=== PATIENT | male | born 1980 | race Caucasian/White ===

== ENCOUNTER 2020-05-06 14:12 | Inpatient (IN) | payer BC ==
[~2020-05-06] VITALS: Ht 172.7 cm; Wt 130.4 kg
[2020-05-06] MEDS ORDERED: methylPREDNISolone SOD SUCC PF 125 MG/2 ML VIAL. IV ONE (15:00)
[2020-05-06] MEDS ORDERED: IV NORMAL SALINE 1000ML BAG 1,000 ML IV ONE (15:00)
--- NOTE | 2020-05-06 15:03 | ED.ADGEN ---
Past Medical History Past Medical History: Hypertension, Pneumonia Past Surgical History: Other Additional Past Surgical Histo: KNEE SURGERY, BROKEN RIGHT ARM WITH SURGERY Smoking Status: Current Some Day Smoker Alcohol Use: Occasionally General Adult EDM: Chief Complaint: SHORTNESS OF BREATH HPI: HPI: Patient is a 40-year-old male who arrives ambulatory to the emergency department complaining progressive difficulty breathing. Patient reports his breathing today has become considerably more labored than it has in the past 2 days. Patient reports on Monday this week he was diagnosed with coronavirus. Patient reports since that time he has become progressively more short of breath and sta kendra he has mild chest tightness. Patient is speaking in multiple words however does not make complete sentences. He is awake, alert and ill-appearing. Review of Systems: Review of Systems: Constitutional: Denies fever or chills. [] Eyes: Denies change in visual acuity. [] HENT: Denies nasal congestion or sore throat. [] Respiratory: Reports to difficulty/shortness of air with coughing. Cardiovascular: Reports chest tightness. GI: Denies abdominal pain, nausea, vomiting, bloody stools or diarrhea. [] : Denies dysuria. [] Musculoskeletal: Denies back pain or joint pain. [] Integument: Denies rash. [] Neurologic: Denies headache, focal weakness or sensory changes. [] Endocrine: Denies polyuria or polydipsia. [] Lymphatic: Denies swollen glands. [] Psychiatric: Denies depression or anxiety. [] Current Medications: Current Medications Medications (Trade) Dose Ordered Sig/Eri Start Time Stop Time Status Last Admin Dose Admin Levofloxacin/ Dextrose 150 ml @ 100 mls/hr 1X ONCE 05/06/20 15:00 05/06/20 16:29 05/06/20 15:25 100 MLS/HR Methylprednisolone Sodium Succinate (SOLU-Medrol 125MG VIAL) 125 mg 1X ONCE 05/06/20 15:00 05/06/20 15:01 DC 05/06/20 15:24 125 MG Sodium Chloride 1,000 ml @ 1,000 mls/hr 1X ONCE 05/06/20 15:00 05/06/20 15:59 DC 05/06/20 15:25 1,000 MLS/HR Allergies: Allergies: Allergies Coded Allergies Type Severity Reaction Last Updated Verified No Known Drug Allergies 05/06/20 No Physical Exam: PE: Constitutional: Patient is visibly uncomfortable and ill-appearing. Well developed, well nourished, non-toxic appearance. [] HENT: Normocephalic, atraumatic, bilateral external ears normal, oropharynx moist, no oral exudates, nose normal. [] Eyes: PERRLA, EOMI, conjunctiva normal, no discharge. [] Neck: Normal range of motion, no tenderness, supple, no stridor. [] Cardiovascular: Tachycardia. no murmur [] Lungs & Thorax: Patient demonstrates tachypnea with shallow breathing. There are scant crackles in the may be heard bilaterally. Abdomen: Bowel sounds normal, soft, no tenderness, no masses, no pulsatile masses. [] Skin: Warm, dry, no erythema, no rash. [] Back: No tenderness, no CVA tenderness. [] Extremities: No tenderness, no cyanosis, no clubbing, ROM intact, no edema. [] Neurologic: Alert and oriented X 3, normal motor function, normal sensory function, no focal deficits noted. [] Psychologic: Affect normal, judgement normal, mood normal. [] Current Patient Data: Labs: Laboratory Tests Test 05/06/20 14:23 05/06/20 15:31 White Blood Count 6.9 x10^3/uL (4.0-11.0) Red Blood Count 4.93 x10^6/uL (4.30-5.70) Hemoglobin 14.1 g/dL (13.0-17.5) Hematocrit 40.6 % (39.0-53.0) Mean Corpuscular Volume 83 fL (79-100) Mean Corpuscular Hemoglobin 29 pg (25-35) Mean Corpuscular Hemoglobin Concent 35 g/dL (31-37) Red Cell Distribution Width 13.1 % (11.5-14.5) Platelet Count 166 x10^3/uL (140-400) Neutrophils (%) (Auto) 86 % (31-73) H Lymphocytes (%) (Auto) 8 % (24-48) L Monocytes (%) (Auto) 6 % (0-9) Eosinophils (%) (Auto) 0 % (0-3) Basophils (%) (Auto) 1 % (0-3) Neutrophils # (Auto) 5.9 x10^3/uL (1.8-7.7) Lymphocytes # (Auto) 0.5 x10^3/uL (1.0-4.8) L Monocytes # (Auto) 0.4 x10^3/uL (0.0-1.1) Eosinophils # (Auto) 0.0 x10^3/uL (0.0-0.7) Basophils # (Auto) 0.0 x10^3/uL (0.0-0.2) Platelet Estimate Pending Sodium Level 130 mmol/L (136-145) L Potassium Level 3.8 mmol/L (3.5-5.1) Chloride Level 93 mmol/L (98-107) L Carbon Dioxide Level 27 mmol/L (21-32) Anion Gap 10 (6-14) Blood Urea Nitrogen 14 mg/dL (8-26) Creatinine 1.1 mg/dL (0.7-1.3) Estimated GFR (Cockcroft-Gault) 73.8 BUN/Creatinine Ratio 13 (6-20) Glucose Level 152 mg/dL (70-99) H Calcium Level 9.0 mg/dL (8.5-10.1) Total Bilirubin 1.2 mg/dL (0.2-1.0) H Aspartate Amino Transferase (AST) 76 U/L (15-37) H Alanine Aminotransferase (ALT) 127 U/L (16-63) H Alkaline Phosphatase 132 U/L (46-116) H Creatine Kinase 123 U/L (39-308) Creatine Kinase MB (Mass) 0.7 ng/mL (0.0-3.6) Creatine Kinase MB Relative Index 0.6 % (0-4) Troponin I Quantitative < 0.017 ng/mL (0.000-0.055) WV-Nwt-H-Type Natriuretic Peptide 260 pg/mL (0-124) H Total Protein 7.4 g/dL (6.4-8.2) Albumin 3.0 g/dL (3.4-5.0) L Albumin/Globulin Ratio 0.7 (1.0-1.7) L Influenza Type A Antigen Negative (NEGATIVE) Influenza Type B Antigen Negative (NEGATIVE) Laboratory Tests 05/06/20 14:23 Laboratory Tests 05/06/20 14:23 Vital Signs: Vital Signs Date Time Temp Pulse Resp B/P (MAP) Pulse Ox O2 Delivery O2 Flow Rate FiO2 05/06/20 15:40 Venturi Mask 05/06/20 14:22 103.2 140 24 178/89 (118) 5.0 103.2 EKG: EKG: EKG was obtained at 1435 hrs. and demonstrates sinus tachycardia ventricular rate of 138 bpm. There is left axis deviation present with a left anterior fascicular block. I did not appreciate any acute ST/T wave changes denoting ischemia. [] Heart Score: HEART Score for Chest Pain: HEART Score for Chest Pain Response (Comments) Value History Slighlty/Non-Suspicious 0 ECG Normal 0 Age < 45 0 Risk Factors >3 Risk Factors or Hx CAD 2 Troponin < Normal Limit 0 Total 2 Risk Factors: Risk Factors: DM, Current or recent (<one month) smoker, HTN, HLP, family history of CAD, obesity. Risk Scores: Score 0 - 3: 2.5% MACE over next 6 weeks - Discharge Home Score 4 - 6: 20.3% MACE over next 6 weeks - Admit for Clinical Observation Score 7 - 10: 72.7% MACE over next 6 weeks - Early Invasive Strategies Radiology/Procedures: Radiology/Procedures: [] Impression: [facility] [address] [place], [place] [id number] IMAGING REPORT Signed PATIENT: ARIANNE JARVIS ACCOUNT: [id number] : 1980 LOCATION: ER AGE: 40 SEX: M EXAM STATUS: PRE ER ORD. PHYSICIAN: GAETANO MENDOZA DO REASON: SOA PROCEDURE: PORTABLE CHEST 1V Examination: XR CHEST 1V History: Reason: SOA / Spl. Instructions: / History: Comparison/Correlation: None Findings: Portable frontal view chest was obtained. Heart size normal. Pulmonary vessels which are is borderline. Limited pulmonary inflation. Extensive infiltrates throughout the lung lord noted. No pneumothorax. Bony structures are unremarkable. Minimal left pleural effusion is questioned. Left costophrenic angle is not optimally included. Impression: Extensive infiltrates throughout the lung lord. Follow-up to resolution recommended. Electronically signed by: Tico Maradiaga MD (05/06/2020 3:13 PM) [id number] DICTATED and SIGNED BY: TICO MARADIAGA MD DATE: 05/06/20 [id number] 0 Course & Med Decision Making: Course & Med Decision Making Pertinent Labs and Imaging studies reviewed. (See chart for details) [] Shikhaon Disclaimer: Elisabeth Disclaimer: This electronic medical record was generated, in whole or in part, using a voice recognition dictation system. Departure Departure Impression: Primary Impression: COVID-19 Additional Impressions: Respiratory failure Transaminitis Hyponatremia Disposition: ADMITTED INPT THIS HOSP Admitting Physician: KAMILLA Condition: CRITICAL Problem Qualifiers GAETANO MENDOZA DO May 06, 2020 15:03
--- NOTE | 2020-05-06 15:15 | RAD ---
Examination: XR CHEST 1V History: Reason: SOA / Spl. Instructions: / History: Comparison/Correlation: None Findings: Portable frontal view chest was obtained. Heart size normal. Pulmonary vessels which are is borderline. Limited pulmonary inflation. Extensive infiltrates throughout the lung lord noted. No pneumothorax. Bony structures are unremarkable. Minimal left pleural effusion is questioned. Left cos tophrenic angle is not optimally included. Impression: Extensive infiltrates throughout the lung lord. Follow-up to resolution recommended. Electronically signed by: Tico Worthington MD (05/06/2020 3:13 PM) [id number]
[2020-05-06 15:16] LABS: BASO % 1 % (0-3); EOS % 0 % (0-3); HEMATOCRIT 40.6 % (39.0-53.0); HEMOGLOBIN 14.1 g/dL (13.0-17.5); LYMPH # 0.5 x10^3/uL (1.0-4.8); LYMPH % 8 % (24-48); MEAN CORPUSCULAR HEMOGLOBIN 29 pg (25-35); MEAN CORPUSCULAR HGB CONC 35 g/dL (31-37); MEAN CORPUSCULAR VOLUME 83 fL (79-100); MONO # 0.4 x10^3/uL (0.0-1.1); MONO % 6 % (0-9); NEUT # 5.9 x10^3/uL (1.8-7.7); NEUT % 86 % (31-73); PLATELET COUNT 166 x10^3/uL (140-400); RED BLOOD COUNT 4.93 x10^6/uL (4.30-5.70); RED CELL DISTRIBUTION WIDTH 13.1 % (11.5-14.5); WHITE BLOOD COUNT 6.9 x10^3/uL (4.0-11.0)
[2020-05-06 15:43] LABS: CREATININE 1.1 mg/dL (0.7-1.3); GFR 73.8; POTASSIUM 3.8 mmol/L (3.5-5.1)
[2020-05-06 15:49] LABS: ALBUMIN/GLOBULIN RATIO 0.7 (1.0-1.7); TOTAL BILIRUBIN 1.2 mg/dL (0.2-1.0); TOTAL PROTEIN 7.4 g/dL (6.4-8.2)
[2020-05-06 16:06] LABS: BASE EXCESS ABG 2 mmol/L (-3-3); HCO3 ABG 23 mmol/L (21-28); PCO2 ABG 26 mmHg (35-46); PO2 ABG 67 mmHg (75-108); SAT O2 ABG 95 % (92-99)
--- NOTE | 2020-05-06 16:11 | PDOC1 ---
History and Physical Date of Admission Date of Admission DATE: 05/06/20 TIME: 16:09 Identification/Chief Complaint Chief Complaint seen in er with acute resp distress, known COVID POSITIVE 40-year-old male who arrives ambulatory to the emergency department complaining progressive difficulty breathing., breathing today has become considerably more labored than it has in the past 2 days. Patient reports on 05-04 he was diagnosed with coronavirus. TEMP on arrival 103.2 F abg c/w resp alkalosis and hypoxia he has become progressively more short of breath and states he has mild chest tightness. HYPOXIC, alert and ill-appearing. Past Medical History Past Medical History Past Medical History Past Medical History Past Medical History: Hypertension, Pneumonia Past Surgical History: Other Additional Past Surgical Histo: KNEE SURGERY, BROKEN RIGHT ARM WITH SURGERY Smoking Status: Current Some Day Smoker Alcohol Use: Occasionally FHX COPD, OBESITY Family History Family History: Hypertension Social History Smoke: <1 pack per day ALCOHOL: none Drugs: None Current Problem List Problem List Problems Medical Problems: (1) COVID-19 Status: Acute (2) Respiratory failure Status: Acute Current Medications Current Medications Current Medications Levofloxacin/ Dextrose 150 ml @ 100 mls/hr 1X ONCE IV Last administered on 05/06/20at 15:25; Start 05/06/20 at 15:00; Stop 05/06/20 at 16:29 Methylprednisolone Sodium Succinate (SOLU-Medrol 125MG VIAL) 125 mg 1X ONCE IV Last administered on 05/06/20at 15:24; Start 05/06/20 at 15:00; Stop 05/06/20 at 15:01; Status DC Sodium Chloride 1,000 ml @ 1,000 mls/hr 1X ONCE IV Last administered on 05/06/20at 15:25; Start 05/06/20 at 15:00; Stop 05/06/20 at 15:59; Status DC Allergies Allergies: Coded Allergies: No Known Drug Allergies (Unverified , 05/06/20) ROS Review of System Constitutional: POS fever . [] Eyes: Denies change in visual acuity. [] HENT: Denies nasal congestion or sore throat. [] Respiratory: Reports to difficulty/shortness of air with coughing. Cardiovascular: Reports chest tightness. GI: Denies abdominal pain, nausea, vomiting, bloody stools or diarrhea. [] : Denies dysuria. [] Musculoskeletal: Denies back pain or joint pain. [] Integument: Denies rash. [] Neurologic: Denies headache, focal weakness or sensory changes. [] Endocrine: Denies polyuria or polydipsia. [] Lymphatic: Denies swollen glands. [] Psychiatric: Denies depression or anxiety. [] 14 PT ROS OTHERWISE NEG Respiratory: YES: Cough, Shortness of breath, SOB with excertion Physical Exam Physical Exam Constitutional: uncomfortable and ill-appearing. Well developed, well nourished, non-toxic appearance. [] HENT: Normocephalic, atraumatic, bilateral external ears normal, oropharynx moist, no oral exudates, nose normal. [] Eyes: PERRLA, EOMI, conjunctiva normal, no discharge. [] Neck: Normal range of motion, no tenderness, supple, no stridor. [] Cardiovascular: Tachycardia. no murmur [] Lungs & Thorax: tachypnea , crackles , bilaterally. Abdomen: Bowel sounds normal, soft, no tenderness, no masses, no pulsatile masses. [] Skin: Warm, dry, no erythema, no rash. [] Back: No tenderness, no CVA tenderness. [] Extremities: No tenderness, no cyanosis, no clubbing, ROM intact, no edema. [] Neurologic: Alert and oriented X 3, normal motor function, normal sensory function, no focal deficits noted. [] Psychologic: Affect normal, judgment normal, mood normal. [] General: Alert, Oriented X3, Cooperative, mild distress HEENT: EOMI Heart: RRR, no gallops, no murmurs Breasts: Not examined Abdomen: Soft, No tenderness Rectal Exam: not examined PELVIC: Examination not indicated Extremities: No cyanosis Neuro: Normal speech, Cranial nerves 3-12 NL Psych/Mental Status: Mental status NL, Mood NL Vitals Vitals Vital Signs Date Time Temp Pulse Resp B/P (MAP) Pulse Ox O2 Delivery O2 Flow Rate FiO2 05/06/20 15:40 Venturi Mask 05/06/20 14:22 103.2 140 24 178/89 (118) 5.0 103.2 Labs Labs Laboratory Tests Test 05/06/20 14:23 White Blood Count 6.9 x10^3/uL (4.0-11.0) Red Blood Count 4.93 x10^6/uL (4.30-5.70) Hemoglobin 14.1 g/dL (13.0-17.5) Hematocrit 40.6 % (39.0-53.0) Mean Corpuscular Volume 83 fL (79-100) Mean Corpuscular Hemoglobin 29 pg (25-35) Mean Corpuscular Hemoglobin Concent 35 g/dL (31-37) Red Cell Distribution Width 13.1 % (11.5-14.5) Platelet Count 166 x10^3/uL (140-400) Neutrophils (%) (Auto) 86 % (31-73) Lymphocytes (%) (Auto) 8 % (24-48) Monocytes (%) (Auto) 6 % (0-9) Eosinophils (%) (Auto) 0 % (0-3) Basophils (%) (Auto) 1 % (0-3) Neutrophils # (Auto) 5.9 x10^3/uL (1.8-7.7) Lymphocytes # (Auto) 0.5 x10^3/uL (1.0-4.8) Monocytes # (Auto) 0.4 x10^3/uL (0.0-1.1) Eosinophils # (Auto) 0.0 x10^3/uL (0.0-0.7) Basophils # (Auto) 0.0 x10^3/uL (0.0-0.2) Sodium Level 130 mmol/L (136-145) Potassium Level 3.8 mmol/L (3.5-5.1) Chloride Level 93 mmol/L (98-107) Carbon Dioxide Level 27 mmol/L (21-32) Anion Gap 10 (6-14) Blood Urea Nitrogen 14 mg/dL (8-26) Creatinine 1.1 mg/dL (0.7-1.3) Estimated GFR (Cockcroft-Gault) 73.8 BUN/Creatinine Ratio 13 (6-20) Glucose Level 152 mg/dL (70-99) Calcium Level 9.0 mg/dL (8.5-10.1) Total Bilirubin 1.2 mg/dL (0.2-1.0) Aspartate Amino Transf (AST/SGOT) 76 U/L (15-37) Alanine Aminotransferase (ALT/SGPT) 127 U/L (16-63) Alkaline Phosphatase 132 U/L (46-116) Creatine Kinase 123 U/L (39-308) Creatine Kinase MB (Mass) 0.7 ng/mL (0.0-3.6) Creatine Kinase MB Relative Index 0.6 % (0-4) Troponin I Quantitative < 0.017 ng/mL (0.000-0.055) BB-Mlh-F-Type Natriuretic Peptide 260 pg/mL (0-124) Total Protein 7.4 g/dL (6.4-8.2) Albumin 3.0 g/dL (3.4-5.0) Albumin/Globulin Ratio 0.7 (1.0-1.7) Laboratory Tests Test 05/06/20 14:23 White Blood Count 6.9 x10^3/uL (4.0-11.0) Red Blood Count 4.93 x10^6/uL (4.30-5.70) Hemoglobin 14.1 g/dL (13.0-17.5) Hematocrit 40.6 % (39.0-53.0) Mean Corpuscular Volume 83 fL (79-100) Mean Corpuscular Hemoglobin 29 pg (25-35) Mean Corpuscular Hemoglobin Concent 35 g/dL (31-37) Red Cell Distribution Width 13.1 % (11.5-14.5) Platelet Count 166 x10^3/uL (140-400) Neutrophils (%) (Auto) 86 % (31-73) Lymphocytes (%) (Auto) 8 % (24-48) Monocytes (%) (Auto) 6 % (0-9) Eosinophils (%) (Auto) 0 % (0-3) Basophils (%) (Auto) 1 % (0-3) Neutrophils # (Auto) 5.9 x10^3/uL (1.8-7.7) Lymphocytes # (Auto) 0.5 x10^3/uL (1.0-4.8) Monocytes # (Auto) 0.4 x10^3/uL (0.0-1.1) Eosinophils # (Auto) 0.0 x10^3/uL (0.0-0.7) Basophils # (Auto) 0.0 x10^3/uL (0.0-0.2) Sodium Level 130 mmol/L (136-145) Potassium Level 3.8 mmol/L (3.5-5.1) Chloride Level 93 mmol/L (98-107) Carbon Dioxide Level 27 mmol/L (21-32) Anion Gap 10 (6-14) Blood Urea Nitrogen 14 mg/dL (8-26) Creatinine 1.1 mg/dL (0.7-1.3) Estimated GFR (Cockcroft-Gault) 73.8 BUN/Creatinine Ratio 13 (6-20) Glucose Level 152 mg/dL (70-99) Calcium Level 9.0 mg/dL (8.5-10.1) Total Bilirubin 1.2 mg/dL (0.2-1.0) Aspartate Amino Transf (AST/SGOT) 76 U/L (15-37) Alanine Aminotransferase (ALT/SGPT) 127 U/L (16-63) Alkaline Phosphatase 132 U/L (46-116) Creatine Kinase 123 U/L (39-308) Creatine Kinase MB (Mass) 0.7 ng/mL (0.0-3.6) Creatine Kinase MB Relative Index 0.6 % (0-4) Troponin I Quantitative < 0.017 ng/mL (0.000-0.055) FK-Cfr-A-Type Natriuretic Peptide 260 pg/mL (0-124) Total Protein 7.4 g/dL (6.4-8.2) Albumin 3.0 g/dL (3.4-5.0) Albumin/Globulin Ratio 0.7 (1.0-1.7) Images Images Examination: XR CHEST 1V History: Reason: SOA / Spl. Instructions: / History: Comparison/Correlation: None Findings: Portable frontal view chest was obtained. Heart size normal. Pulmonary vessels which are is borderline. Limited pulmonary inflation. Extensive infilt rates throughout the lung lord noted. No pneumothorax. Bony structures are unremarkable. Minimal left pleural effusion is questioned. Left costophrenic angle is not optimally included. Impression: Extensive infiltrates throughout the lung lord. Follow-up to resolution recommended. Electronically signed by: Jessica Maradiaga MD (05/06/2020 3:13 PM) [id number] DICTATED and SIGNED BY: JESSICA MARADIAGA MD VTE Prophylaxis Ordered VTE Prophylaxis Devices: Yes VTE Pharmacological Prophylaxi: Yes Assessment/Plan Assessment/Plan Impression: Primary Impression: Fever scec to viremia , sepsis Transaminitis Hyponatremia Acute hypoxic respiratory failure Extensive infiltrates throughout BILATERAL lung lord morbid obesity dvt prophylaxis, lovenox tobacco abuse disorder plan admit blood cultures icu bed emperic iv antibiotics consult pulmonary o2 support follow lytes gi prophylaxis Justifications for Admission Other Justification DONNY FARIA MD May 06, 2020 16:11
[2020-05-06 16:12] LABS: INFLUENZA A PATIENT NEGATIVE (NEGATIVE); INFLUENZA B PATIENT NEGATIVE (NEGATIVE)
[2020-05-06 16:12] LABS: CORRECTED PCO2 ABG 29 mmHg; CORRECTED PH ABG 7.52; CORRECTED PO2 ABG 80 mmHg
[2020-05-06] MEDS ORDERED: ACETAMINOPHEN 500 MG TABLET PO ONE (16:15)
[2020-05-06] MEDS ORDERED: SODIUM PHOSPHATES 19/7GM 133 ML ENEMA. PR PRN (16:30)
[2020-05-06] MEDS ORDERED: DOCUSATE SODIUM 100 MG CAPSULE. PO PRN (16:30)
[2020-05-06] MEDS ORDERED: MAG HYDROX/ALUMINUM HYD/SIMETH 30 ML ORAL.SUSP PO PRN (16:30)
[2020-05-06] MEDS ORDERED: AZITHRMYCN 500MG IVPB FOR OMNI 250 ML IV ONE (16:30)
[2020-05-06] MEDS ORDERED: ONDANSETRON PF 4 MG/2 ML VIAL. IV PRN (16:30)
[2020-05-06] MEDS ORDERED: LORazepam 0.5 MG TABLET PO PRN (16:30)
[2020-05-06] MEDS ORDERED: 0.9 % SODIUM CHLORIDE 10 ML DISP.SYRIN. IV PRN (16:30)
[2020-05-06] MEDS ORDERED: ALBUTEROL SULFATE 2.5 MG/3 ML NEBU. NEB PRN (16:30)
[2020-05-06] MEDS ORDERED: CONTRAST GIVEN. MC PRN (16:45)
[2020-05-06] MEDS ORDERED: IOHEXOL 350 MG/ML 100 ML VIAL. IV ONE (16:45)
[2020-05-06] MEDS ORDERED: ENOXAPARIN 40 MG/0.4 ML SYRINGE. SQ SCH (17:00)
--- NOTE | 2020-05-06 17:14 | RAD ---
Exam: CT of chest with contrast INDICATION: Covid positive, worsening short of air TECHNIQUE: Sequential axial images through the chest obtained following the administration 100 mL of Omni 350 IV contrast. Sagittal and coronal reformatted images were reconstructed from the axial data and reviewed. 3-D reformatted images were reconstructed from the axial data and reviewed. Comparisons: None FINDINGS: There are several mildly enlarged prevascular, subcarinal and bilateral hilar lymph nodes are noted. Heart size is normal. No pericardial effusion. Thoracic aorta has a normal course and caliber. Pulmon elena artery is not enlarged. No pulmonary embolus identified within the main, lobar or segmental pulmo nary arteries. Airways are patent. There is patchy areas of groundglass opacity in lungs bilaterally. There is no co nsolidation. No pleural effusion or thickening. Visualized upper abdomen is unremarkable. No suspicious osseous lesions or acute fractures. IMPRESSION: 1. No pulmonary embolus identified within the main, lobar or segmental pulmonary arteries. 2. Extensive patchy ground glass opacity throughout the lungs bilaterally favored to be infectious o r inflammatory in etiology and consistent with history of Covid. Exposure: One or more of the following in the visualized dose reduction techniques were utilized for this examination: 1. Automated exposure control 2. Adjustment of the MA and/or KV according to patient size 3. Use of iterative of reconstructive technique Electronically signed by: Corby Ring MD (05/06/2020 5:12 PM) [facility]
[2020-05-06] MEDS: IV NORMAL SALINE 1000ML BAG 1,000 ML IV SCH ×2 (17:28→21:25)
[2020-05-06] MEDS: cefTRIAXone IV Push 1 GM VIAL. IVP SCH (17:30)
[2020-05-06 18:23] LABS: % BANDS 27 % (0-9); % BASOS 1 % (0-3); % LYMPHS 7 % (24-48); % METAS 1 % (0-0); % MONOS 4 % (0-10); % SEGS 60 % (35-66); PLT ESTIMATE ADEQUATE (ADEQUATE)
[2020-05-06 20:01] LABS: BILIRUBIN,URINE SMALL (NEG); CLARITY,URINE CLEAR; COLOR,URINE ORANGE; NITRITE,URINE NEGATIVE (NEG); PH,URINE 6.5 (<5.0-8.0); PROTEIN,URINE 100 mg/dL (NEG-TRACE)
[2020-05-06 20:08] LABS: BACTERIA,URINE FEW /HPF (0-FEW)
[2020-05-06 20:15] VITALS: BP 124/72
[2020-05-06 20:30] VITALS: BP 123/78
[2020-05-06 20:45] VITALS: BP 119/75
[2020-05-06 21:00] VITALS: BP 120/73
--- NOTE | 2020-05-06 21:00 | NUR ---
Patient arrived to ICU room 103 from the ED. Report received from NICHOLE Moss. Patient alert and oriented and answers questions appropriately. Venti mask at 15L/100%. IVFs infusing. Reports relief with oxygen. Denies pain or n/v/d. VSS. Will continue to monitor.
[2020-05-06] MEDS: DEXAMETHASONE SOD PHOS 4 MG/ML VIAL IVP SCH (21:26)
[2020-05-06 22:00] VITALS: BP 129/68
[2020-05-06 23:00] VITALS: BP 139/64
[2020-05-06] MEDS: ACETAMINOPHEN 325 MG TABLET. PO PRN (23:46)
[2020-05-07] VITALS (24 sets, daily range): BP systolic 117–204; BP diastolic 57–115
[2020-05-07] MEDS: cloNIDine HCL 0.1 MG TABLET PO PRN ×2 (05:08→21:03)
[2020-05-07] MEDS: ACETAMINOPHEN 325 MG TABLET. PO PRN ×2 (05:09→21:24)
[2020-05-07] MEDS: guaiFENesin ORAL 200 MG/10 ML LIQUID. PO PRN (05:12)
[2020-05-07 07:46] LABS: BASO % 0 % (0-3); EOS % 0 % (0-3); LYMPH # 0.5 x10^3/uL (1.0-4.8); LYMPH % 5 % (24-48); MEAN CORPUSCULAR HEMOGLOBIN 28 pg (25-35); MEAN CORPUSCULAR HGB CONC 33 g/dL (31-37); MEAN CORPUSCULAR VOLUME 84 fL (79-100); MONO # 0.5 x10^3/uL (0.0-1.1); MONO % 5 % (0-9); NEUT # 10.4 x10^3/uL (1.8-7.7); NEUT % 91 % (31-73); PLATELET COUNT 189 x10^3/uL (140-400); RED BLOOD COUNT 4.64 x10^6/uL (4.30-5.70); RED CELL DISTRIBUTION WIDTH 13.5 % (11.5-14.5); WHITE BLOOD COUNT 11.5 x10^3/uL (4.0-11.0)
--- NOTE | 2020-05-07 07:48 | PDOC ---
PROGRESS NOTES Date of Service: DATE: 05/07/20 TIME: 07:48 Chief Complaint Chief Complaint VTE Prophylaxis Ordered VTE Prophylaxis Devices: Yes VTE Pharmacological Prophylaxi: Yes Assessment/Plan Assessment/Plan Impression: Primary Impression: Fever secondary to viremia , sepsis Transaminitis Hyponatremia Acute hypoxic respiratory failure Extensive infiltrates throughout BILATERAL lung lord, concerning for covid/ SARS morbid obesity dvt prophylaxis, lovenox tobacco abuse disorder uncontrolled hypertension plan admit blood cultures icu bed emperic iv antibiotics consult pulmonary o2 support NRB MASK 15% O2 follow lytes gi prophylaxis iv labetalol 5-10mg q 3 hrs prn bp support iv decadron 6 mg bid pepsid 20mg po bid zinc 220mg po daily, vitamin c, vitamin D Vapotherm. may require switch to noninvasive ventilation //BiPAP. 40 min cc time History of Present Illness History of Present Illness Identification/Chief Complaint Chief Complaint seen in er with acute resp distress, known COVID POSITIVE 40-year-old male who arrives ambulatory to the emergency department complaining progressive difficulty breathing., breathing today has become considerably more labored than it has in the past 2 days. Patient reports on 05-04 he was diagnosed with coronavirus. TEMP on arrival 103.2 F abg c/w resp alkalosis and hypoxia he has become progressively more short of breath and states he has mild chest tightness. HYPOXIC, alert and ill-appearing. Past Medical History Past Medical History Past Medical History Past Medical History Past Medical History: Hypertension, Pneumonia Past Surgical History: Other Additional Past Surgical Histo: KNEE SURGERY, BROKEN RIGHT ARM WITH SURGERY Smoking Status: Current Some Day Smoker Alcohol Use: Occasionally FHX COPD, OBESITY Family History Family History: Hypertension Social History Smoke: <1 pack per day ALCOHOL: none Drugs: None Current Problem List Problem List Problems Medical Problems: (1) COVID-19 Status: Acute (2) Respiratory failure Status: Acute Vitals Vitals Vital Signs Date Time Temp Pulse Resp B/P (MAP) Pulse Ox O2 Delivery O2 Flow Rate FiO2 05/07/20 07:00 117 24 123/83 (96) 95 NonRebreather Mask 15.0 05/07/20 04:00 101.4 101.4 Physical Exam Physical Exam Constitutional: uncomfortable and ill-appearing. Well developed, well nourished, non-toxic appearance. [] HENT: Normocephalic, atraumatic, bilateral external ears normal, oropharynx moist, no oral exudates, nose normal. [] Eyes: PERRLA, EOMI, conjunctiva normal, no discharge. [] Neck: Normal range of motion, no tenderness, supple, no stridor. [] Cardiovascular: Tachycardia. no murmur [] Lungs & Thorax: tachypnea , crackles , bilaterally. Abdomen: Bowel sounds normal, soft, no tenderness, no masses, no pulsatile masses. [] Skin: Warm, dry, no erythema, no rash. [] Back: No tenderness, no CVA tenderness. [] Extremities: No tenderness, no cyanosis, no clubbing, ROM intact, no edema. [] Neurologic: Alert and oriented X 3, normal motor function, normal sensory function, no focal deficits noted. [] Psychologic: Affect normal, judgment normal, mood normal. [] General: Alert, Oriented X3, Cooperative, mild distress HEENT: EOMI Heart: RRR, no gallops, no murmurs Breasts: Not examined Abdomen: Soft, No tenderness Rectal Exam: not examined PELVIC: Examination not indicated Extremities: No cyanosis Neuro: Normal speech, Cranial nerves 3-12 NL General: Alert, Oriented X3, Cooperative, mild distress, moderate distress Abdomen: Soft, No tenderness Extremities: No cyanosis Labs LABS Exam: CT of chest with contrast INDICATION: Covid positive, worsening short of air TECHNIQUE: Sequential axial images through the chest obtained following the administration 100 mL of Omni 350 IV contrast. Sagittal and coronal reformatted images were reconstructed from the axial data and reviewed. 3-D reformatted images were reconstructed from the axial data and reviewed. Comparisons: None FINDINGS: There are several mildly enlarged prevascular, subcarinal and bilateral hilar lymph nodes are noted. Heart size is normal. No pericardial effusion. Thoracic aorta has a normal course and caliber. Pulmonary artery is not enlarged. No pulmonary embolus identified within the main, lobar or segmental pulmonary arteries. Airways are patent. There is patchy areas of groundglass opacity in lungs bilaterally. There is no consolidation. No pleural effusion or thickening. Visualized upper abdomen is unremarkable. No suspicious osseous lesions or acute fractures. IMPRESSION: 1. No pulmonary embolus identified within the main, lobar or segmental pulmonary arteries. 2. Extensive patchy ground glass opacity throughout the lungs bilaterally favored to be infectious or inflammatory in etiology and consistent with history of Covid. Exposure: One or more of the following in the visualized dose reduction techniques were utilized for this examination: 1. Automated exposure control 2. Adjustment of the MA and/or KV according to patient size 3. Use of iterative of reconstructive technique Electronically signed by: Osito Underwood MD (05/06/2020 5:12 PM) [facility] DICTATED and SIGNED BY: OSITO UNDERWOOD MD Laboratory Tests Test 05/06/20 14:23 05/06/20 15:31 05/06/20 16:00 05/06/20 19:48 White Blood Count 6.9 x10^3/uL (4.0-11.0) Red Blood Count 4.93 x10^6/uL (4.30-5.70) Hemoglobin 14.1 g/dL (13.0-17.5) Hematocrit 40.6 % (39.0-53.0) Mean Corpuscular Volume 83 fL (79-100) Mean Corpuscular Hemoglobin 29 pg (25-35) Mean Corpuscular Hemoglobin Concent 35 g/dL (31-37) Red Cell Distribution Width 13.1 % (11.5-14.5) Platelet Count 166 x10^3/uL (140-400) Neutrophils (%) (Auto) 86 % (31-73) Lymphocytes (%) (Auto) 8 % (24-48) Monocytes (%) (Auto) 6 % (0-9) Eosinophils (%) (Auto) 0 % (0-3) Basophils (%) (Auto) 1 % (0-3) Neutrophils # (Auto) 5.9 x10^3/uL (1.8-7.7) Lymphocytes # (Auto) 0.5 x10^3/uL (1.0-4.8) Monocytes # (Auto) 0.4 x10^3/uL (0.0-1.1) Eosinophils # (Auto) 0.0 x10^3/uL (0.0-0.7) Basophils # (Auto) 0.0 x10^3/uL (0.0-0.2) Segmented Neutrophils % 60 % (35-66) Band Neutrophils % 27 % (0-9) Lymphocytes % 7 % (24-48) Monocytes % 4 % (0-10) Basophils % 1 % (0-3) Metamyelocytes % 1 % (0-0) Platelet Estimate Adequate (ADEQUATE) Large Platelets Present Sodium Level 130 mmol/L (136-145) Potassium Level 3.8 mmol/L (3.5-5.1) Chloride Level 93 mmol/L (98-107) Carbon Dioxide Level 27 mmol/L (21-32) Anion Gap 10 (6-14) Blood Urea Nitrogen 14 mg/dL (8-26) Creatinine 1.1 mg/dL (0.7-1.3) Estimated GFR (Cockcroft-Gault) 73.8 BUN/Creatinine Ratio 13 (6-20) Glucose Level 152 mg/dL (70-99) Lactic Acid Level 1.6 mmol/L (0.4-2.0) Calcium Level 9.0 mg/dL (8.5-10.1) Total Bilirubin 1.2 mg/dL (0.2-1.0) Aspartate Amino Transf (AST/SGOT) 76 U/L (15-37) Alanine Aminotransferase (ALT/SGPT) 127 U/L (16-63) Alkaline Phosphatase 132 U/L (46-116) Creatine Kinase 123 U/L (39-308) Creatine Kinase MB (Mass) 0.7 ng/mL (0.0-3.6) Creatine Kinase MB Relative Index 0.6 % (0-4) Troponin I Quantitative < 0.017 ng/mL (0.000-0.055) XX-Hmj-L-Type Natriuretic Peptide 260 pg/mL (0-124) Total Protein 7.4 g/dL (6.4-8.2) Albumin 3.0 g/dL (3.4-5.0) Albumin/Globulin Ratio 0.7 (1.0-1.7) Influenza Type A Antigen Negative (NEGATIVE) Influenza Type B Antigen Negative (NEGATIVE) O2 Saturation 95 % (92-99) Arterial Blood pH 7.56 (7.35-7.45) Arterial Blood pH (Temp corrected) 7.52 Arterial Blood pCO2 at Patient Temp 26 mmHg (35-46) Arterial Blood pCO2 (Temp correct) 29 mmHg Arterial Blood pO2 at Patient Temp 67 mmHg (75-108) Arterial Blood pO2 (Temp corrected) 80 mmHg Arterial Blood HCO3 23 mmol/L (21-28) Arterial Blood Base Excess 2 mmol/L (-3-3) FiO2 50/vm Urine Collection Type Void Urine Color [place] Urine Clarity Clear Urine pH 6.5 (<5.0-8.0) Urine Specific [place] >=1.030 (1.000-1.030) Urine Protein 100 mg/dL (NEG-TRACE) Urine Glucose (UA) Negative mg/dL (NEG) Urine Ketones (Stick) Negative mg/dL (NEG) Urine Blood Negative (NEG) Urine Nitrite Negative (NEG) Urine Bilirubin Small (NEG) Urine Urobilinogen Dipstick 4.0 mg/dL (0.2 mg/dL) Urine Leukocyte Esterase Negative (NEG) Urine RBC 1-2 /HPF (0-2) Urine WBC 5-10 /HPF (0-4) Urine Squamous Epithelial Cells Occ /LPF Urine Bacteria Few /HPF (0-FEW) Urine Mucus Slight /LPF Assessment and Plan Assessmemt and Plan Problems Medical Problems: (1) COVID-19 Status: Acute (2) Hyponatremia Status: Acute (3) Respiratory failure Status: Acute (4) Transaminitis Status: Acute Comment Review of Relevant I have reviewed the following items kush (where applicable) has been applied. Labs Laboratory Tests Test 05/06/20 14:23 05/06/20 15:31 05/06/20 16:00 05/06/20 19:48 White Blood Count 6.9 x10^3/uL (4.0-11.0) Red Blood Count 4.93 x10^6/uL (4.30-5.70) Hemoglobin 14.1 g/dL (13.0-17.5) Hematocrit 40.6 % (39.0-53.0) Mean Corpuscular Volume 83 fL (79-100) Mean Corpuscular Hemoglobin 29 pg (25-35) Mean Corpuscular Hemoglobin Concent 35 g/dL (31-37) Red Cell Distribution Width 13.1 % (11.5-14.5) Platelet Count 166 x10^3/uL (140-400) Neutrophils (%) (Auto) 86 % (31-73) Lymphocytes (%) (Auto) 8 % (24-48) Monocytes (%) (Auto) 6 % (0-9) Eosinophils (%) (Auto) 0 % (0-3) Basophils (%) (Auto) 1 % (0-3) Neutrophils # (Auto) 5.9 x10^3/uL (1.8-7.7) Lymphocytes # (Auto) 0.5 x10^3/uL (1.0-4.8) Monocytes # (Auto) 0.4 x10^3/uL (0.0-1.1) Eosinophils # (Auto) 0.0 x10^3/uL (0.0-0.7) Basophils # (Auto) 0.0 x10^3/uL (0.0-0.2) Segmented Neutrophils % 60 % (35-66) Band Neutrophils % 27 % (0-9) Lymphocytes % 7 % (24-48) Monocytes % 4 % (0-10) Basophils % 1 % (0-3) Metamyelocytes % 1 % (0-0) Platelet Estimate Adequate (ADEQUATE) Large Platelets Present Sodium Level 130 mmol/L (136-145) Potassium Level 3.8 mmol/L (3.5-5.1) Chloride Level 93 mmol/L (98-107) Carbon Dioxide Level 27 mmol/L (21-32) Anion Gap 10 (6-14) Blood Urea Nitrogen 14 mg/dL (8-26) Creatinine 1.1 mg/dL (0.7-1.3) Estimated GFR (Cockcroft-Gault) 73.8 BUN/Creatinine Ratio 13 (6-20) Glucose Level 152 mg/dL (70-99) Lactic Acid Level 1.6 mmol/L (0.4-2.0) Calcium Level 9.0 mg/dL (8.5-10.1) Total Bilirubin 1.2 mg/dL (0.2-1.0) Aspartate Amino Transf (AST/SGOT) 76 U/L (15-37) Alanine Aminotransferase (ALT/SGPT) 127 U/L (16-63) Alkaline Phosphatase 132 U/L (46-116) Creatine Kinase 123 U/L (39-308) Creatine Kinase MB (Mass) 0.7 ng/mL (0.0-3.6) Creatine Kinase MB Relative Index 0.6 % (0-4) Troponin I Quantitative < 0.017 ng/mL (0.000-0.055) EN-Spc-S-Type Natriuretic Peptide 260 pg/mL (0-124) Total Protein 7.4 g/dL (6.4-8.2) Albumin 3.0 g/dL (3.4-5.0) Albumin/Globulin Ratio 0.7 (1.0-1.7) Influenza Type A Antigen Negative (NEGATIVE) Influenza Type B Antigen Negative (NEGATIVE) O2 Saturation 95 % (92-99) Arterial Blood pH 7.56 (7.35-7.45) Arterial Blood pH (Temp corrected) 7.52 Arterial Blood pCO2 at Patient Temp 26 mmHg (35-46) Arterial Blood pCO2 (Temp correct) 29 mmHg Arterial Blood pO2 at Patient Temp 67 mmHg (75-108) Arterial Blood pO2 (Temp corrected) 80 mmHg Arterial Blood HCO3 23 mmol/L (21-28) Arterial Blood Base Excess 2 mmol/L (-3-3) FiO2 50/vm Urine Collection Type Void Urine Color [place] Urine Clarity Clear Urine pH 6.5 (<5.0-8.0) Urine Specific [place] >=1.030 (1.000-1.030) Urine Protein 100 mg/dL (NEG-TRACE) Urine Glucose (UA) Negative mg/dL (NEG) Urine Ketones (Stick) Negative mg/dL (NEG) Urine Blood Negative (NEG) Urine Nitrite Negative (NEG) Urine Bilirubin Small (NEG) Urine Urobilinogen Dipstick 4.0 mg/dL (0.2 mg/dL) Urine Leukocyte Esterase Negative (NEG) Urine RBC 1-2 /HPF (0-2) Urine WBC 5-10 /HPF (0-4) Urine Squamous Epithelial Cells Occ /LPF Urine Bacteria Few /HPF (0-FEW) Urine Mucus Slight /LPF Laboratory Tests Test 05/06/20 14:23 05/06/20 15:31 05/06/20 16:00 05/06/20 19:48 White Blood Count 6.9 x10^3/uL (4.0-11.0) Red Blood Count 4.93 x10^6/uL (4.30-5.70) Hemoglobin 14.1 g/dL (13.0-17.5) Hematocrit 40.6 % (39.0-53.0) Mean Corpuscular Volume 83 fL (79-100) Mean Corpuscular Hemoglobin 29 pg (25-35) Mean Corpuscular Hemoglobin Concent 35 g/dL (31-37) Red Cell Distribution Width 13.1 % (11.5-14.5) Platelet Count 166 x10^3/uL (140-400) Neutrophils (%) (Auto) 86 % (31-73) Lymphocytes (%) (Auto) 8 % (24-48) Monocytes (%) (Auto) 6 % (0-9) Eosinophils (%) (Auto) 0 % (0-3) Basophils (%) (Auto) 1 % (0-3) Neutrophils # (Auto) 5.9 x10^3/uL (1.8-7.7) Lymphocytes # (Auto) 0.5 x10^3/uL (1.0-4.8) Monocytes # (Auto) 0.4 x10^3/uL (0.0-1.1) Eosinophils # (Auto) 0.0 x10^3/uL (0.0-0.7) Basophils # (Auto) 0.0 x10^3/uL (0.0-0.2) Segmented Neutrophils % 60 % (35-66) Band Neutrophils % 27 % (0-9) Lymphocytes % 7 % (24-48) Monocytes % 4 % (0-10) Basophils % 1 % (0-3) Metamyelocytes % 1 % (0-0) Platelet Estimate Adequate (ADEQUATE) Large Platelets Present Sodium Level 130 mmol/L (136-145) Potassium Level 3.8 mmol/L (3.5-5.1) Chloride Level 93 mmol/L (98-107) Carbon Dioxide Level 27 mmol/L (21-32) Anion Gap 10 (6-14) Blood Urea Nitrogen 14 mg/dL (8-26) Creatinine 1.1 mg/dL (0.7-1.3) Estimated GFR (Cockcroft-Gault) 73.8 BUN/Creatinine Ratio 13 (6-20) Glucose Level 152 mg/dL (70-99) Lactic Acid Level 1.6 mmol/L (0.4-2.0) Calcium Level 9.0 mg/dL (8.5-10.1) Total Bilirubin 1.2 mg/dL (0.2-1.0) Aspartate Amino Transf (AST/SGOT) 76 U/L (15-37) Alanine Aminotransferase (ALT/SGPT) 127 U/L (16-63) Alkaline Phosphatase 132 U/L (46-116) Creatine Kinase 123 U/L (39-308) Creatine Kinase MB (Mass) 0.7 ng/mL (0.0-3.6) Creatine Kinase MB Relative Index 0.6 % (0-4) Troponin I Quantitative < 0.017 ng/mL (0.000-0.055) XU-Rms-X-Type Natriuretic Peptide 260 pg/mL (0-124) Total Protein 7.4 g/dL (6.4-8.2) Albumin 3.0 g/dL (3.4-5.0) Albumin/Globulin Ratio 0.7 (1.0-1.7) Influenza Type A Antigen Negative (NEGATIVE) Influenza Type B Antigen Negative (NEGATIVE) O2 Saturation 95 % (92-99) Arterial Blood pH 7.56 (7.35-7.45) Arterial Blood pH (Temp corrected) 7.52 Arterial Blood pCO2 at Patient Temp 26 mmHg (35-46) Arterial Blood pCO2 (Temp correct) 29 mmHg Arterial Blood pO2 at Patient Temp 67 mmHg (75-108) Arterial Blood pO2 (Temp corrected) 80 mmHg Arterial Blood HCO3 23 mmol/L (21-28) Arterial Blood Base Excess 2 mmol/L (-3-3) FiO2 50/vm Urine Collection Type Void Urine Color [place] Urine Clarity Clear Urine pH 6.5 (<5.0-8.0) Urine Specific [place] >=1.030 (1.000-1.030) Urine Protein 100 mg/dL (NEG-TRACE) Urine Glucose (UA) Negative mg/dL (NEG) Urine Ketones (Stick) Negative mg/dL (NEG) Urine Blood Negative (NEG) Urine Nitrite Negative (NEG) Urine Bilirubin Small (NEG) Urine Urobilinogen Dipstick 4.0 mg/dL (0.2 mg/dL) Urine Leukocyte Esterase Negative (NEG) Urine RBC 1-2 /HPF (0-2) Urine WBC 5-10 /HPF (0-4) Urine Squamous Epithelial Cells Occ /LPF Urine Bacteria Few /HPF (0-FEW) Urine Mucus Slight /LPF Medications Current Medications Levofloxacin/ Dextrose 150 ml @ 100 mls/hr 1X ONCE IV Last administered on 05/06/20at 15:25; Start 05/06/20 at 15:00; Stop 05/06/20 at 16:29; Status DC Methylprednisolone Sodium Succinate (SOLU-Medrol 125MG VIAL) 125 mg 1X ONCE IV Last administered on 05/06/20at 15:24; Start 05/06/20 at 15:00; Stop 05/06/20 at 15:01; Status DC Sodium Chloride 1,000 ml @ 1,000 mls/hr 1X ONCE IV Last administered on 05/06/20at 15:25; Start 05/06/20 at 15:00; Stop 05/06/20 at 15:59; Status DC Acetaminophen (Tylenol) 1,000 mg 1X ONCE PO Last administered on 05/06/20at 16:21; Start 05/06/20 at 16:15; Stop 05/06/20 at 16:16; Status DC Dexamethasone Sodium Phosphate (Decadron) 6 mg BID IVP Last administered on 05/06/20at 21:26; Start 05/06/20 at 21:00 Ceftriaxone Sodium (Rocephin) 1 gm Q24H IVP Last administered on 05/06/20at 17:30; Start 05/06/20 at 17:00 Azithromycin 250 ml @ 250 mls/hr 1X ONCE IV ; Start 05/06/20 at 16:30; Stop 05/06/20 at 17:29; Status Cancel Ceftriaxone Sodium (Rocephin) 1 gm DAILY08 IVP ; Start 05/07/20 at 08:00; Status UNV Sodium Chloride (Normal Saline Flush) 3 ml QSHIFT PRN IV AFTER MEDS AND BLOOD DRAWS; Start 05/06/20 at 16:30 Sodium Chloride 1,000 ml @ 100 mls/hr Q10H IV Last administered on 05/06/20at 21:25; Start 05/06/20 at 16:30 Ondansetron HCl (Zofran) 4 mg PRN Q4HRS PRN IV NAUSEA/VOMITING; Start 05/06/20 at 16:30 Acetaminophen (Tylenol) 650 mg PRN Q4HRS PRN PO TEMP OVER 100.4F OR MILD PAIN Last administered on 05/07/20at 05:09; Start 05/06/20 at 16:30 Al Hydroxide/Mg Hydroxide (Mylanta Plus Xs) 30 ml PRN DAILY PRN PO HEARTBURN / GAS; Start 05/06/20 at 16:30 Clonidine HCl (Catapres) 0.1 mg PRN Q6HRS PRN PO SBP>160 OR DBP>90 Last administered on 05/07/20at 05:08; Start 05/06/20 at 16:30 Sodium Monofluorophosphate (Fleet Adult) 133 ml PRN DAILY PRN [place] CONSTIPATION; Start 05/06/20 at 16:30 Docusate Sodium (Colace) 100 mg PRN BID PRN PO HARD STOOLS; Start 05/06/20 at 16:30 Albuterol Sulfate (Ventolin Neb Soln) 2.5 mg PRN Q4HRS PRN NEB SHORTNESS OF BREATH; Start 05/06/20 at 16:30 Guaifenesin (Robitussin) 200 mg PRN Q4HRS PRN PO COUGH Last administered on 05/07/20at 05:12; Start 05/06/20 at 16:30 Lorazepam (Ativan) 0.5 mg PRN Q4HRS PRN PO ANXIETY / AGITATION Last administered on 05/07/20at 05:09; Start 05/06/20 at 16:30 Enoxaparin Sodium (Lovenox 40mg Syringe) 40 mg Q24H SQ Last administered on 05/06/20at 17:29; Start 05/06/20 at 17:00 Azithromycin 500 mg/Sodium Chloride 250 ml @ 250 mls/hr Q24H IV ; Start 05/07/20 at 09:00 Iohexol (Omnipaque 350 Mg/ml) 100 ml 1X ONCE IV Last administered on 05/06/20at 17:04; Start 05/06/20 at 16:45; Stop 05/06/20 at 16:46; Status DC Info (CONTRAST GIVEN -- Rx MONITORING) 1 each PRN DAILY PRN MC SEE COMMENTS; Start 05/06/20 at 16:45; Stop 05/08/20 at 16:44 Vitals/I & O Vital Sign - Last 24 Hours 05/06/20 05/06/20 05/06/20 05/06/20 14:22 14:48 15:18 15:40 Temp 103.2 103.2 Pulse 140 138 134 Resp 24 B/P (MAP) 178/89 (118) 173/86 (115) 188/80 (116) Pulse Ox 91 94 O2 Delivery Nasal Cannula Nasal Cannula Nasal Cannula Venturi Mask O2 Flow Rate 5.0 6.0 6.0 05/06/20 05/06/20 05/06/20 05/06/20 15:48 16:18 16:48 17:22 Pulse 132 130 124 114 B/P (MAP) 164/77 (106) 148/74 (98) 146/76 (99) 158/66 (96) Pulse Ox 93 91 98 98 O2 Delivery Venturi Mask Venturi Mask Venturi Mask Venturi Mask O2 Flow Rate 15.0 15.0 15.0 15.0 05/06/20 05/06/20 05/06/20 05/06/20 17:52 18:22 18:52 19:22 Pulse 108 102 100 96 B/P (MAP) 117/60 (79) 118/72 (87) 125/71 (89) 119/65 (83) Pulse Ox 98 100 98 94 O2 Delivery Venturi Mask Venturi Mask Venturi Mask Venturi Mask O2 Flow Rate 15.0 15.0 15.0 15.0 05/06/20 05/06/20 05/06/20 05/06/20 19:52 20:00 20:15 20:30 Temp 98.3 98.3 Pulse 98 96 94 Resp 20 B/P (MAP) 133/80 (97) 124/72 (89) 123/78 (93) Pulse Ox 94 99 99 O2 Delivery Venturi Mask Venturi Mask Venturi Mask Venturi Mask O2 Flow Rate 15.0 15.0 15.0 15.0 05/06/20 05/06/20 05/06/20 05/06/20 20:45 21:00 22:00 23:00 Pulse 94 95 100 102 Resp 20 24 B/P (MAP) 119/75 (90) 120/73 (89) 129/68 (88) 139/64 (89) Pulse Ox 98 99 91 92 O2 Delivery Venturi Mask Venturi Mask Venturi Mask Venturi Mask O2 Flow Rate 15.0 15.0 15.0 15.0 05/06/20 05/07/20 05/07/20 05/07/20 23:59 00:01 01:00 02:00 Temp 100.0 100.0 Pulse 104 96 96 Resp 24 24 24 B/P (MAP) 143/79 (100) 118/57 (77) 117/64 (81) Pulse Ox 96 95 89 O2 Delivery Venturi Mask Venturi Mask Venturi Mask Venturi Mask O2 Flow Rate 15.0 15.0 15.0 15.0 05/07/20 05/07/20 05/07/20 05/07/20 03:00 04:00 04:00 05:00 Temp 101.4 101.4 Pulse 97 104 126 Resp 26 26 26 B/P (MAP) 154/80 (104) 164/87 (112) 188/99 (128) Pulse Ox 98 98 95 O2 Delivery NonRebreather Mask Venturi Mask NonRebreather Mask NonRebreather Mask O2 Flow Rate 15.0 15.0 15.0 15.0 05/07/20 05/07/20 05/07/20 05:08 06:00 07:00 Pulse 97 123 117 Resp 24 24 B/P (MAP) 188/89 183/98 (126) 123/83 (96) Pulse Ox 95 95 O2 Delivery NonRebreather Mask NonRebreather Mask O2 Flow Rate 15.0 15.0 Intake and Output 05/06/20 05/06/20 05/07/20 15:00 23:00 07:00 Intake Total 600 ml 1313 ml Output Total 600 ml 1 ml Balance 0 ml 1312 ml Justicifation of Admission Dx: Justifications for Admission: Justification of Admission Dx: Yes Comminuty Aquired Pneumonia: Dehydration DONNY FARIA MD May 07, 2020 07:48
[2020-05-07] MEDS ORDERED: cefTRIAXone IV Push 1 GM VIAL. IVP SCH (08:00)
[2020-05-07 08:06] LABS: CALCIUM 8.9 mg/dL (8.5-10.1); CREATININE 0.9 mg/dL (0.7-1.3)
[2020-05-07 08:11] LABS: ALBUMIN 2.7 g/dL (3.4-5.0); ALBUMIN/GLOBULIN RATIO 0.6 (1.0-1.7); TOTAL BILIRUBIN 0.8 mg/dL (0.2-1.0); TOTAL PROTEIN 6.9 g/dL (6.4-8.2)
[2020-05-07] MEDS: DEXAMETHASONE SOD PHOS 4 MG/ML VIAL IVP SCH (08:41)
[2020-05-07] MEDS: ASCORBIC ACID 500 MG TABLET PO SCH (08:42)
[2020-05-07] MEDS: LABETALOL 20 MG/4 ML DISP.SYRIN. IVP PRN ×2 (08:42→18:13)
[2020-05-07] MEDS: FAMOTIDINE 20 MG TABLET. PO SCH ×2 (08:42→21:04)
[2020-05-07] MEDS: ZINC SULFATE 220 MG CAPSULE. PO SCH (08:42)
[2020-05-07] MEDS: CHOLECALCIFEROL (VITAMIN D3) 1,000 UNIT TABLET PO SCH (08:42)
[2020-05-07] MEDS ORDERED: DEXAMETHASONE SOD PHOS 4 MG/ML VIAL IVP SCH (09:00)
[2020-05-07] MEDS: amLODIPine BESYLATE 10 MG TABLET PO SCH (09:00)
[2020-05-07] MEDS: ISOSORBIDE MONONITRATE ER 30 MG TAB.ER.24H PO SCH (09:00)
--- NOTE | 2020-05-07 10:05 | PDOC ---
PULMONARY PROGRESS NOTES DATE: 05/07/20 TIME: 10:04 Vitals Vital Signs Date Time Temp Pulse Resp B/P (MAP) Pulse Ox O2 Delivery O2 Flow Rate FiO2 05/07/20 09:00 119 25 196/98 (130) 93 Vapotherm 30.0 05/07/20 08:00 98.5 98.5 Labs Laboratory Tests Test 05/06/20 14:23 05/06/20 15:31 05/06/20 16:00 05/06/20 19:48 White Blood Count 6.9 x10^3/uL (4.0-11.0) Red Blood Count 4.93 x10^6/uL (4.30-5.70) Hemoglobin 14.1 g/dL (13.0-17.5) Hematocrit 40.6 % (39.0-53.0) Mean Corpuscular Volume 83 fL (79-100) Mean Corpuscular Hemoglobin 29 pg (25-35) Mean Corpuscular Hemoglobin Concent 35 g/dL (31-37) Red Cell Distribution Width 13.1 % (11.5-14.5) Platelet Count 166 x10^3/uL (140-400) Neutrophils (%) (Auto) 86 % (31-73) Lymphocytes (%) (Auto) 8 % (24-48) Monocytes (%) (Auto) 6 % (0-9) Eosinophils (%) (Auto) 0 % (0-3) Basophils (%) (Auto) 1 % (0-3) Neutrophils # (Auto) 5.9 x10^3/uL (1.8-7.7) Lymphocytes # (Auto) 0.5 x10^3/uL (1.0-4.8) Monocytes # (Auto) 0.4 x10^3/uL (0.0-1.1) Eosinophils # (Auto) 0.0 x10^3/uL (0.0-0.7) Basophils # (Auto) 0.0 x10^3/uL (0.0-0.2) Segmented Neutrophils % 60 % (35-66) Band Neutrophils % 27 % (0-9) Lymphocytes % 7 % (24-48) Monocytes % 4 % (0-10) Basophils % 1 % (0-3) Metamyelocytes % 1 % (0-0) Platelet Estimate Adequate (ADEQUATE) Large Platelets Present Sodium Level 130 mmol/L (136-145) Potassium Level 3.8 mmol/L (3.5-5.1) Chloride Level 93 mmol/L (98-107) Carbon Dioxide Level 27 mmol/L (21-32) Anion Gap 10 (6-14) Blood Urea Nitrogen 14 mg/dL (8-26) Creatinine 1.1 mg/dL (0.7-1.3) Estimated GFR (Cockcroft-Gault) 73.8 BUN/Creatinine Ratio 13 (6-20) Glucose Level 152 mg/dL (70-99) Lactic Acid Level 1.6 mmol/L (0.4-2.0) Calcium Level 9.0 mg/dL (8.5-10.1) Total Bilirubin 1.2 mg/dL (0.2-1.0) Aspartate Amino Transf (AST/SGOT) 76 U/L (15-37) Alanine Aminotransferase (ALT/SGPT) 127 U/L (16-63) Alkaline Phosphatase 132 U/L (46-116) Creatine Kinase 123 U/L (39-308) Creatine Kinase MB (Mass) 0.7 ng/mL (0.0-3.6) Creatine Kinase MB Relative Index 0.6 % (0-4) Troponin I Quantitative < 0.017 ng/mL (0.000-0.055) OL-[id number]-Type Natriuretic Peptide 260 pg/mL (0-124) Total Protein 7.4 g/dL (6.4-8.2) Albumin 3.0 g/dL (3.4-5.0) Albumin/Globulin Ratio 0.7 (1.0-1.7) Influenza Type A Antigen Negative (NEGATIVE) Influenza Type B Antigen Negative (NEGATIVE) O2 Saturation 95 % (92-99) Arterial Blood pH 7.56 (7.35-7.45) Arterial Blood pH (Temp corrected) 7.52 Arterial Blood pCO2 at Patient Temp 26 mmHg (35-46) Arterial Blood pCO2 (Temp correct) 29 mmHg Arterial Blood pO2 at Patient Temp 67 mmHg (75-108) Arterial Blood pO2 (Temp corrected) 80 mmHg Arterial Blood HCO3 23 mmol/L (21-28) Arterial Blood Base Excess 2 mmol/L (-3-3) FiO2 50/vm Urine Collection Type Void Urine Color [place] Urine Clarity Clear Urine pH 6.5 (<5.0-8.0) Urine Specific [place] >=1.030 (1.000-1.030) Urine Protein 100 mg/dL (NEG-TRACE) Urine Glucose (UA) Negative mg/dL (NEG) Urine Ketones (Stick) Negative mg/dL (NEG) Urine Blood Negative (NEG) Urine Nitrite Negative (NEG) Urine Bilirubin Small (NEG) Urine Urobilinogen Dipstick 4.0 mg/dL (0.2 mg/dL) Urine Leukocyte Esterase Negative (NEG) Urine RBC 1-2 /HPF (0-2) Urine WBC 5-10 /HPF (0-4) Urine Squamous Epithelial Cells Occ /LPF Urine Bacteria Few /HPF (0-FEW) Urine Mucus Slight /LPF Test 05/07/20 06:41 White Blood Count 11.5 x10^3/uL (4.0-11.0) Red Blood Count 4.64 x10^6/uL (4.30-5.70) Hemoglobin 13.0 g/dL (13.0-17.5) Hematocrit 39.0 % (39.0-53.0) Mean Corpuscular Volume 84 fL (79-100) Mean Corpuscular Hemoglobin 28 pg (25-35) Mean Corpuscular Hemoglobin Concent 33 g/dL (31-37) Red Cell Distribution Width 13.5 % (11.5-14.5) Platelet Count 189 x10^3/uL (140-400) Neutrophils (%) (Auto) 91 % (31-73) Lymphocytes (%) (Auto) 5 % (24-48) Monocytes (%) (Auto) 5 % (0-9) Eosinophils (%) (Auto) 0 % (0-3) Basophils (%) (Auto) 0 % (0-3) Neutrophils # (Auto) 10.4 x10^3/uL (1.8-7.7) Lymphocytes # (Auto) 0.5 x10^3/uL (1.0-4.8) Monocytes # (Auto) 0.5 x10^3/uL (0.0-1.1) Eosinophils # (Auto) 0.0 x10^3/uL (0.0-0.7) Basophils # (Auto) 0.0 x10^3/uL (0.0-0.2) Sodium Level 134 mmol/L (136-145) Potassium Level 4.0 mmol/L (3.5-5.1) Chloride Level 97 mmol/L (98-107) Carbon Dioxide Level 29 mmol/L (21-32) Anion Gap 8 (6-14) Blood Urea Nitrogen 15 mg/dL (8-26) Creatinine 0.9 mg/dL (0.7-1.3) Estimated GFR (Cockcroft-Gault) 93.0 BUN/Creatinine Ratio 17 (6-20) Glucose Level 135 mg/dL (70-99) Calcium Level 8.9 mg/dL (8.5-10.1) Total Bilirubin 0.8 mg/dL (0.2-1.0) Aspartate Amino Transf (AST/SGOT) 51 U/L (15-37) Alanine Aminotransferase (ALT/SGPT) 102 U/L (16-63) Alkaline Phosphatase 120 U/L (46-116) Total Protein 6.9 g/dL (6.4-8.2) Albumin 2.7 g/dL (3.4-5.0) Albumin/Globulin Ratio 0.6 (1.0-1.7) Laboratory Tests Test 05/06/20 14:23 05/06/20 15:31 05/06/20 16:00 05/06/20 19:48 White Blood Count 6.9 x10^3/uL (4.0-11.0) Red Blood Count 4.93 x10^6/uL (4.30-5.70) Hemoglobin 14.1 g/dL (13.0-17.5) Hematocrit 40.6 % (39.0-53.0) Mean Corpuscular Volume 83 fL (79-100) Mean Corpuscular Hemoglobin 29 pg (25-35) Mean Corpuscular Hemoglobin Concent 35 g/dL (31-37) Red Cell Distribution Width 13.1 % (11.5-14.5) Platelet Count 166 x10^3/uL (140-400) Neutrophils (%) (Auto) 86 % (31-73) Lymphocytes (%) (Auto) 8 % (24-48) Monocytes (%) (Auto) 6 % (0-9) Eosinophils (%) (Auto) 0 % (0-3) Basophils (%) (Auto) 1 % (0-3) Neutrophils # (Auto) 5.9 x10^3/uL (1.8-7.7) Lymphocytes # (Auto) 0.5 x10^3/uL (1.0-4.8) Monocytes # (Auto) 0.4 x10^3/uL (0.0-1.1) Eosinophils # (Auto) 0.0 x10^3/uL (0.0-0.7) Basophils # (Auto) 0.0 x10^3/uL (0.0-0.2) Segmented Neutrophils % 60 % (35-66) Band Neutrophils % 27 % (0-9) Lymphocytes % 7 % (24-48) Monocytes % 4 % (0-10) Basophils % 1 % (0-3) Metamyelocytes % 1 % (0-0) Platelet Estimate Adequate (ADEQUATE) Large Platelets Present Sodium Level 130 mmol/L (136-145) Potassium Level 3.8 mmol/L (3.5-5.1) Chloride Level 93 mmol/L (98-107) Carbon Dioxide Level 27 mmol/L (21-32) Anion Gap 10 (6-14) Blood Urea Nitrogen 14 mg/dL (8-26) Creatinine 1.1 mg/dL (0.7-1.3) Estimated GFR (Cockcroft-Gault) 73.8 BUN/Creatinine Ratio 13 (6-20) Glucose Level 152 mg/dL (70-99) Lactic Acid Level 1.6 mmol/L (0.4-2.0) Calcium Level 9.0 mg/dL (8.5-10.1) Total Bilirubin 1.2 mg/dL (0.2-1.0) Aspartate Amino Transf (AST/SGOT) 76 U/L (15-37) Alanine Aminotransferase (ALT/SGPT) 127 U/L (16-63) Alkaline Phosphatase 132 U/L (46-116) Creatine Kinase 123 U/L (39-308) Creatine Kinase MB (Mass) 0.7 ng/mL (0.0-3.6) Creatine Kinase MB Relative Index 0.6 % (0-4) Troponin I Quantitative < 0.017 ng/mL (0.000-0.055) HA-Tqz-C-Type Natriuretic Peptide 260 pg/mL (0-124) Total Protein 7.4 g/dL (6.4-8.2) Albumin 3.0 g/dL (3.4-5.0) Albumin/Globulin Ratio 0.7 (1.0-1.7) Influenza Type A Antigen Negative (NEGATIVE) Influenza Type B Antigen Negative (NEGATIVE) O2 Saturation 95 % (92-99) Arterial Blood pH 7.56 (7.35-7.45) Arterial Blood pH (Temp corrected) 7.52 Arterial Blood pCO2 at Patient Temp 26 mmHg (35-46) Arterial Blood pCO2 (Temp correct) 29 mmHg Arterial Blood pO2 at Patient Temp 67 mmHg (75-108) Arterial Blood pO2 (Temp corrected) 80 mmHg Arterial Blood HCO3 23 mmol/L (21-28) Arterial Blood Base Excess 2 mmol/L (-3-3) FiO2 50/vm Urine Collection Type Void Urine Color [place] Urine Clarity Clear Urine pH 6.5 (<5.0-8.0) Urine Specific [place] >=1.030 (1.000-1.030) Urine Protein 100 mg/dL (NEG-TRACE) Urine Glucose (UA) Negative mg/dL (NEG) Urine Ketones (Stick) Negative mg/dL (NEG) Urine Blood Negative (NEG) Urine Nitrite Negative (NEG) Urine Bilirubin Small (NEG) Urine Urobilinogen Dipstick 4.0 mg/dL (0.2 mg/dL) Urine Leukocyte Esterase Negative (NEG) Urine RBC 1-2 /HPF (0-2) Urine WBC 5-10 /HPF (0-4) Urine Squamous Epithelial Cells Occ /LPF Urine Bacteria Few /HPF (0-FEW) Urine Mucus Slight /LPF Test 05/07/20 06:41 White Blood Count 11.5 x10^3/uL (4.0-11.0) Red Blood Count 4.64 x10^6/uL (4.30-5.70) Hemoglobin 13.0 g/dL (13.0-17.5) Hematocrit 39.0 % (39.0-53.0) Mean Corpuscular Volume 84 fL (79-100) Mean Corpuscular Hemoglobin 28 pg (25-35) Mean Corpuscular Hemoglobin Concent 33 g/dL (31-37) Red Cell Distribution Width 13.5 % (11.5-14.5) Platelet Count 189 x10^3/uL (140-400) Neutrophils (%) (Auto) 91 % (31-73) Lymphocytes (%) (Auto) 5 % (24-48) Monocytes (%) (Auto) 5 % (0-9) Eosinophils (%) (Auto) 0 % (0-3) Basophils (%) (Auto) 0 % (0-3) Neutrophils # (Auto) 10.4 x10^3/uL (1.8-7.7) Lymphocytes # (Auto) 0.5 x10^3/uL (1.0-4.8) Monocytes # (Auto) 0.5 x10^3/uL (0.0-1.1) Eosinophils # (Auto) 0.0 x10^3/uL (0.0-0.7) Basophils # (Auto) 0.0 x10^3/uL (0.0-0.2) Sodium Level 134 mmol/L (136-145) Potassium Level 4.0 mmol/L (3.5-5.1) Chloride Level 97 mmol/L (98-107) Carbon Dioxide Level 29 mmol/L (21-32) Anion Gap 8 (6-14) Blood Urea Nitrogen 15 mg/dL (8-26) Creatinine 0.9 mg/dL (0.7-1.3) Estimated GFR (Cockcroft-Gault) 93.0 BUN/Creatinine Ratio 17 (6-20) Glucose Level 135 mg/dL (70-99) Calcium Level 8.9 mg/dL (8.5-10.1) Total Bilirubin 0.8 mg/dL (0.2-1.0) Aspartate Amino Transf (AST/SGOT) 51 U/L (15-37) Alanine Aminotransferase (ALT/SGPT) 102 U/L (16-63) Alkaline Phosphatase 120 U/L (46-116) Total Protein 6.9 g/dL (6.4-8.2) Albumin 2.7 g/dL (3.4-5.0) Albumin/Globulin Ratio 0.6 (1.0-1.7) Impression . Full note dictated, respiratory failure secondary to COVID-19 viral pneumonia Not a candidate for remdesivir secondary to elevated liver chemistries Monitor closely, switch over to Vapotherm, possibly BiPAP if no improvement may require intubation. ADDISON LONDON MD May 07, 2020 10:05
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
--- NOTE | 2020-05-07 10:14 | RAD ---
Plain film abdominal examination consisting of 2 view(s) of the abdomen. History: Abdominal distention Comparison: None. There is no bowel dilation. Gas is seen in the rectum, and the bowel gas pattern is non-obstructive. No organomegaly or abnormal calcifications are seen. The bony structures are unremarkable in appearance. Impression: 1. Unremarkable exam of the abdomen. Electronically signed by: Babatunde Villanueva MD (05/07/2020 10:12 AM) [id number]
[2020-05-07] MEDS ORDERED: THIAMINE INJ 100 MG, FOLIC ACID INJ 1 MG in IV NORMAL SALINE 1000ML BAG 1,000 ML IV ONE (10:15)
[2020-05-07] MEDS: AZITHROMYCIN 500 MG in IV NORMAL SALINE 250ML 250 ML IV SCH (10:30)
--- NOTE | 2020-05-07 10:55 | CONS ---
DATE OF CONSULTATION: 05/07/2020 ATTENDING PHYSICIAN: Tato Louie MD CONSULTING PHYSICIAN: Addison London MD REASON FOR CONSULTATION: The patient is seen in pulmonary consultation at the request of Dr. Louie for respiratory failure secondary to COVID-19 viral pneumonia. HISTORY OF PRESENT ILLNESS: The patient is a 40-year-old that apparently tested positive this week, Monday, 5 days ago, presented with increasing shortness of breath. He is now requiring nonrebreather of 100%. He has a cough, mostly nonproductive, some chest tightness. The patient has a prior history of pneumonia and hypertension, currently smokes. PAST MEDICAL HISTORY: Hypertension, previous pneumonia, tobacco dependent. PAST SURGICAL HISTORY: Knee surgery. SOCIAL HISTORY: He continues to smoke, occasional use of alcohol. Drinks lots of energy drinks. REVIEW OF SYSTEMS: As indicated above, otherwise, a 10-point system was reviewed and negative. PHYSICAL EXAMINATION: GENERAL: The patient was seen during the COVID-19 viral pandemic. He was in the intensive care unit on nonrebreather. He appeared to be ill. He had increased respiratory rate, but was able to complete full sentences. Otherwise, no paroxysmal breathing pattern. EXTREMITIES: No significant edema. Mild erythematous rash. LABORATORY DATA: Arterial blood gas; pH of 7.52, PaCO2 of 26, PaO2 of 67 on a Venturi mask at 50%. White count was normal. He had a lymphopenia. Electrolytes were noted. BUN and creatinine were normal. His liver chemistries were elevated. Albumin was 3.0. Chest x-ray was reviewed. CT angiogram was likewise reviewed. No evidence of PE. There was extensive ground-glass opacities. IMPRESSION: 1. Acute respiratory failure secondary to COVID-19 viral pneumonia. 2. COVID-19 viral pneumonia. 3. Possible bacterial pneumonia. 4. Hypertension. 5. Obesity. 6. Tobacco dependent. 7. Elevated liver chemistries. PLAN: 1. Continue support with oxygen supplementation. 2. The patient is not a candidate for remdesivir for 2 reasons. One, his LFTs are elevated, secondly he is already approximately 7 days out. 3. Continue DVT prophylaxis. 4. Steroids. 5. Empiric antibiotics. 6. Monitor LFTs. 7. Case discussed with RN, the patient is having increased work of breathing. We will switch over to Vapotherm. If needed, switch to noninvasive ventilation with BiPAP. ADDISON LONDON MD DR: CRYS/jay jay JOB#: [id number] / [id number]
[2020-05-07] MEDS ORDERED: STERILE WATER for RESP 1,000 ML BAG. INH PRN (12:15)
[2020-05-07] MEDS: IV NORMAL SALINE 1000ML BAG 1,000 ML IV SCH (12:44)
[2020-05-07] MEDS: ENOXAPARIN 40 MG/0.4 ML SYRINGE. SQ SCH ×2 (12:53→21:03)
--- NOTE | 2020-05-07 15:26 | NUR ---
SS following for discharge planning. SS reviewed pt chart and discussed with pt RN. Pt is from home with spouse and is currently on non-rebreather and Vapotherm. COVID19 positive. Pt on IV Azithromycin and IV Rocephin. Pt is listed as self pay but pt's spouse is stating that pt has [employer] insurance through his employment. Case management notified. SS will continue to follow for discharge planning.
[2020-05-07] MEDS: cefTRIAXone IV Push 1 GM VIAL. IVP SCH (17:25)
[2020-05-07] MEDS: LACTOBACILLUS RHAMNOSUS GG 1 CAPSULE. PO SCH (21:04)
[2020-05-08] VITALS (32 sets, daily range): BP systolic 74–200; BP diastolic 40–107
[2020-05-08] MEDS: IV NORMAL SALINE 1000ML BAG 1,000 ML IV SCH ×3 (00:37→22:21)
[2020-05-08] MEDS: guaiFENesin ORAL 200 MG/10 ML LIQUID. PO PRN (00:37)
[2020-05-08] MEDS: ACETAMINOPHEN 325 MG TABLET. PO PRN ×2 (01:14→10:26)
--- NOTE | 2020-05-08 06:20 | NUR ---
Patient agitated throughout shift. Refused bladder scan. Stated to patient that he has not urinated for the past several hours and advised it would not be safe to stand. Acknowledged and still refused and said he can only urinate if he stands. Several minutes later called back to use commode for bowl movement. Required 2 person to assist back to bed. Approximately 0500h patient rattled his rails and thew a pillow at the door. Stated he could not find his call button because he could not breath and was unable to get his "air". Requested to be intubated. Advised ativan to help him relax. Agreed. Ativan given with some relief in agitation. Will continue to monitor.
[2020-05-08] MEDS ORDERED: fentaNYL PF VIAL 100 MCG/2 ML VIAL IV PRN (06:45)
[2020-05-08] MEDS: DEXMEDETOMIDINE 400 MCG in IV NORMAL SALINE 100ML 96 ML IV PRN ×2 (06:50→15:13)
[2020-05-08] MEDS ORDERED: PROPOFOL 100 ML IV ONE (07:19)
[2020-05-08] MEDS ORDERED: SUCCINYLCHOLINE 200 MG/10 ML VIAL. ONE (07:19)
[2020-05-08] MEDS ORDERED: PROPOFOL 100 ML IV PRN (07:45)
[2020-05-08] MEDS ORDERED: VECURONIUM BOLUS 10 MG VIAL. IV ONE ×3 (08:21→10:45)
[2020-05-08] MEDS: FAMOTIDINE 20 MG TABLET. PO SCH ×2 (09:00→22:20)
[2020-05-08] MEDS: ISOSORBIDE MONONITRATE ER 30 MG TAB.ER.24H PO SCH (09:00)
[2020-05-08] MEDS: amLODIPine BESYLATE 10 MG TABLET PO SCH (09:00)
[2020-05-08 09:31] LABS: BASE EXCESS ABG -1 mmol/L (-3-3); CORRECTED PCO2 ABG 43 mmHg; CORRECTED PH ABG 7.37; CORRECTED PO2 ABG 60 mmHg; HCO3 ABG 24 mmol/L (21-28); PCO2 ABG 39 mmHg (35-46); PO2 ABG 52 mmHg (75-108); SAT O2 ABG 85 % (92-99)
[2020-05-08 09:34] LABS: FIO2 ABG 100
--- NOTE | 2020-05-08 09:43 | RAD ---
EXAM: Chest, single view; abdomen, single view. HISTORY: Orogastric tube placement. COMPARISON: 05/07/2020 FINDINGS: A frontal view the chest and frontal view of the upper abdomen are obtained. There is left greater than right central predominant partially consolidated infiltrate superimposed on diffuse inte rstitial infiltrate. There are suspected small pleural effusions. There is no pneumothorax. There is a stable cardiac silhouette. There is an endotracheal tube within the mid trachea. There is a nasogas tric tube within the proximal stomach. There are prominent air-filled loops of bowel throughout the v isualized upper abdomen. No free air is seen. There is a right internal jugular catheter with the tip in the superior cavoatrial junction. IMPRESSION: 1. Nasogastric tube within the proximal stomach. There are prominent air-filled bowel throughout the visualized upper abdomen which are similar compared to the prior study. 2. Increase in partially consolidated left greater the right lung infiltrate superimposed on diffuse interstitial and alveolar infiltrate. Electronically signed by: Portia Mclaughlin MD (05/08/2020 9:41 AM) [facility]
--- NOTE | 2020-05-08 09:53 | PDOC ---
PROGRESS NOTES Date of Service: DATE: 05/08/20 TIME: 09:53 Chief Complaint Chief Complaint VTE Prophylaxis Ordered VTE Prophylaxis Devices: Yes VTE Pharmacological Prophylaxi: Yes Assessment/Plan Assessment/Plan Impression: Primary Impression: Fever secondary to viremia , sepsis Transaminitis Hyponatremia Acute hypoxic respiratory failure Extensive infiltrates throughout BILATERAL lung lord, concerning for covid/ SARS morbid obesity dvt prophylaxis, lovenox tobacco abuse disorder uncontrolled hypertension Intubated 2/2 respiratory decompensation Fever and tachycardia vent 100% and PEEP of 12 prominent air-filled bowel throughout the visualized upper abdomen which are similar compared to the prior study. plan admit blood cultures icu bed emperic iv antibiotics consult pulmonary follow lytes gi prophylaxis iv labetalol 5-10mg q 3 hrs prn bp support iv decadron 6 mg bid pepsid 20mg po bid zinc 220mg po daily, vitamin c, vitamin D SPUTUM CULTURE ID CONSULT IV ZOSYN 41 min cc time History of Present Illness History of Present Illness Identification/Chief Complaint Chief Complaint seen in er with acute resp distress, known COVID POSITIVE 40-year-old male who arrives ambulatory to the emergency department complaining progressive difficulty breathing., breathing today has become considerably more labored than it has in the past 2 days. Patient reports on 05-04 he was diagnosed with coronavirus. TEMP on arrival 103.2 F abg c/w resp alkalosis and hypoxia he has become progressively more short of breath and states he has mild chest tightness. HYPOXIC, alert and ill-appearing. Past Medical History Past Medical History Past Medical History Past Medical History Past Medical History: Hypertension, Pneumonia Past Surgical History: Other Additional Past Surgical Histo: KNEE SURGERY, BROKEN RIGHT ARM WITH SURGERY Smoking Status: Current Some Day Smoker Alcohol Use: Occasionally FHX COPD, OBESITY Family History Family History: Hypertension Social History Smoke: <1 pack per day ALCOHOL: none Drugs: None Current Problem List Problem List Problems Medical Problems: (1) COVID-19 Status: Acute (2) Respiratory failure Status: Acute Vitals Vitals Vital Signs Date Time Temp Pulse Resp B/P (MAP) Pulse Ox O2 Delivery O2 Flow Rate FiO2 05/08/20 09:30 101.5 118 30 108/53 (71) 85 Ventilator 101.5 05/08/20 07:00 40.0 Physical Exam Physical Exam Constitutional: SEDATED ON VENT[] HENT: Normocephalic, atraumatic, bilateral external ears normal, oropharynx moist, no oral exudates, nose normal. [] Eyes: PERRLA, EOMI, conjunctiva normal, no discharge. [] Neck: Normal range of motion, no tenderness, supple, no stridor. [] Cardiovascular: Tachycardia. no murmur [] Lungs & Thorax: tachypnea , crackles , bilaterally. Abdomen: Bowel sounds normal, soft, no tenderness, no masses, no pulsatile masses. [] Skin: Warm, dry, no erythema, no rash. [] Back: No tenderness, no CVA tenderness. [] Extremities: No tenderness, no cyanosis, no clubbing, ROM intact, no edema. [] Neurologic: Alert and oriented X 3, normal motor function, normal sensory function, no focal deficits noted. [] Heart: RRR, no gallops, no murmurs Breasts: Not examined Abdomen: Soft, No tenderness Rectal Exam: not examined PELVIC: Examination not indicated Extremities: No cyanosis Neuro: Cranial nerves 3-12 NL General: No acute distress Heart: Regular rate (SR), Other (distant heart sounds) Abdomen: Other (distended and firm) Extremities: No clubbing, No cyanosis, Other (trace LE edema) Skin: No breakdown, No significant lesion Labs LABS Procedure Result URINE CULTURE Final Final No Growth on 05/08/20 at 0821 Testing Performed by: [address] [address] For Inquires, the Physician may contact the Microbiology department at [phone] Unless otherwise specified, Testing Performed by: [address] [id number] For Inquires, the Physician may contact the Microbiology department at [phone] EXAM: Chest, single view; abdomen, single view. HISTORY: Orogastric tube placement. COMPARISON: 05/07/2020 FINDINGS: A frontal view the chest and frontal view of the upper abdomen are obtained. There is left greater than right central predominant partially consolidated infiltrate superimposed on diffuse interstitial infiltrate. There a re suspected small pleural effusions. There is no pneumothorax. There is a stable cardiac silhouette. There is an endotracheal tube within the mid trachea. There is a nasogastric tube within the proximal stomach. There are prominent air-filled loops of bowel throughout the visualized upper abdomen. No free air is seen. There is a right internal jugular catheter with the tip in the superior cavoatrial junction. IMPRESSION: 1. Nasogastric tube within the proximal stomach. There are prominent air-filled bowel throughout the visualized upper abdomen which are similar compared to the prior study. 2. Increase in partially consolidated left greater the right lung infiltrate superimposed on diffuse interstitial and alveolar infiltrate. Electronically signed by: Portia Mclaughlin MD (05/08/2020 9:41 AM) [facility] DICTATED and SIGNED BY: PORTIA MCLAUGHLIN MD Laboratory Tests Test 05/08/20 09:29 O2 Saturation 85 % (92-99) Arterial Blood pH 7.40 (7.35-7.45) Arterial Blood pH (Temp corrected) 7.37 Arterial Blood pCO2 at Patient Temp 39 mmHg (35-46) Arterial Blood pCO2 (Temp correct) 43 mmHg Arterial Blood pO2 at Patient Temp 52 mmHg (75-108) Arterial Blood pO2 (Temp corrected) 60 mmHg Arterial Blood HCO3 24 mmol/L (21-28) Arterial Blood Base Excess -1 mmol/L (-3-3) FiO2 100 Assessment and Plan Assessmemt and Plan Problems Medical Problems: (1) COVID-19 Status: Acute (2) Hyponatremia Status: Acute (3) Respiratory failure Status: Acute (4) Transaminitis Status: Acute Comment Review of Relevant I have reviewed the following items kush (where applicable) has been applied. Labs Laboratory Tests Test 05/06/20 14:23 05/06/20 15:31 05/06/20 16:00 05/06/20 19:48 White Blood Count 6.9 x10^3/uL (4.0-11.0) Red Blood Count 4.93 x10^6/uL (4.30-5.70) Hemoglobin 14.1 g/dL (13.0-17.5) Hematocrit 40.6 % (39.0-53.0) Mean Corpuscular Volume 83 fL (79-100) Mean Corpuscular Hemoglobin 29 pg (25-35) Mean Corpuscular Hemoglobin Concent 35 g/dL (31-37) Red Cell Distribution Width 13.1 % (11.5-14.5) Platelet Count 166 x10^3/uL (140-400) Neutrophils (%) (Auto) 86 % (31-73) Lymphocytes (%) (Auto) 8 % (24-48) Monocytes (%) (Auto) 6 % (0-9) Eosinophils (%) (Auto) 0 % (0-3) Basophils (%) (Auto) 1 % (0-3) Neutrophils # (Auto) 5.9 x10^3/uL (1.8-7.7) Lymphocytes # (Auto) 0.5 x10^3/uL (1.0-4.8) Monocytes # (Auto) 0.4 x10^3/uL (0.0-1.1) Eosinophils # (Auto) 0.0 x10^3/uL (0.0-0.7) Basophils # (Auto) 0.0 x10^3/uL (0.0-0.2) Segmented Neutrophils % 60 % (35-66) Band Neutrophils % 27 % (0-9) Lymphocytes % 7 % (24-48) Monocytes % 4 % (0-10) Basophils % 1 % (0-3) Metamyelocytes % 1 % (0-0) Platelet Estimate Adequate (ADEQUATE) Large Platelets Present Sodium Level 130 mmol/L (136-145) Potassium Level 3.8 mmol/L (3.5-5.1) Chloride Level 93 mmol/L (98-107) Carbon Dioxide Level 27 mmol/L (21-32) Anion Gap 10 (6-14) Blood Urea Nitrogen 14 mg/dL (8-26) Creatinine 1.1 mg/dL (0.7-1.3) Estimated GFR (Cockcroft-Gault) 73.8 BUN/Creatinine Ratio 13 (6-20) Glucose Level 152 mg/dL (70-99) Lactic Acid Level 1.6 mmol/L (0.4-2.0) Calcium Level 9.0 mg/dL (8.5-10.1) Total Bilirubin 1.2 mg/dL (0.2-1.0) Aspartate Amino Transf (AST/SGOT) 76 U/L (15-37) Alanine Aminotransferase (ALT/SGPT) 127 U/L (16-63) Alkaline Phosphatase 132 U/L (46-116) Creatine Kinase 123 U/L (39-308) Creatine Kinase MB (Mass) 0.7 ng/mL (0.0-3.6) Creatine Kinase MB Relative Index 0.6 % (0-4) Troponin I Quantitative < 0.017 ng/mL (0.000-0.055) CP-Dvp-P-Type Natriuretic Peptide 260 pg/mL (0-124) Total Protein 7.4 g/dL (6.4-8.2) Albumin 3.0 g/dL (3.4-5.0) Albumin/Globulin Ratio 0.7 (1.0-1.7) Influenza Type A Antigen Negative (NEGATIVE) Influenza Type B Antigen Negative (NEGATIVE) O2 Saturation 95 % (92-99) Arterial Blood pH 7.56 (7.35-7.45) Arterial Blood pH (Temp corrected) 7.52 Arterial Blood pCO2 at Patient Temp 26 mmHg (35-46) Arterial Blood pCO2 (Temp correct) 29 mmHg Arterial Blood pO2 at Patient Temp 67 mmHg (75-108) Arterial Blood pO2 (Temp corrected) 80 mmHg Arterial Blood HCO3 23 mmol/L (21-28) Arterial Blood Base Excess 2 mmol/L (-3-3) FiO2 50/vm Urine Collection Type Void Urine Color [place] Urine Clarity Clear Urine pH 6.5 (<5.0-8.0) Urine Specific [place] >=1.030 (1.000-1.030) Urine Protein 100 mg/dL (NEG-TRACE) Urine Glucose (UA) Negative mg/dL (NEG) Urine Ketones (Stick) Negative mg/dL (NEG) Urine Blood Negative (NEG) Urine Nitrite Negative (NEG) Urine Bilirubin Small (NEG) Urine Urobilinogen Dipstick 4.0 mg/dL (0.2 mg/dL) Urine Leukocyte Esterase Negative (NEG) Urine RBC 1-2 /HPF (0-2) Urine WBC 5-10 /HPF (0-4) Urine Squamous Epithelial Cells Occ /LPF Urine Bacteria Few /HPF (0-FEW) Urine Mucus Slight /LPF Test 05/07/20 06:41 05/08/20 09:29 White Blood Count 11.5 x10^3/uL (4.0-11.0) Red Blood Count 4.64 x10^6/uL (4.30-5.70) Hemoglobin 13.0 g/dL (13.0-17.5) Hematocrit 39.0 % (39.0-53.0) Mean Corpuscular Volume 84 fL (79-100) Mean Corpuscular Hemoglobin 28 pg (25-35) Mean Corpuscular Hemoglobin Concent 33 g/dL (31-37) Red Cell Distribution Width 13.5 % (11.5-14.5) Platelet Count 189 x10^3/uL (140-400) Neutrophils (%) (Auto) 91 % (31-73) Lymphocytes (%) (Auto) 5 % (24-48) Monocytes (%) (Auto) 5 % (0-9) Eosinophils (%) (Auto) 0 % (0-3) Basophils (%) (Auto) 0 % (0-3) Neutrophils # (Auto) 10.4 x10^3/uL (1.8-7.7) Lymphocytes # (Auto) 0.5 x10^3/uL (1.0-4.8) Monocytes # (Auto) 0.5 x10^3/uL (0.0-1.1) Eosinophils # (Auto) 0.0 x10^3/uL (0.0-0.7) Basophils # (Auto) 0.0 x10^3/uL (0.0-0.2) Sodium Level 134 mmol/L (136-145) Potassium Level 4.0 mmol/L (3.5-5.1) Chloride Level 97 mmol/L (98-107) Carbon Dioxide Level 29 mmol/L (21-32) Anion Gap 8 (6-14) Blood Urea Nitrogen 15 mg/dL (8-26) Creatinine 0.9 mg/dL (0.7-1.3) Estimated GFR (Cockcroft-Gault) 93.0 BUN/Creatinine Ratio 17 (6-20) Glucose Level 135 mg/dL (70-99) Calcium Level 8.9 mg/dL (8.5-10.1) Total Bilirubin 0.8 mg/dL (0.2-1.0) Aspartate Amino Transf (AST/SGOT) 51 U/L (15-37) Alanine Aminotransferase (ALT/SGPT) 102 U/L (16-63) Alkaline Phosphatase 120 U/L (46-116) Total Protein 6.9 g/dL (6.4-8.2) Albumin 2.7 g/dL (3.4-5.0) Albumin/Globulin Ratio 0.6 (1.0-1.7) Thyroid Stimulating Hormone (TSH) 0.306 uIU/mL (0.358-3.74) O2 Saturation 85 % (92-99) Arterial Blood pH 7.40 (7.35-7.45) Arterial Blood pH (Temp corrected) 7.37 Arterial Blood pCO2 at Patient Temp 39 mmHg (35-46) Arterial Blood pCO2 (Temp correct) 43 mmHg Arterial Blood pO2 at Patient Temp 52 mmHg (75-108) Arterial Blood pO2 (Temp corrected) 60 mmHg Arterial Blood HCO3 24 mmol/L (21-28) Arterial Blood Base Excess -1 mmol/L (-3-3) FiO2 100 Laboratory Tests Test 05/08/20 09:29 O2 Saturation 85 % (92-99) Arterial Blood pH 7.40 (7.35-7.45) Arterial Blood pH (Temp corrected) 7.37 Arterial Blood pCO2 at Patient Temp 39 mmHg (35-46) Arterial Blood pCO2 (Temp correct) 43 mmHg Arterial Blood pO2 at Patient Temp 52 mmHg (75-108) Arterial Blood pO2 (Temp corrected) 60 mmHg Arterial Blood HCO3 24 mmol/L (21-28) Arterial Blood Base Excess -1 mmol/L (-3-3) FiO2 100 Microbiology 05/06/20 Urine Culture - Final, Complete 05/06/20 Blood Culture - Preliminary, Resulted NO GROWTH AFTER 1 DAY Medications Current Medications Levofloxacin/ Dextrose 150 ml @ 100 mls/hr 1X ONCE IV Last administered on 05/06/20at 15:25; Start 05/06/20 at 15:00; Stop 05/06/20 at 16:29; Status DC Methylprednisolone Sodium Succinate (SOLU-Medrol 125MG VIAL) 125 mg 1X ONCE IV Last administered on 05/06/20at 15:24; Start 05/06/20 at 15:00; Stop 05/06/20 at 15:01; Status DC Sodium Chloride 1,000 ml @ 1,000 mls/hr 1X ONCE IV Last administered on 05/06/20at 15:25; Start 05/06/20 at 15:00; Stop 05/06/20 at 15:59; Status DC Acetaminophen (Tylenol) 1,000 mg 1X ONCE PO Last administered on 05/06/20at 16:21; Start 05/06/20 at 16:15; Stop 05/06/20 at 16:16; Status DC Dexamethasone Sodium Phosphate (Decadron) 6 mg BID IVP Last administered on 05/07/20at 08:41; Start 05/06/20 at 21:00; Stop 05/07/20 at 10:06; Status DC Ceftriaxone Sodium (Rocephin) 1 gm Q24H IVP Last administered on 05/07/20at 17:25; Start 05/06/20 at 17:00 Azithromycin 250 ml @ 250 mls/hr 1X ONCE IV ; Start 05/06/20 at 16:30; Stop 05/06/20 at 17:29; Status Cancel Ceftriaxone Sodium (Rocephin) 1 gm DAILY08 IVP ; Start 05/07/20 at 08:00; Status UNV Sodium Chloride (Normal Saline Flush) 3 ml QSHIFT PRN IV AFTER MEDS AND BLOOD DRAWS; Start 05/06/20 at 16:30 Sodium Chloride 1,000 ml @ 100 mls/hr Q10H IV Last administered on 05/08/20at 00:37; Start 05/06/20 at 16:30 Ondansetron HCl (Zofran) 4 mg PRN Q4HRS PRN IV NAUSEA/VOMITING; Start 05/06/20 at 16:30 Acetaminophen (Tylenol) 650 mg PRN Q4HRS PRN PO TEMP OVER 100.4F OR MILD PAIN Last administered on 05/08/20at 01:14; Start 05/06/20 at 16:30 Al Hydroxide/Mg Hydroxide (Mylanta Plus Xs) 30 ml PRN DAILY PRN PO HEARTBURN / GAS; Start 05/06/20 at 16:30 Clonidine HCl (Catapres) 0.1 mg PRN Q6HRS PRN PO SBP>160 OR DBP>90 Last administered on 05/07/20at 21:03; Start 05/06/20 at 16:30 Sodium Monofluorophosphate (Fleet Adult) 133 ml PRN DAILY PRN IA CONSTIPATION; Start 05/06/20 at 16:30 Docusate Sodium (Colace) 100 mg PRN BID PRN PO HARD STOOLS; Start 05/06/20 at 16:30 Albuterol Sulfate (Ventolin Neb Soln) 2.5 mg PRN Q4HRS PRN NEB SHORTNESS OF BREATH; Start 05/06/20 at 16:30 Guaifenesin (Robitussin) 200 mg PRN Q4HRS PRN PO COUGH Last administered on 05/08/20at 00:37; Start 05/06/20 at 16:30 Lorazepam (Ativan) 0.5 mg PRN Q4HRS PRN PO ANXIETY / AGITATION Last administered on 05/07/20at 05:09; Start 05/06/20 at 16:30; Stop 05/07/20 at 15:15; Status DC Enoxaparin Sodium (Lovenox 40mg Syringe) 40 mg Q24H SQ Last administered on 05/06/20at 17:29; Start 05/06/20 at 17:00; Stop 05/07/20 at 10:20; Status DC Azithromycin 500 mg/Sodium Chloride 250 ml @ 250 mls/hr Q24H IV Last administered on 05/07/20at 10:30; Start 05/07/20 at 09:00 Iohexol (Omnipaque 350 Mg/ml) 100 ml 1X ONCE IV Last administered on 05/06/20at 17:04; Start 05/06/20 at 16:45; Stop 05/06/20 at 16:46; Status DC Info (CONTRAST GIVEN -- Rx MONITORING) 1 each PRN DAILY PRN MC SEE COMMENTS; Start 05/06/20 at 16:45; Stop 05/08/20 at 16:44 Dexamethasone Sodium Phosphate (Decadron) 6 mg BID IVP ; Start 05/07/20 at 09:00; Status UNV Ascorbic Acid (Vitamin C) 500 mg DAILY PO Last administered on 05/07/20at 08:42; Start 05/07/20 at 09:00 Famotidine (Pepcid) 20 mg BID PO Last administered on 05/07/20at 21:04; Start 05/07/20 at 09:00 Vitamin D (Vitamin D3) 2,000 unit DAILY PO Last administered on 05/07/20at 08:42; Start 05/07/20 at 09:00 Zinc Sulfate (Orazinc) 220 mg DAILY PO Last administered on 05/07/20at 08:42; Start 05/07/20 at 09:00 Labetalol HCl (Normodyne Iv Push) 10 mg PRN Q3HRS PRN IVP HYPERTENSION Last administered on 05/07/20at 18:13; Start 05/07/20 at 08:30 Amlodipine Besylate (Norvasc) 10 mg DAILY PO ; Start 05/07/20 at 09:00 Isosorbide Mononitrate (Imdur) 60 mg DAILY PO ; Start 05/07/20 at 09:00 Dexamethasone Sodium Phosphate (Decadron) 6 mg DAILY IVP ; Start 05/08/20 at 09:00 Thiamine HCl 100 mg/Folic Acid 1 mg/Sodium Chloride 1,001.2 ml @ 990.198 mls/hr 1X ONCE IV Last administered on 05/07/20at 12:44; Start 05/07/20 at 10:15; Stop 05/07/20 at 11:15; Status DC Enoxaparin Sodium (Lovenox 40mg Syringe) 40 mg BID SQ Last administered on 05/07/20at 21:03; Start 05/07/20 at 11:00 Lactobacillus Rhamnosus (Culturelle) 1 cap BID PO Last administered on 05/07/20at 21:04; Start 05/07/20 at 21:00 Sterile Water (WATER for RESP) 1,000 ml CONT PRN INH VIA VAPOTHERM DEVICE Last administered on 05/07/20at 21:05; Start 05/07/20 at 12:15 Lorazepam (Ativan Inj) 0.5 mg PRN Q4HRS PRN IVP ANXIETY / AGITATION Last administered on 05/08/20at 01:14; Start 05/07/20 at 15:15 Dexmedetomidine HCl 400 mcg/ Sodium Chloride 100 ml @ 0 mls/hr CONT PRN IV PER PROTOCOL Last administered on 05/08/20at 06:50; Start 05/08/20 at 06:45 Fentanyl Citrate (Fentanyl 2ml Vial) 25 mcg PRN Q1HR PRN IV SEVERE PAIN 7-10; Start 05/08/20 at 06:45 Propofol 100 ml @ As Directed STK-MED ONCE IV ; Start 05/08/20 at 07:19; Stop 05/08/20 at 07:19; Status DC Succinylcholine Chloride (Anectine) 200 mg STK-MED ONCE .ROUTE ; Start 05/08/20 at 07:19; Stop 05/08/20 at 07:20; Status DC Fentanyl Citrate 30 ml @ 0 mls/hr CONT PRN IV SEE PROTOCOL; Start 05/08/20 at 07:45 Propofol 100 ml @ 0 mls/hr CONT PRN IV PER PROTOCOL; Start 05/08/20 at 07:45 Chlorhexidine Gluconate (Peridex) 15 ml BID MM ; Start 05/08/20 at 09:00 Midazolam HCl 100 ml @ 0 mls/hr CONT PRN IV SEE PROTOCOL; Start 05/08/20 at 07:45 Vecuronium Redfox (Norcuron Bolus) 10 mg STK-MED ONCE IV ; Start 05/08/20 at 08:21; Stop 05/08/20 at 08:21; Status DC Vitals/I & O Vital Sign - Last 24 Hours 05/07/20 05/07/20 05/07/20 05/07/20 10:00 11:00 11:52 12:00 Temp 98.7 98.7 Pulse 116 108 115 Resp 28 25 23 B/P (MAP) 149/90 (109) 161/76 (104) 140/80 (100) Pulse Ox 80 92 96 86 O2 Delivery Vapotherm Vapotherm Nasal Cannula Vapotherm O2 Flow Rate 30.0 30.0 30.0 30.0 05/07/20 05/07/20 05/07/20 05/07/20 12:00 13:00 14:00 15:00 Pulse 105 109 107 Resp 23 26 26 B/P (MAP) 132/73 (92) 139/80 (99) 124/84 (97) Pulse Ox 96 94 97 O2 Delivery Nasal Cannula Vapotherm Vapotherm Vapotherm O2 Flow Rate 30.0 40.0 40.0 40.0 05/07/20 05/07/20 05/07/20 05/07/20 15:39 16:00 16:00 17:00 Temp 99.0 99.0 Pulse 104 108 Resp 26 25 B/P (MAP) 152/79 (103) 144/88 (106) Pulse Ox 96 94 96 O2 Delivery Nasal Cannula Nasal Cannula Vapotherm Vapotherm O2 Flow Rate 40.0 40.0 40.0 40.0 05/07/20 05/07/20 05/07/20 05/07/20 18:00 18:13 19:00 20:00 Pulse 106 105 112 Resp 25 36 B/P (MAP) 161/99 (119) 161/99 168/90 (116) Pulse Ox 96 90 O2 Delivery Vapotherm Vapotherm Nasal Cannula O2 Flow Rate 40.0 40.0 40.0 05/07/20 05/07/20 05/07/20 05/07/20 20:00 20:27 21:00 21:03 Pulse 18 119 112 Resp 36 36 B/P (MAP) 172/85 (114) 166/85 (112) 168/90 Pulse Ox 90 92 89 O2 Delivery Vapotherm Nasal Cannula Vapotherm O2 Flow Rate 40.0 40.0 40.0 05/07/20 05/07/20 05/07/20 05/07/20 22:00 23:00 23:39 23:59 Pulse 106 100 Resp 36 36 B/P (MAP) 171/80 (110) 127/66 (86) Pulse Ox 90 92 88 O2 Delivery Vapotherm Vapotherm Nasal Cannula Nasal Cannula O2 Flow Rate 40.0 40.0 40.0 40.0 05/08/20 05/08/20 05/08/20 05/08/20 00:01 01:00 02:00 03:00 Temp 101.3 101.3 Pulse 108 109 109 108 Resp 36 36 36 36 B/P (MAP) 156/72 (100) 153/77 (102) 106/61 (76) 119/62 (81) Pulse Ox 90 90 92 88 O2 Delivery Vapotherm Vapotherm Vapotherm Vapotherm O2 Flow Rate 40.0 40.0 40.0 40.0 1/1/21 05/08/20 05/08/20 05/08/20 04:00 04:00 04:08 05:00 Temp 100.6 100.6 Pulse 114 123 Resp 36 36 B/P (MAP) 85/46 (59) 141/62 (88) Pulse Ox 86 86 84 O2 Delivery Vapotherm Nasal Cannula Nasal Cannula Vapotherm O2 Flow Rate 40.0 40.0 40.0 40.0 05/08/20 05/08/20 05/08/20 05/08/20 06:00 07:00 08:15 08:15 Temp 101.4 101.4 Pulse 122 126 132 Resp 36 40 34 B/P (MAP) 145/76 (99) 161/87 (111) 175/84 (114) Pulse Ox 86 85 80 O2 Delivery Vapotherm Vapotherm Ventilator Mechanical Ventilator O2 Flow Rate 40.0 40.0 05/08/20 05/08/20 05/08/20 05/08/20 08:15 08:23 08:38 09:00 Temp 102.2 102.2 Pulse 132 Resp 32 B/P (MAP) 200/107 (138) Pulse Ox 48 79 84 O2 Delivery Ventilator Ventilator Ventilator 05/08/20 09:30 Temp 101.5 101.5 Pulse 118 Resp 30 B/P (MAP) 108/53 (71) Pulse Ox 85 O2 Delivery Ventilator Intake and Output 05/07/20 05/07/20 05/08/20 15:00 23:00 07:00 Intake Total 2700 ml 500 ml Output Total 1302 ml 0 ml Balance 1398 ml 500 ml Justicifation of Admission Dx: Justifications for Admission: Justification of Admission Dx: Yes Comminuty Aquired Pneumonia: Dehydration DONNY FARIA MD May 08, 2020 09:53
[2020-05-08] MEDS: AZITHROMYCIN 500 MG in IV NORMAL SALINE 250ML 250 ML IV SCH (10:22)
[2020-05-08] MEDS: ENOXAPARIN 40 MG/0.4 ML SYRINGE. SQ SCH ×2 (10:25→22:20)
[2020-05-08] MEDS: PANTOPRAZOLE IV PUSH 40 MG VIAL. IVP SCH (10:25)
[2020-05-08] MEDS: DEXAMETHASONE SOD PHOS 4 MG/ML VIAL IVP SCH (10:26)
[2020-05-08] MEDS: LACTOBACILLUS RHAMNOSUS GG 1 CAPSULE. PO SCH ×2 (10:26→22:20)
[2020-05-08] MEDS: CHLORHEXIDINE 0.12% 15 ML MOUTHWASH. MM SCH ×2 (10:26→21:00)
[2020-05-08] MEDS: ASCORBIC ACID 500 MG TABLET PO SCH (10:26)
[2020-05-08] MEDS: CHOLECALCIFEROL (VITAMIN D3) 1,000 UNIT TABLET PO SCH (10:27)
[2020-05-08] MEDS: ZINC SULFATE 220 MG CAPSULE. PO SCH (10:27)
[2020-05-08] MEDS ORDERED: NOREPINEPHRINE VIAL 8 MG in IV DEXTROSE 5% 250 ML IV PRN (10:45)
[2020-05-08] MEDS ORDERED: VECURONIUM BOLUS 10 MG VIAL. IV PRN (10:45)
[2020-05-08] MEDS ORDERED: SUCCINYLCHOLINE 200 MG/10 ML VIAL. IV ONE (10:45)
--- NOTE | 2020-05-08 10:49 | PDOC ---
PULMONARY PROGRESS NOTES DATE: 05/08/20 TIME: 10:43 Subjective Pt. decompensated overnight, in distress on examination Intubated 2/2 respiratory decompensation Fever and tachycardia Now on vent 100% and PEEP of 12 Vitals Vital Signs Date Time Temp Pulse Resp B/P (MAP) Pulse Ox O2 Delivery O2 Flow Rate FiO2 05/08/20 09:30 101.5 118 30 108/53 (71) 85 Ventilator 101.5 05/08/20 07:00 40.0 Comments Pt. seen during pandemic, visual exam preformed Tachy accessory muscle use no rash or edema now intubated Labs Laboratory Tests Test 05/06/20 14:23 05/06/20 15:31 05/06/20 16:00 05/06/20 19:48 White Blood Count 6.9 x10^3/uL (4.0-11.0) Red Blood Count 4.93 x10^6/uL (4.30-5.70) Hemoglobin 14.1 g/dL (13.0-17.5) Hematocrit 40.6 % (39.0-53.0) Mean Corpuscular Volume 83 fL (79-100) Mean Corpuscular Hemoglobin 29 pg (25-35) Mean Corpuscular Hemoglobin Concent 35 g/dL (31-37) Red Cell Distribution Width 13.1 % (11.5-14.5) Platelet Count 166 x10^3/uL (140-400) Neutrophils (%) (Auto) 86 % (31-73) Lymphocytes (%) (Auto) 8 % (24-48) Monocytes (%) (Auto) 6 % (0-9) Eosinophils (%) (Auto) 0 % (0-3) Basophils (%) (Auto) 1 % (0-3) Neutrophils # (Auto) 5.9 x10^3/uL (1.8-7.7) Lymphocytes # (Auto) 0.5 x10^3/uL (1.0-4.8) Monocytes # (Auto) 0.4 x10^3/uL (0.0-1.1) Eosinophils # (Auto) 0.0 x10^3/uL (0.0-0.7) Basophils # (Auto) 0.0 x10^3/uL (0.0-0.2) Segmented Neutrophils % 60 % (35-66) Band Neutrophils % 27 % (0-9) Lymphocytes % 7 % (24-48) Monocytes % 4 % (0-10) Basophils % 1 % (0-3) Metamyelocytes % 1 % (0-0) Platelet Estimate Adequate (ADEQUATE) Large Platelets Present Sodium Level 130 mmol/L (136-145) Potassium Level 3.8 mmol/L (3.5-5.1) Chloride Level 93 mmol/L (98-107) Carbon Dioxide Level 27 mmol/L (21-32) Anion Gap 10 (6-14) Blood Urea Nitrogen 14 mg/dL (8-26) Creatinine 1.1 mg/dL (0.7-1.3) Estimated GFR (Cockcroft-Gault) 73.8 BUN/Creatinine Ratio 13 (6-20) Glucose Level 152 mg/dL (70-99) Lactic Acid Level 1.6 mmol/L (0.4-2.0) Calcium Level 9.0 mg/dL (8.5-10.1) Total Bilirubin 1.2 mg/dL (0.2-1.0) Aspartate Amino Transf (AST/SGOT) 76 U/L (15-37) Alanine Aminotransferase (ALT/SGPT) 127 U/L (16-63) Alkaline Phosphatase 132 U/L (46-116) Creatine Kinase 123 U/L (39-308) Creatine Kinase MB (Mass) 0.7 ng/mL (0.0-3.6) Creatine Kinase MB Relative Index 0.6 % (0-4) Troponin I Quantitative < 0.017 ng/mL (0.000-0.055) [id number]-Type Natriuretic Peptide 260 pg/mL (0-124) Total Protein 7.4 g/dL (6.4-8.2) Albumin 3.0 g/dL (3.4-5.0) Albumin/Globulin Ratio 0.7 (1.0-1.7) Influenza Type A Antigen Negative (NEGATIVE) Influenza Type B Antigen Negative (NEGATIVE) O2 Saturation 95 % (92-99) Arterial Blood pH 7.56 (7.35-7.45) Arterial Blood pH (Temp corrected) 7.52 Arterial Blood pCO2 at Patient Temp 26 mmHg (35-46) Arterial Blood pCO2 (Temp correct) 29 mmHg Arterial Blood pO2 at Patient Temp 67 mmHg (75-108) Arterial Blood pO2 (Temp corrected) 80 mmHg Arterial Blood HCO3 23 mmol/L (21-28) Arterial Blood Base Excess 2 mmol/L (-3-3) FiO2 50/vm Urine Collection Type Void Urine Color [place] Urine Clarity Clear Urine pH 6.5 (<5.0-8.0) Urine Specific [place] >=1.030 (1.000-1.030) Urine Protein 100 mg/dL (NEG-TRACE) Urine Glucose (UA) Negative mg/dL (NEG) Urine Ketones (Stick) Negative mg/dL (NEG) Urine Blood Negative (NEG) Urine Nitrite Negative (NEG) Urine Bilirubin Small (NEG) Urine Urobilinogen Dipstick 4.0 mg/dL (0.2 mg/dL) Urine Leukocyte Esterase Negative (NEG) Urine RBC 1-2 /HPF (0-2) Urine WBC 5-10 /HPF (0-4) Urine Squamous Epithelial Cells Occ /LPF Urine Bacteria Few /HPF (0-FEW) Urine Mucus Slight /LPF Test 05/07/20 06:41 05/08/20 09:29 White Blood Count 11.5 x10^3/uL (4.0-11.0) Red Blood Count 4.64 x10^6/uL (4.30-5.70) Hemoglobin 13.0 g/dL (13.0-17.5) Hematocrit 39.0 % (39.0-53.0) Mean Corpuscular Volume 84 fL (79-100) Mean Corpuscular Hemoglobin 28 pg (25-35) Mean Corpuscular Hemoglobin Concent 33 g/dL (31-37) Red Cell Distribution Width 13.5 % (11.5-14.5) Platelet Count 189 x10^3/uL (140-400) Neutrophils (%) (Auto) 91 % (31-73) Lymphocytes (%) (Auto) 5 % (24-48) Monocytes (%) (Auto) 5 % (0-9) Eosinophils (%) (Auto) 0 % (0-3) Basophils (%) (Auto) 0 % (0-3) Neutrophils # (Auto) 10.4 x10^3/uL (1.8-7.7) Lymphocytes # (Auto) 0.5 x10^3/uL (1.0-4.8) Monocytes # (Auto) 0.5 x10^3/uL (0.0-1.1) Eosinophils # (Auto) 0.0 x10^3/uL (0.0-0.7) Basophils # (Auto) 0.0 x10^3/uL (0.0-0.2) Sodium Level 134 mmol/L (136-145) Potassium Level 4.0 mmol/L (3.5-5.1) Chloride Level 97 mmol/L (98-107) Carbon Dioxide Level 29 mmol/L (21-32) Anion Gap 8 (6-14) Blood Urea Nitrogen 15 mg/dL (8-26) Creatinine 0.9 mg/dL (0.7-1.3) Estimated GFR (Cockcroft-Gault) 93.0 BUN/Creatinine Ratio 17 (6-20) Glucose Level 135 mg/dL (70-99) Calcium Level 8.9 mg/dL (8.5-10.1) Total Bilirubin 0.8 mg/dL (0.2-1.0) Aspartate Amino Transf (AST/SGOT) 51 U/L (15-37) Alanine Aminotransferase (ALT/SGPT) 102 U/L (16-63) Alkaline Phosphatase 120 U/L (46-116) Total Protein 6.9 g/dL (6.4-8.2) Albumin 2.7 g/dL (3.4-5.0) Albumin/Globulin Ratio 0.6 (1.0-1.7) Thyroid Stimulating Hormone (TSH) 0.306 uIU/mL (0.358-3.74) O2 Saturation 85 % (92-99) Arterial Blood pH 7.40 (7.35-7.45) Arterial Blood pH (Temp corrected) 7.37 Arterial Blood pCO2 at Patient Temp 39 mmHg (35-46) Arterial Blood pCO2 (Temp correct) 43 mmHg Arterial Blood pO2 at Patient Temp 52 mmHg (75-108) Arterial Blood pO2 (Temp corrected) 60 mmHg Arterial Blood HCO3 24 mmol/L (21-28) Arterial Blood Base Excess -1 mmol/L (-3-3) FiO2 100 Laboratory Tests Test 05/08/20 09:29 O2 Saturation 85 % (92-99) Arterial Blood pH 7.40 (7.35-7.45) Arterial Blood pH (Temp corrected) 7.37 Arterial Blood pCO2 at Patient Temp 39 mmHg (35-46) Arterial Blood pCO2 (Temp correct) 43 mmHg Arterial Blood pO2 at Patient Temp 52 mmHg (75-108) Arterial Blood pO2 (Temp corrected) 60 mmHg Arterial Blood HCO3 24 mmol/L (21-28) Arterial Blood Base Excess -1 mmol/L (-3-3) FiO2 100 Comments CXR 05/08/20 IMPRESSION: 1. Nasogastric tube within the proximal stomach. There are prominent air-filled bowel throughout the visualized upper abdomen which are similar compared to the prior study. 2. Increase in partially consolidated left greater the right lung infiltrate superimposed on diffuse interstitial and alveolar infiltrate. Impression . IMPRESSION: 1. Acute respiratory failure secondary to COVID-19 viral pneumonia, worsening, now requiring intubation 2. COVID-19 viral pneumonia. 3. Possible bacterial pneumonia. 4. Hypertension. 5. Obesity. 6. Tobacco dependent. 7. Elevated liver chemistries. Plan . PLAN: S/P intubation 05/08/20, now on Fi02 of 100% and PEEP of 12 Follow ABG/CXR, make changes as needed Adequate sedation Symptomatic treatment of fever The patient is not a candidate for remdesivir for 2 reasons. One, his LFTs are elevated, secondly he is already approximately 7 days out. Continue steroids for full 10 day course Continue Empiric ABX on azithro and rocephin Monitor LFTS Follow cardiology recs DVT/GI PPX D/W RN and RT Pt. is FULL CODE Critical care time [id number] ADDISON LONDON MD May 08, 2020 10:49
[2020-05-08] MEDS: MIDAZOLAM 100mg/100ml NS BAG 100 ML IV PRN ×2 (12:15→14:24)
--- NOTE | 2020-05-08 12:31 | PDOC ---
PROGRESS NOTES Date of Service DATE: 05/08/20 TIME: 12:28 Subjective Subjective Patient seen and evaluated Objective Objective Vital Signs Date Time Temp Pulse Resp B/P (MAP) Pulse Ox O2 Delivery O2 Flow Rate FiO2 05/08/20 12: 92 Ventilator 05/08/20 12:00 05/08/20 12:00 101.1 90 30 101.1 05/08/20 07:00 40.0 Intake and Output 05/08/20 07:00 Intake Total 3200 ml Output Total 1302 ml Balance 1898 ml Intake Oral 750 ml IV Total 2450 ml Output Urine Total 1300 ml Stool Total 2 ml Physical Exam Physical Exam Visual exam secondary to Covid status. Assessment Assessment Problems Medical Problems: (1) COVID-19 Status: Acute (2) Hyponatremia Status: Acute (3) Respiratory failure Status: Acute (4) Transaminitis Status: Acute Acute respiratory failure with Covid- 19 Pneumonia. Intubated this morning. Ventilator management as per the pulmonary service. HTN urgency. Now hypotensive. On fluids at this time. We may need to start Levophed. Mild transaminitis Abdominal pain. Evaluation as above. Reactive sinus tachycardia Comment Review of Relevant I have reviewed the following items kush (where applicable) has been applied. Labs Laboratory Tests Test 05/06/20 14:23 05/06/20 15:31 05/06/20 16:00 05/06/20 19:48 White Blood Count 6.9 x10^3/uL (4.0-11.0) Red Blood Count 4.93 x10^6/uL (4.30-5.70) Hemoglobin 14.1 g/dL (13.0-17.5) Hematocrit 40.6 % (39.0-53.0) Mean Corpuscular Volume 83 fL (79-100) Mean Corpuscular Hemoglobin 29 pg (25-35) Mean Corpuscular Hemoglobin Concent 35 g/dL (31-37) Red Cell Distribution Width 13.1 % (11.5-14.5) Platelet Count 166 x10^3/uL (140-400) Neutrophils (%) (Auto) 86 % (31-73) Lymphocytes (%) (Auto) 8 % (24-48) Monocytes (%) (Auto) 6 % (0-9) Eosinophils (%) (Auto) 0 % (0-3) Basophils (%) (Auto) 1 % (0-3) Neutrophils # (Auto) 5.9 x10^3/uL (1.8-7.7) Lymphocytes # (Auto) 0.5 x10^3/uL (1.0-4.8) Monocytes # (Auto) 0.4 x10^3/uL (0.0-1.1) Eosinophils # (Auto) 0.0 x10^3/uL (0.0-0.7) Basophils # (Auto) 0.0 x10^3/uL (0.0-0.2) Segmented Neutrophils % 60 % (35-66) Band Neutrophils % 27 % (0-9) Lymphocytes % 7 % (24-48) Monocytes % 4 % (0-10) Basophils % 1 % (0-3) Metamyelocytes % 1 % (0-0) Platelet Estimate Adequate (ADEQUATE) Large Platelets Present Sodium Level 130 mmol/L (136-145) Potassium Level 3.8 mmol/L (3.5-5.1) Chloride Level 93 mmol/L (98-107) Carbon Dioxide Level 27 mmol/L (21-32) Anion Gap 10 (6-14) Blood Urea Nitrogen 14 mg/dL (8-26) Creatinine 1.1 mg/dL (0.7-1.3) Estimated GFR (Cockcroft-Gault) 73.8 BUN/Creatinine Ratio 13 (6-20) Glucose Level 152 mg/dL (70-99) Lactic Acid Level 1.6 mmol/L (0.4-2.0) Calcium Level 9.0 mg/dL (8.5-10.1) Total Bilirubin 1.2 mg/dL (0.2-1.0) Aspartate Amino Transf (AST/SGOT) 76 U/L (15-37) Alanine Aminotransferase (ALT/SGPT) 127 U/L (16-63) Alkaline Phosphatase 132 U/L (46-116) Creatine Kinase 123 U/L (39-308) Creatine Kinase MB (Mass) 0.7 ng/mL (0.0-3.6) Creatine Kinase MB Relative Index 0.6 % (0-4) Troponin I Quantitative < 0.017 ng/mL (0.000-0.055) [id number]-Type Natriuretic Peptide 260 pg/mL (0-124) Total Protein 7.4 g/dL (6.4-8.2) Albumin 3.0 g/dL (3.4-5.0) Albumin/Globulin Ratio 0.7 (1.0-1.7) Influenza Type A Antigen Negative (NEGATIVE) Influenza Type B Antigen Negative (NEGATIVE) O2 Saturation 95 % (92-99) Arterial Blood pH 7.56 (7.35-7.45) Arterial Blood pH (Temp corrected) 7.52 Arterial Blood pCO2 at Patient Temp 26 mmHg (35-46) Arterial Blood pCO2 (Temp correct) 29 mmHg Arterial Blood pO2 at Patient Temp 67 mmHg (75-108) Arterial Blood pO2 (Temp corrected) 80 mmHg Arterial Blood HCO3 23 mmol/L (21-28) Arterial Blood Base Excess 2 mmol/L (-3-3) FiO2 50/vm Urine Collection Type Void Urine Color [place] Urine Clarity Clear Urine pH 6.5 (<5.0-8.0) Urine Specific [place] >=1.030 (1.000-1.030) Urine Protein 100 mg/dL (NEG-TRACE) Urine Glucose (UA) Negative mg/dL (NEG) Urine Ketones (Stick) Negative mg/dL (NEG) Urine Blood Negative (NEG) Urine Nitrite Negative (NEG) Urine Bilirubin Small (NEG) Urine Urobilinogen Dipstick 4.0 mg/dL (0.2 mg/dL) Urine Leukocyte Esterase Negative (NEG) Urine RBC 1-2 /HPF (0-2) Urine WBC 5-10 /HPF (0-4) Urine Squamous Epithelial Cells Occ /LPF Urine Bacteria Few /HPF (0-FEW) Urine Mucus Slight /LPF Test 05/07/20 06:41 05/08/20 09:29 White Blood Count 11.5 x10^3/uL (4.0-11.0) Red Blood Count 4.64 x10^6/uL (4.30-5.70) Hemoglobin 13.0 g/dL (13.0-17.5) Hematocrit 39.0 % (39.0-53.0) Mean Corpuscular Volume 84 fL (79-100) Mean Corpuscular Hemoglobin 28 pg (25-35) Mean Corpuscular Hemoglobin Concent 33 g/dL (31-37) Red Cell Distribution Width 13.5 % (11.5-14.5) Platelet Count 189 x10^3/uL (140-400) Neutrophils (%) (Auto) 91 % (31-73) Lymphocytes (%) (Auto) 5 % (24-48) Monocytes (%) (Auto) 5 % (0-9) Eosinophils (%) (Auto) 0 % (0-3) Basophils (%) (Auto) 0 % (0-3) Neutrophils # (Auto) 10.4 x10^3/uL (1.8-7.7) Lymphocytes # (Auto) 0.5 x10^3/uL (1.0-4.8) Monocytes # (Auto) 0.5 x10^3/uL (0.0-1.1) Eosinophils # (Auto) 0.0 x10^3/uL (0.0-0.7) Basophils # (Auto) 0.0 x10^3/uL (0.0-0.2) Sodium Level 134 mmol/L (136-145) Potassium Level 4.0 mmol/L (3.5-5.1) Chloride Level 97 mmol/L (98-107) Carbon Dioxide Level 29 mmol/L (21-32) Anion Gap 8 (6-14) Blood Urea Nitrogen 15 mg/dL (8-26) Creatinine 0.9 mg/dL (0.7-1.3) Estimated GFR (Cockcroft-Gault) 93.0 BUN/Creatinine Ratio 17 (6-20) Glucose Level 135 mg/dL (70-99) Calcium Level 8.9 mg/dL (8.5-10.1) Total Bilirubin 0.8 mg/dL (0.2-1.0) Aspartate Amino Transf (AST/SGOT) 51 U/L (15-37) Alanine Aminotransferase (ALT/SGPT) 102 U/L (16-63) Alkaline Phosphatase 120 U/L (46-116) Total Protein 6.9 g/dL (6.4-8.2) Albumin 2.7 g/dL (3.4-5.0) Albumin/Globulin Ratio 0.6 (1.0-1.7) Thyroid Stimulating Hormone (TSH) 0.306 uIU/mL (0.358-3.74) O2 Saturation 85 % (92-99) Arterial Blood pH 7.40 (7.35-7.45) Arterial Blood pH (Temp corrected) 7.37 Arterial Blood pCO2 at Patient Temp 39 mmHg (35-46) Arterial Blood pCO2 (Temp correct) 43 mmHg Arterial Blood pO2 at Patient Temp 52 mmHg (75-108) Arterial Blood pO2 (Temp corrected) 60 mmHg Arterial Blood HCO3 24 mmol/L (21-28) Arterial Blood Base Excess -1 mmol/L (-3-3) FiO2 100 Laboratory Tests Test 05/08/20 09:29 O2 Saturation 85 % (92-99) Arterial Blood pH 7.40 (7.35-7.45) Arterial Blood pH (Temp corrected) 7.37 Arterial Blood pCO2 at Patient Temp 39 mmHg (35-46) Arterial Blood pCO2 (Temp correct) 43 mmHg Arterial Blood pO2 at Patient Temp 52 mmHg (75-108) Arterial Blood pO2 (Temp corrected) 60 mmHg Arterial Blood HCO3 24 mmol/L (21-28) Arterial Blood Base Excess -1 mmol/L (-3-3) FiO2 100 Microbiology 05/06/20 Urine Culture - Final, Complete 05/06/20 Blood Culture - Preliminary, Resulted NO GROWTH AFTER 1 DAY Medications Current Medications Levofloxacin/ Dextrose 150 ml @ 100 mls/hr 1X ONCE IV Last administered on 05/06/20at 15:25; Start 05/06/20 at 15:00; Stop 05/06/20 at 16:29; Status DC Methylprednisolone Sodium Succinate (SOLU-Medrol 125MG VIAL) 125 mg 1X ONCE IV Last administered on 05/06/20at 15:24; Start 05/06/20 at 15:00; Stop 05/06/20 at 15:01; Status DC Sodium Chloride 1,000 ml @ 1,000 mls/hr 1X ONCE IV Last administered on 05/06/20at 15:25; Start 05/06/20 at 15:00; Stop 05/06/20 at 15:59; Status DC Acetaminophen (Tylenol) 1,000 mg 1X ONCE PO Last administered on 05/06/20at 16:21; Start 05/06/20 at 16:15; Stop 05/06/20 at 16:16; Status DC Dexamethasone Sodium Phosphate (Decadron) 6 mg BID IVP Last administered on 05/07/20at 08:41; Start 05/06/20 at 21:00; Stop 05/07/20 at 10:06; Status DC Ceftriaxone Sodium (Rocephin) 1 gm Q24H IVP Last administered on 05/07/20at 17:25; Start 05/06/20 at 17:00 Azithromycin 250 ml @ 250 mls/hr 1X ONCE IV ; Start 05/06/20 at 16:30; Stop 05/06/20 at 17:29; Status Cancel Ceftriaxone Sodium (Rocephin) 1 gm DAILY08 IVP ; Start 05/07/20 at 08:00; Status UNV Sodium Chloride (Normal Saline Flush) 3 ml QSHIFT PRN IV AFTER MEDS AND BLOOD DRAWS; Start 05/06/20 at 16:30 Sodium Chloride 1,000 ml @ 100 mls/hr Q10H IV Last administered on 05/08/20at 10:28; Start 05/06/20 at 16:30 Ondansetron HCl (Zofran) 4 mg PRN Q4HRS PRN IV NAUSEA/VOMITING; Start 05/06/20 at 16:30 Acetaminophen (Tylenol) 650 mg PRN Q4HRS PRN PO TEMP OVER 100.4F OR MILD PAIN Last administered on 05/08/20at 10:26; Start 05/06/20 at 16:30 Al Hydroxide/Mg Hydroxide (Mylanta Plus Xs) 30 ml PRN DAILY PRN PO HEARTBURN / GAS; Start 05/06/20 at 16:30 Clonidine HCl (Catapres) 0.1 mg PRN Q6HRS PRN PO SBP>160 OR DBP>90 Last administered on 05/07/20at 21:03; Start 05/06/20 at 16:30 Sodium Monofluorophosphate (Fleet Adult) 133 ml PRN DAILY PRN VA CONSTIPATION; Start 05/06/20 at 16:30 Docusate Sodium (Colace) 100 mg PRN BID PRN PO HARD STOOLS; Start 05/06/20 at 16:30 Albuterol Sulfate (Ventolin Neb Soln) 2.5 mg PRN Q4HRS PRN NEB SHORTNESS OF BREATH; Start 05/06/20 at 16:30 Guaifenesin (Robitussin) 200 mg PRN Q4HRS PRN PO COUGH Last administered on 05/08/20 00:37; Start 05/06/20 at 16:30 Lorazepam (Ativan) 0.5 mg PRN Q4HRS PRN PO ANXIETY / AGITATION Last administered on 05/07/20at 05:09; Start 05/06/20 at 16:30; Stop 05/07/20 at 15:15; Status DC Enoxaparin Sodium (Lovenox 40mg Syringe) 40 mg Q24H SQ Last administered on 05/06/20at 17:29; Start 05/06/20 at 17:00; Stop 05/07/20 at 10:20; Status DC Azithromycin 500 mg/Sodium Chloride 250 ml @ 250 mls/hr Q24H IV Last administered on 05/08/20at 10:22; Start 05/07/20 at 09:00 Iohexol (Omnipaque 350 Mg/ml) 100 ml 1X ONCE IV Last administered on 05/06/20at 17:04; Start 05/06/20 at 16:45; Stop 05/06/20 at 16:46; Status DC Info (CONTRAST GIVEN -- Rx MONITORING) 1 each PRN DAILY PRN MC SEE COMMENTS; Start 05/06/20 at 16:45; Stop 05/08/20 at 16:44 Dexamethasone Sodium Phosphate (Decadron) 6 mg BID IVP ; Start 05/07/20 at 09:00; Status UNV Ascorbic Acid (Vitamin C) 500 mg DAILY PO Last administered on 05/08/20at 10:26; Start 05/07/20 at 09:00 Famotidine (Pepcid) 20 mg BID PO Last administered on 05/07/20at 21:04; Start 05/07/20 at 09:00 Vitamin D (Vitamin D3) 2,000 unit DAILY PO Last administered on 05/08/20at 10:27; Start 05/07/20 at 09:00 Zinc Sulfate (Orazinc) 220 mg DAILY PO Last administered on 05/08/20at 10:27; Start 05/07/20 at 09:00 Labetalol HCl (Normodyne Iv Push) 10 mg PRN Q3HRS PRN IVP HYPERTENSION Last administered on 05/07/20at 18:13; Start 05/07/20 at 08:30 Amlodipine Besylate (Norvasc) 10 mg DAILY PO ; Start 05/07/20 at 09:00 Isosorbide Mononitrate (Imdur) 60 mg DAILY PO ; Start 05/07/20 at 09:00 Dexamethasone Sodium Phosphate (Decadron) 6 mg DAILY IVP Last administered on 05/08/20at 10:26; Start 05/08/20 at 09:00 Thiamine HCl 100 mg/Folic Acid 1 mg/Sodium Chloride 1,001.2 ml @ 990.198 mls/hr 1X ONCE IV Last administered on 05/07/20at 12:44; Start 05/07/20 at 10:15; Stop 05/07/20 at 11:15; Status DC Enoxaparin Sodium (Lovenox 40mg Syringe) 40 mg BID SQ Last administered on 05/08/20at 10:25; Start 05/07/20 at 11:00 Lactobacillus Rhamnosus (Culturelle) 1 cap BID PO Last administered on 05/08/20at 10:26; Start 05/07/20 at 21:00 Sterile Water (WATER for RESP) 1,000 ml CONT PRN INH VIA VAPOTHERM DEVICE Last administered on 05/07/20at 21:05; Start 05/07/20 at 12:15 Lorazepam (Ativan Inj) 0.5 mg PRN Q4HRS PRN IVP ANXIETY / AGITATION Last administered on 05/08/20at 01:14; Start 05/07/20 at 15:15 Dexmedetomidine HCl 400 mcg/ Sodium Chloride 100 ml @ 0 mls/hr CONT PRN IV PER PROTOCOL Last administered on 05/08/20at 06:50; Start 05/08/20 at 06:45 Fentanyl Citrate (Fentanyl 2ml Vial) 25 mcg PRN Q1HR PRN IV SEVERE PAIN 7-10; Start 05/08/20 at 06:45 Propofol 100 ml @ As Directed STK-MED ONCE IV ; Start 05/08/20 at 07:19; Stop 05/08/20 at 07:19; Status DC Succinylcholine Chloride (Anectine) 200 mg STK-MED ONCE .ROUTE ; Start 05/08/20 at 07:19; Stop 05/08/20 at 07:20; Status DC Fentanyl Citrate 30 ml @ 0 mls/hr CONT PRN IV SEE PROTOCOL Last administered on 05/08/20at 12:21; Start 05/08/20 at 07:45 Propofol 100 ml @ 0 mls/hr CONT PRN IV PER PROTOCOL; Start 05/08/20 at 07:45 Chlorhexidine Gluconate (Peridex) 15 ml BID MM Last administered on 05/08/20at 10:26; Start 05/08/20 at 09:00 Midazolam HCl 100 ml @ 0 mls/hr CONT PRN IV SEE PROTOCOL Last administered on at 12:15; Start 05/08/20 at 07:45 Vecuronium [place] (Norcuron Bolus) 10 mg STK-MED ONCE IV ; Start 05/08/20 at 08:21; Stop 05/08/20 at 08:21; Status DC Pantoprazole Sodium (PROTONIX VIAL for IV PUSH) 40 mg DAILYAC IVP Last administered on 05/08/20at 10:25; Start 05/08/20 at 11:00 Vecuronium [place] (Norcuron Bolus) 10 mg 1X ONCE IV Last administered on 05/08/20at 11:07; Start 05/08/20 at 10:00; Stop 05/08/20 at 10:01; Status DC Norepinephrine Bitartrate 8 mg/ Dextrose 258 ml @ 22.736 mls/ hr CONT PRN IV PER PROTOCOL Last administered on 05/08/20at 11:14; Start 05/08/20 at 10:45 Vecuronium [place] (Norcuron Bolus) 5 mg 1X ONCE IV ; Start 05/08/20 at 10:45; Stop 05/08/20 at 10:46; Status Cancel Succinylcholine Chloride (Anectine) 200 mg 1X ONCE IV Last administered on 05/08/20at 11:08; Start 05/08/20 at 10:45; Stop 05/08/20 at 10:46; Status DC Vecuronium [place] (Norcuron Bolus) 6 mg PRN Q4HRS PRN IV AGITATION; Start 05/08/20 at 10:45 Vitals/I & O Vital Sign - Last 24 Hours 05/07/20 05/07/20 05/07/20 05/07/20 13:00 14:00 15:00 15:39 Pulse 105 109 107 Resp 23 26 26 B/P (MAP) 132/73 (92) 139/80 (99) 124/84 (97) Pulse Ox 96 94 97 96 O2 Delivery Vapotherm Vapotherm Vapotherm Nasal Cannula O2 Flow Rate 40.0 40.0 40.0 40.0 05/07/20 05/07/20 05/07/20 05/07/20 16:00 16:00 17:00 18:00 Temp 99.0 99.0 Pulse 104 108 106 Resp 26 25 25 B/P (MAP) 152/79 (103) 144/88 (106) 161/99 (119) Pulse Ox 94 96 96 O2 Delivery Nasal Cannula Vapotherm Vapotherm Vapotherm O2 Flow Rate 40.0 40.0 40.0 40.0 05/07/20 05/07/20 05/07/20 05/07/20 18:13 19:00 20:00 20:00 Pulse 105 112 18 Resp 36 36 B/P (MAP) 161/99 168/90 (116) 172/85 (114) Pulse Ox 90 90 O2 Delivery Vapotherm Nasal Cannula Vapotherm O2 Flow Rate 40.0 40.0 40.0 05/07/20 05/07/20 05/07/20 05/07/20 20:27 21:00 21:03 22:00 Pulse 119 112 106 Resp 36 36 B/P (MAP) 166/85 (112) 168/90 171/80 (110) Pulse Ox 92 89 90 O2 Delivery Nasal Cannula Vapotherm Vapotherm O2 Flow Rate 40.0 40.0 40.0 05/07/20 05/07/20 05/07/20 05/08/20 23:00 23:39 23:59 00:01 Pulse 100 108 Resp 36 36 B/P (MAP) 127/66 (86) 156/72 (100) Pulse Ox 92 88 90 O2 Delivery Vapotherm Nasal Cannula Nasal Cannula Vapotherm O2 Flow Rate 40.0 40.0 40.0 40.0 05/08/20 05/08/20 05/08/20 05/08/20 01:00 02:00 03:00 04:00 Temp 101.3 100.6 101.3 100.6 Pulse 109 109 108 114 Resp 36 36 36 36 B/P (MAP) 153/77 (102) 106/61 (76) 119/62 (81) 85/46 (59) Pulse Ox 90 92 88 86 O2 Delivery Vapotherm Vapotherm Vapotherm Vapotherm O2 Flow Rate 40.0 40.0 40.0 40.0 05/08/20 05/08/20 05/08/20 05/08/20 04:00 04:08 05:00 06:00 Pulse 123 122 Resp 36 36 B/P (MAP) 141/62 (88) 145/76 (99) Pulse Ox 86 84 86 O2 Delivery Nasal Cannula Nasal Cannula Vapotherm Vapotherm O2 Flow Rate 40.0 40.0 40.0 40.0 05/08/20 05/08/20 05/08/20 05/08/20 07:00 08:15 08:15 08:15 Temp 101.4 101.4 Pulse 126 132 Resp 40 34 B/P (MAP) 161/87 (111) 175/84 (114) Pulse Ox 85 80 O2 Delivery Vapotherm Ventilator Mechanical Ventilator O2 Flow Rate 40.0 05/08/20 05/08/20 05/08/20 05/08/20 08:23 08:38 09:00 09:30 Temp 102.2 101.5 102.2 101.5 Pulse 132 118 Resp 32 30 B/P (MAP) 200/107 (138) 108/53 (71) Pulse Ox 48 79 84 85 O2 Delivery Ventilator Ventilator Ventilator Ventilator 05/08/20 05/08/20 05/08/20 05/08/20 10:00 10:15 10:30 10:45 Temp 101.5 101.5 Pulse 96 Resp 30 B/P (MAP) 74/40 (51) 74/42 (53) 78/42 (54) 84/44 (57) Pulse Ox 88 O2 Delivery Ventilator 05/08/20 05/08/20 05/08/20 05/08/20 11:00 11:15 11:25 11:30 Temp 101.1 101.1 Pulse 96 Resp 30 B/P (MAP) 134/80 (98) 120/60 (80) 104/56 (72) Pulse Ox 93 93 O2 Delivery Ventilator Ventilator 05/08/20 05/08/20 05/08/20 05/08/20 11:45 12:00 12:00 12:00 Temp 101.1 101.1 Pulse 90 Resp 30 B/P (MAP) 100/54 (69) 102/54 (70) Pulse Ox 91 O2 Delivery Ventilator Mechanical Ventilator 05/08/20 12:21 Pulse Ox 92 O2 Delivery Ventilator Intake and Output0 05/07/20 05/07/20 05/08/20 15:00 23:00 07:00 Intake Total 2700 ml 500 ml Output Total 1302 ml 0 ml Balance 1398 ml 500 ml Justifications for Admission General Conditions Poss tachycardia?: Yes Justification for admission: Patient has tachycardia (> 100 beats per minute) which is not readily corrected by appropriate treatment within 12 to 24 hours. acute hypoxic resp failure Other Justification NAMARTA ROYAL MD May 08, 2020 12:31
[2020-05-08] MEDS ORDERED: PIP/TAZO PER PHARMACY MC PRN (13:15)
[2020-05-08] MEDS ORDERED: fentaNYL HIGH DOSE PCA 2,750 ML IV PRN (13:45)
[2020-05-08] MEDS: PIPERACILLIN/TAZOBACTAM 3.375 GM in IV NORMAL SALINE 50ML 50 ML IV SCH ×2 (14:29→18:49)
[2020-05-09] VITALS (24 sets, daily range): BP systolic 102–140; BP diastolic 58–80
[2020-05-09] MEDS: PIPERACILLIN/TAZOBACTAM 3.375 GM in IV NORMAL SALINE 50ML 50 ML IV SCH ×5 (00:56→23:55)
[2020-05-09] MEDS: MIDAZOLAM 100mg/100ml NS BAG 100 ML IV PRN ×3 (00:59→21:41)
[2020-05-09] MEDS: DEXMEDETOMIDINE 400 MCG in IV NORMAL SALINE 100ML 96 ML IV PRN ×3 (01:02→19:02)
[2020-05-09] MEDS: fentaNYL HIGH DOSE PCA 55 ML IV PRN ×2 (05:11→21:39)
[2020-05-09 06:10] LABS: BASO % 0 % (0-3); EOS % 0 % (0-3); HEMATOCRIT 31.9 % (39.0-53.0); HEMOGLOBIN 10.7 g/dL (13.0-17.5); LYMPH # 0.8 x10^3/uL (1.0-4.8); LYMPH % 12 % (24-48); MEAN CORPUSCULAR HEMOGLOBIN 28 pg (25-35); MEAN CORPUSCULAR HGB CONC 34 g/dL (31-37); MEAN CORPUSCULAR VOLUME 84 fL (79-100); MONO # 0.4 x10^3/uL (0.0-1.1); MONO % 7 % (0-9); NEUT # 5.2 x10^3/uL (1.8-7.7); NEUT % 81 % (31-73); PLATELET COUNT 160 x10^3/uL (140-400); RED BLOOD COUNT 3.79 x10^6/uL (4.30-5.70); RED CELL DISTRIBUTION WIDTH 13.6 % (11.5-14.5); WHITE BLOOD COUNT 6.5 x10^3/uL (4.0-11.0)
[2020-05-09 06:26] LABS: ALBUMIN 1.8 g/dL (3.4-5.0); ALBUMIN/GLOBULIN RATIO 0.4 (1.0-1.7); CALCIUM 8.4 mg/dL (8.5-10.1); CREATININE 0.9 mg/dL (0.7-1.3); POTASSIUM 3.9 mmol/L (3.5-5.1); TOTAL BILIRUBIN 0.6 mg/dL (0.2-1.0); TOTAL PROTEIN 5.9 g/dL (6.4-8.2)
[2020-05-09] MEDS: ISOSORBIDE MONONITRATE ER 30 MG TAB.ER.24H PO SCH (07:26)
[2020-05-09] MEDS: PANTOPRAZOLE IV PUSH 40 MG VIAL. IVP SCH (07:51)
[2020-05-09] MEDS: ENOXAPARIN 40 MG/0.4 ML SYRINGE. SQ SCH ×2 (07:51→20:56)
[2020-05-09] MEDS: ZINC SULFATE 220 MG CAPSULE. PO SCH (07:52)
[2020-05-09] MEDS: LACTOBACILLUS RHAMNOSUS GG 1 CAPSULE. PO SCH ×2 (07:52→20:56)
[2020-05-09] MEDS: AZITHROMYCIN 500 MG in IV NORMAL SALINE 250ML 250 ML IV SCH (07:52)
[2020-05-09] MEDS: amLODIPine BESYLATE 10 MG TABLET PO SCH (07:53)
[2020-05-09] MEDS: ASCORBIC ACID 500 MG TABLET PO SCH (07:53)
[2020-05-09] MEDS: CHOLECALCIFEROL (VITAMIN D3) 1,000 UNIT TABLET PO SCH (07:53)
[2020-05-09] MEDS: DEXAMETHASONE SOD PHOS 4 MG/ML VIAL IVP SCH (07:54)
[2020-05-09] MEDS: IV NORMAL SALINE 1000ML BAG 1,000 ML IV SCH ×2 (08:31→18:42)
--- NOTE | 2020-05-09 09:02 | PDOC ---
PULMONARY PROGRESS NOTES DATE: 05/09/20 TIME: 08:58 Subjective Remains vent 100% and PEEP of 12 no overnight events Vitals Vital Signs Date Time Temp Pulse Resp B/P (MAP) Pulse Ox O2 Delivery O2 Flow Rate FiO2 05/09/20 08:00 98.2 68 30 107/61 (76) 98 Ventilator 98.2 05/09/20 05:11 40.0 Comments Pt. seen during , visual exam preformed Tachy accessory muscle use no rash or edema intubated Labs Laboratory Tests Test 05/08/20 09:29 05/09/20 05:40 05/09/20 05:41 O2 Saturation 85 % (92-99) Arterial Blood pH 7.40 (7.35-7.45) Arterial Blood pH (Temp corrected) 7.37 Arterial Blood pCO2 at Patient Temp 39 mmHg (35-46) Arterial Blood pCO2 (Temp correct) 43 mmHg Arterial Blood pO2 at Patient Temp 52 mmHg (75-108) Arterial Blood pO2 (Temp corrected) 60 mmHg Arterial Blood HCO3 24 mmol/L (21-28) Arterial Blood Base Excess -1 mmol/L (-3-3) FiO2 100 White Blood Count 6.5 x10^3/uL (4.0-11.0) Red Blood Count 3.79 x10^6/uL (4.30-5.70) Hemoglobin 10.7 g/dL (13.0-17.5) Hematocrit 31.9 % (39.0-53.0) Mean Corpuscular Volume 84 fL (79-100) Mean Corpuscular Hemoglobin 28 pg (25-35) Mean Corpuscular Hemoglobin Concent 34 g/dL (31-37) Red Cell Distribution Width 13.6 % (11.5-14.5) Platelet Count 160 x10^3/uL (140-400) Neutrophils (%) (Auto) 81 % (31-73) Lymphocytes (%) (Auto) 12 % (24-48) Monocytes (%) (Auto) 7 % (0-9) Eosinophils (%) (Auto) 0 % (0-3) Basophils (%) (Auto) 0 % (0-3) Neutrophils # (Auto) 5.2 x10^3/uL (1.8-7.7) Lymphocytes # (Auto) 0.8 x10^3/uL (1.0-4.8) Monocytes # (Auto) 0.4 x10^3/uL (0.0-1.1) Eosinophils # (Auto) 0.0 x10^3/uL (0.0-0.7) Basophils # (Auto) 0.0 x10^3/uL (0.0-0.2) Sodium Level 140 mmol/L (136-145) Potassium Level 3.9 mmol/L (3.5-5.1) Chloride Level 106 mmol/L (98-107) Carbon Dioxide Level 24 mmol/L (21-32) Anion Gap 10 (6-14) Blood Urea Nitrogen 18 mg/dL (8-26) Creatinine 0.9 mg/dL (0.7-1.3) Estimated GFR (Cockcroft-Gault) 93.0 BUN/Creatinine Ratio 20 (6-20) Glucose Level 135 mg/dL (70-99) Calcium Level 8.4 mg/dL (8.5-10.1) Total Bilirubin 0.6 mg/dL (0.2-1.0) Aspartate Amino Transf (AST/SGOT) 36 U/L (15-37) Alanine Aminotransferase (ALT/SGPT) 76 U/L (16-63) Alkaline Phosphatase 100 U/L (46-116) Total Protein 5.9 g/dL (6.4-8.2) Albumin 1.8 g/dL (3.4-5.0) Albumin/Globulin Ratio 0.4 (1.0-1.7) Glucose (Fingerstick) 131 mg/dL (70-99) Laboratory Tests Test 05/08/20 09:29 05/09/20 05:40 05/09/20 05:41 O2 Saturation 85 % (92-99) Arterial Blood pH 7.40 (7.35-7.45) Arterial Blood pH (Temp corrected) 7.37 Arterial Blood pCO2 at Patient Temp 39 mmHg (35-46) Arterial Blood pCO2 (Temp correct) 43 mmHg Arterial Blood pO2 at Patient Temp 52 mmHg (75-108) Arterial Blood pO2 (Temp corrected) 60 mmHg Arterial Blood HCO3 24 mmol/L (21-28) Arterial Blood Base Excess -1 mmol/L (-3-3) FiO2 100 White Blood Count 6.5 x10^3/uL (4.0-11.0) Red Blood Count 3.79 x10^6/uL (4.30-5.70) Hemoglobin 10.7 g/dL (13.0-17.5) Hematocrit 31.9 % (39.0-53.0) Mean Corpuscular Volume 84 fL (79-100) Mean Corpuscular Hemoglobin 28 pg (25-35) Mean Corpuscular Hemoglobin Concent 34 g/dL (31-37) Red Cell Distribution Width 13.6 % (11.5-14.5) Platelet Count 160 x10^3/uL (140-400) Neutrophils (%) (Auto) 81 % (31-73) Lymphocytes (%) (Auto) 12 % (24-48) Monocytes (%) (Auto) 7 % (0-9) Eosinophils (%) (Auto) 0 % (0-3) Basophils (%) (Auto) 0 % (0-3) Neutrophils # (Auto) 5.2 x10^3/uL (1.8-7.7) Lymphocytes # (Auto) 0.8 x10^3/uL (1.0-4.8) Monocytes # (Auto) 0.4 x10^3/uL (0.0-1.1) Eosinophils # (Auto) 0.0 x10^3/uL (0.0-0.7) Basophils # (Auto) 0.0 x10^3/uL (0.0-0.2) Sodium Level 140 mmol/L (136-145) Potassium Level 3.9 mmol/L (3.5-5.1) Chloride Level 106 mmol/L (98-107) Carbon Dioxide Level 24 mmol/L (21-32) Anion Gap 10 (6-14) Blood Urea Nitrogen 18 mg/dL (8-26) Creatinine 0.9 mg/dL (0.7-1.3) Estimated GFR (Cockcroft-Gault) 93.0 BUN/Creatinine Ratio 20 (6-20) Glucose Level 135 mg/dL (70-99) Calcium Level 8.4 mg/dL (8.5-10.1) Total Bilirubin 0.6 mg/dL (0.2-1.0) Aspartate Amino Transf (AST/SGOT) 36 U/L (15-37) Alanine Aminotransferase (ALT/SGPT) 76 U/L (16-63) Alkaline Phosphatase 100 U/L (46-116) Total Protein 5.9 g/dL (6.4-8.2) Albumin 1.8 g/dL (3.4-5.0) Albumin/Globulin Ratio 0.4 (1.0-1.7) Glucose (Fingerstick) 131 mg/dL (70-99) Comments CXR 05/08/20 IMPRESSION: 1. Nasogastric tube within the proximal stomach. There are prominent air-filled bowel throughout the visualized upper abdomen which are similar compared to the prior study. 2. Increase in partially consolidated left greater the right lung infiltrate superimposed on diffuse interstitial and alveolar infiltrate. Impression . IMPRESSION: 1. Acute respiratory failure secondary to COVID-19 viral pneumonia, worsening, now requiring intubation 2. COVID-19 viral pneumonia. 3. Possible bacterial pneumonia. 4. Hypertension. 5. Obesity. 6. Tobacco dependent. 7. Elevated liver chemistries. Plan . 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 is FULL CODE Critical care time [id number] ADDISON LONDON MD May 09, 2020 09:02
[2020-05-09 09:31] LABS: BASE EXCESS ABG 1 mmol/L (-3-3); HCO3 ABG 25 mmol/L (21-28); PCO2 ABG 38 mmHg (35-46); PO2 ABG 87 mmHg (75-108); SAT O2 ABG 96 % (92-99)
--- NOTE | 2020-05-09 10:17 | PDOC ---
PROGRESS NOTES Date of Service: DATE: 05/09/20 TIME: 10:17 Chief Complaint Chief Complaint VTE Prophylaxis Ordered VTE Prophylaxis Devices: Yes VTE Pharmacological Prophylaxi: Yes Assessment/Plan Assessment/Plan Impression: Primary Impression: Fever secondary to viremia , sepsis Transaminitis Hyponatremia Acute hypoxic respiratory failure Extensive infiltrates throughout BILATERAL lung lord, concerning for covid/ SARS morbid obesity dvt prophylaxis, lovenox tobacco abuse disorder uncontrolled hypertension Intubated 2/2 respiratory decompensation Fever and tachycardia Remains vent 100% and PEEP of 12 prominent air-filled bowel throughout the visualized upper abdomen which are similar compared to the prior study. MORBID OBESITY plan admit blood cultures icu bed emperic iv antibiotics consult pulmonary follow lytes gi prophylaxis iv labetalol 5-10mg q 3 hrs prn bp support iv decadron 6 mg bid pepsid 20mg po bid zinc 220mg po daily, vitamin c, vitamin D SPUTUM CULTURE ID CONSULT IV ZOSYN 40 min cc time History of Present Illness History of Present Illness Identification/Chief Complaint Chief Complaint seen in er with acute resp distress, known COVID POSITIVE 40-year-old male who arrives ambulatory to the emergency department complaining progressive difficulty breathing., breathing today has become considerably more labored than it has in the past 2 days. Patient reports on 05-04 he was diagnosed with coronavirus. TEMP on arrival 103.2 F abg c/w resp alkalosis and hypoxia he has become progressively more short of breath and states he has mild chest tightness. HYPOXIC, alert and ill-appearing. Past Medical History Past Medical History Past Medical History Past Medical History Past Medical History: Hypertension, Pneumonia Past Surgical History: Other Additional Past Surgical Histo: KNEE SURGERY, BROKEN RIGHT ARM WITH SURGERY Smoking Status: Current Some Day Smoker Alcohol Use: Occasionally FHX COPD, OBESITY Family History Family History: Hypertension Social History Smoke: <1 pack per day ALCOHOL: none Drugs: None Current Problem List Problem List Problems Medical Problems: (1) COVID-19 Status: Acute (2) Respiratory failure Status: Acute Vitals Vitals Vital Signs Date Time Temp Pulse Resp B/P (MAP) Pulse Ox O2 Delivery O2 Flow Rate FiO2 05/09/20 10:00 68 30 108/61 (77) 95 Ventilator 05/09/20 08:00 98.2 98.2 05/09/20 05:11 40.0 Physical Exam Physical Exam Constitutional: SEDATED ON VENT[] HENT: Normocephalic, atraumatic, bilateral external ears normal, oropharynx moist, no oral exudates, nose normal. [] Eyes: PERRLA, EOMI, conjunctiva normal, no discharge. [] Neck: Normal range of motion, no tenderness, supple, no stridor. [] Cardiovascular: Tachycardia. no murmur [] Lungs & Thorax: tachypnea , crackles , bilaterally. Abdomen: Bowel sounds normal, soft, no tenderness, no masses, no pulsatile masses. [] Skin: Warm, dry, no erythema, no rash. [] Back: No tenderness, no CVA tenderness. [] Extremities: No tenderness, no cyanosis, no clubbing, ROM intact, no edema. [] Neurologic: Alert and oriented X 3, normal motor function, normal sensory function, no focal deficits noted. [] Heart: RRR, no gallops, no murmurs Breasts: Not examined Abdomen: Soft, No tenderness Rectal Exam: not examined PELVIC: Examination not indicated Extremities: No cyanosis Neuro: Cranial nerves 3-12 NL General: No acute distress Heart: Regular rate (SR), Other (distant heart sounds) Abdomen: Other (distended and firm) Extremities: No clubbing, No cyanosis, Other (trace LE edema) Skin: No breakdown, No significant lesion Labs LABS SPEC #: [id number] MEGAN: 05/06/20 STATUS: RES REQ #: [id number] RECD: 05/06/[address]: GAETANO MENDOZA DO SOURCE: BLOOD ENTR: 05/06/20 [facility] DR: CALLY: ORDERED: BCULT Procedure Result BLOOD CULTURE Preliminary NO GROWTH AFTER 3 DAYS Laboratory Tests Test 05/09/20 05:40 05/09/20 05:41 White Blood Count 6.5 x10^3/uL (4.0-11.0) Red Blood Count 3.79 x10^6/uL (4.30-5.70) Hemoglobin 10.7 g/dL (13.0-17.5) Hematocrit 31.9 % (39.0-53.0) Mean Corpuscular Volume 84 fL (79-100) Mean Corpuscular Hemoglobin 28 pg (25-35) Mean Corpuscular Hemoglobin Concent 34 g/dL (31-37) Red Cell Distribution Width 13.6 % (11.5-14.5) Platelet Count 160 x10^3/uL (140-400) Neutrophils (%) (Auto) 81 % (31-73) Lymphocytes (%) (Auto) 12 % (24-48) Monocytes (%) (Auto) 7 % (0-9) Eosinophils (%) (Auto) 0 % (0-3) Basophils (%) (Auto) 0 % (0-3) Neutrophils # (Auto) 5.2 x10^3/uL (1.8-7.7) Lymphocytes # (Auto) 0.8 x10^3/uL (1.0-4.8) Monocytes # (Auto) 0.4 x10^3/uL (0.0-1.1) Eosinophils # (Auto) 0.0 x10^3/uL (0.0-0.7) Basophils # (Auto) 0.0 x10^3/uL (0.0-0.2) Sodium Level 140 mmol/L (136-145) Potassium Level 3.9 mmol/L (3.5-5.1) Chloride Level 106 mmol/L (98-107) Carbon Dioxide Level 24 mmol/L (21-32) Anion Gap 10 (6-14) Blood Urea Nitrogen 18 mg/dL (8-26) Creatinine 0.9 mg/dL (0.7-1.3) Estimated GFR (Cockcroft-Gault) 93.0 BUN/Creatinine Ratio 20 (6-20) Glucose Level 135 mg/dL (70-99) Calcium Level 8.4 mg/dL (8.5-10.1) Total Bilirubin 0.6 mg/dL (0.2-1.0) Aspartate Amino Transf (AST/SGOT) 36 U/L (15-37) Alanine Aminotransferase (ALT/SGPT) 76 U/L (16-63) Alkaline Phosphatase 100 U/L (46-116) Total Protein 5.9 g/dL (6.4-8.2) Albumin 1.8 g/dL (3.4-5.0) Albumin/Globulin Ratio 0.4 (1.0-1.7) Glucose (Fingerstick) 131 mg/dL (70-99) Assessment and Plan Assessmemt and Plan Problems Medical Problems: (1) COVID-19 Status: Acute (2) Hyponatremia Status: Acute (3) Respiratory failure Status: Acute (4) Transaminitis Status: Acute Comment Review of Relevant I have reviewed the following items kush (where applicable) has been applied. Labs Laboratory Tests Test 05/08/20 09:29 05/09/20 05:40 05/09/20 05:41 O2 Saturation 85 % (92-99) Arterial Blood pH 7.40 (7.35-7.45) Arterial Blood pH (Temp corrected) 7.37 Arterial Blood pCO2 at Patient Temp 39 mmHg (35-46) Arterial Blood pCO2 (Temp correct) 43 mmHg Arterial Blood pO2 at Patient Temp 52 mmHg (75-108) Arterial Blood pO2 (Temp corrected) 60 mmHg Arterial Blood HCO3 24 mmol/L (21-28) Arterial Blood Base Excess -1 mmol/L (-3-3) FiO2 100 White Blood Count 6.5 x10^3/uL (4.0-11.0) Red Blood Count 3.79 x10^6/uL (4.30-5.70) Hemoglobin 10.7 g/dL (13.0-17.5) Hematocrit 31.9 % (39.0-53.0) Mean Corpuscular Volume 84 fL (79-100) Mean Corpuscular Hemoglobin 28 pg (25-35) Mean Corpuscular Hemoglobin Concent 34 g/dL (31-37) Red Cell Distribution Width 13.6 % (11.5-14.5) Platelet Count 160 x10^3/uL (140-400) Neutrophils (%) (Auto) 81 % (31-73) Lymphocytes (%) (Auto) 12 % (24-48) Monocytes (%) (Auto) 7 % (0-9) Eosinophils (%) (Auto) 0 % (0-3) Basophils (%) (Auto) 0 % (0-3) Neutrophils # (Auto) 5.2 x10^3/uL (1.8-7.7) Lymphocytes # (Auto) 0.8 x10^3/uL (1.0-4.8) Monocytes # (Auto) 0.4 x10^3/uL (0.0-1.1) Eosinophils # (Auto) 0.0 x10^3/uL (0.0-0.7) Basophils # (Auto) 0.0 x10^3/uL (0.0-0.2) Sodium Level 140 mmol/L (136-145) Potassium Level 3.9 mmol/L (3.5-5.1) Chloride Level 106 mmol/L (98-107) Carbon Dioxide Level 24 mmol/L (21-32) Anion Gap 10 (6-14) Blood Urea Nitrogen 18 mg/dL (8-26) Creatinine 0.9 mg/dL (0.7-1.3) Estimated GFR (Cockcroft-Gault) 93.0 BUN/Creatinine Ratio 20 (6-20) Glucose Level 135 mg/dL (70-99) Calcium Level 8.4 mg/dL (8.5-10.1) Total Bilirubin 0.6 mg/dL (0.2-1.0) Aspartate Amino Transf (AST/SGOT) 36 U/L (15-37) Alanine Aminotransferase (ALT/SGPT) 76 U/L (16-63) Alkaline Phosphatase 100 U/L (46-116) Total Protein 5.9 g/dL (6.4-8.2) Albumin 1.8 g/dL (3.4-5.0) Albumin/Globulin Ratio 0.4 (1.0-1.7) Glucose (Fingerstick) 131 mg/dL (70-99) Laboratory Tests Test 05/09/20 05:40 05/09/20 05:41 White Blood Count 6.5 x10^3/uL (4.0-11.0) Red Blood Count 3.79 x10^6/uL (4.30-5.70) Hemoglobin 10.7 g/dL (13.0-17.5) Hematocrit 31.9 % (39.0-53.0) Mean Corpuscular Volume 84 fL (79-100) Mean Corpuscular Hemoglobin 28 pg (25-35) Mean Corpuscular Hemoglobin Concent 34 g/dL (31-37) Red Cell Distribution Width 13.6 % (11.5-14.5) Platelet Count 160 x10^3/uL (140-400) Neutrophils (%) (Auto) 81 % (31-73) Lymphocytes (%) (Auto) 12 % (24-48) Monocytes (%) (Auto) 7 % (0-9) Eosinophils (%) (Auto) 0 % (0-3) Basophils (%) (Auto) 0 % (0-3) Neutrophils # (Auto) 5.2 x10^3/uL (1.8-7.7) Lymphocytes # (Auto) 0.8 x10^3/uL (1.0-4.8) Monocytes # (Auto) 0.4 x10^3/uL (0.0-1.1) Eosinophils # (Auto) 0.0 x10^3/uL (0.0-0.7) Basophils # (Auto) 0.0 x10^3/uL (0.0-0.2) Sodium Level 140 mmol/L (136-145) Potassium Level 3.9 mmol/L (3.5-5.1) Chloride Level 106 mmol/L (98-107) Carbon Dioxide Level 24 mmol/L (21-32) Anion Gap 10 (6-14) Blood Urea Nitrogen 18 mg/dL (8-26) Creatinine 0.9 mg/dL (0.7-1.3) Estimated GFR (Cockcroft-Gault) 93.0 BUN/Creatinine Ratio 20 (6-20) Glucose Level 135 mg/dL (70-99) Calcium Level 8.4 mg/dL (8.5-10.1) Total Bilirubin 0.6 mg/dL (0.2-1.0) Aspartate Amino Transf (AST/SGOT) 36 U/L (15-37) Alanine Aminotransferase (ALT/SGPT) 76 U/L (16-63) Alkaline Phosphatase 100 U/L (46-116) Total Protein 5.9 g/dL (6.4-8.2) Albumin 1.8 g/dL (3.4-5.0) Albumin/Globulin Ratio 0.4 (1.0-1.7) Glucose (Fingerstick) 131 mg/dL (70-99) Microbiology 05/06/20 Urine Culture - Final, Complete 05/06/20 Blood Culture - Preliminary, Resulted NO GROWTH AFTER 2 DAYS Medications Current Medications Levofloxacin/ Dextrose 150 ml @ 100 mls/hr 1X ONCE IV Last administered on 05/06/20at 15:25; Start 05/06/20 at 15:00; Stop 05/06/20 at 16:29; Status DC Methylprednisolone Sodium Succinate (SOLU-Medrol 125MG VIAL) 125 mg 1X ONCE IV Last administered on 05/06/20at 15:24; Start 05/06/20 at 15:00; Stop 05/06/20 at 15:01; Status DC Sodium Chloride 1,000 ml @ 1,000 mls/hr 1X ONCE IV Last administered on 05/06/20at 15:25; Start 05/06/20 at 15:00; Stop 05/06/20 at 15:59; Status DC Acetaminophen (Tylenol) 1,000 mg 1X ONCE PO Last administered on 05/06/20at 16:21; Start 05/06/20 at 16:15; Stop 05/06/20 at 16:16; Status DC Dexamethasone Sodium Phosphate (Decadron) 6 mg BID IVP Last administered on 05/07/20at 08:41; Start 05/06/20 at 21:00; Stop 05/07/20 at 10:06; Status DC Ceftriaxone Sodium (Rocephin) 1 gm Q24H IVP Last administered on 05/07/20at 17:25; Start 05/06/20 at 17:00; Stop 05/08/20 at 13:18; Status DC Azithromycin 250 ml @ 250 mls/hr 1X ONCE IV ; Start 05/06/20 at 16:30; Stop 05/06/20 at 17:29; Status Cancel Ceftriaxone Sodium (Rocephin) 1 gm DAILY08 IVP ; Start 05/07/20 at 08:00; Status UNV Sodium Chloride (Normal Saline Flush) 3 ml QSHIFT PRN IV AFTER MEDS AND BLOOD DRAWS; Start 05/06/20 at 16:30 Sodium Chloride 1,000 ml @ 120 mls/hr Q8H20M IV Last administered on 05/09/20at 08:31; Start 05/06/20 at 16:30 Ondansetron HCl (Zofran) 4 mg PRN Q4HRS PRN IV NAUSEA/VOMITING; Start 05/06/20 at 16:30 Acetaminophen (Tylenol) 650 mg PRN Q4HRS PRN PO TEMP OVER 100.4F OR MILD PAIN Last administered on 05/08/20at 10:26; Start 05/06/20 at 16:30; Stop 05/08/20 at 12:29; Status DC Al Hydroxide/Mg Hydroxide (Mylanta Plus Xs) 30 ml PRN DAILY PRN PO HEARTBURN / GAS; Start 05/06/20 at 16:30 Clonidine HCl (Catapres) 0.1 mg PRN Q6HRS PRN PO SBP>160 OR DBP>90 Last administered on 05/07/20at 21:03; Start 05/06/20 at 16:30 Sodium Monofluorophosphate (Fleet Adult) 133 ml PRN DAILY PRN ND CONSTIPATION; Start 05/06/20 at 16:30 Docusate Sodium (Colace) 100 mg PRN BID PRN PO HARD STOOLS; Start 05/06/20 at 16:30 Albuterol Sulfate (Ventolin Neb Soln) 2.5 mg PRN Q4HRS PRN NEB SHORTNESS OF BREATH; Start 05/06/20 at 16:30 Guaifenesin (Robitussin) 200 mg PRN Q4HRS PRN PO COUGH Last administered on 05/08/20at 00:37; Start 05/06/20 at 16:30 Lorazepam (Ativan) 0.5 mg PRN Q4HRS PRN PO ANXIETY / AGITATION Last administered on 05/07/20at 05:09; Start 05/06/20 at 16:30; Stop 05/07/20 at 15:15; Status DC Enoxaparin Sodium (Lovenox 40mg Syringe) 40 mg Q24H SQ Last administered on 05/06/20at 17:29; Start 05/06/20 at 17:00; Stop 05/07/20 at 10:20; Status DC Azithromycin 500 mg/Sodium Chloride 250 ml @ 250 mls/hr Q24H IV Last administered on 05/09/20at 07:52; Start 05/07/20 at 09:00 Iohexol (Omnipaque 350 Mg/ml) 100 ml 1X ONCE IV Last administered on 05/06/20at 17:04; Start 05/06/20 at 16:45; Stop 05/06/20 at 16:46; Status DC Info (CONTRAST GIVEN -- Rx MONITORING) 1 each PRN DAILY PRN MC SEE COMMENTS; Start 05/06/20 at 16:45; Stop 05/08/20 at 16:44; Status DC Dexamethasone Sodium Phosphate (Decadron) 6 mg BID IVP ; Start 05/07/20 at 09:00; Status UNV Ascorbic Acid (Vitamin C) 500 mg DAILY PO Last administered on 05/09/20at 07:53; Start 05/07/20 at 09:00 Famotidine (Pepcid) 20 mg BID PO Last administered on 05/08/20at 22:20; Start 05/07/20 at 09:00; Stop 05/09/20 at 07:31; Status DC Vitamin D (Vitamin D3) 2,000 unit DAILY PO Last administered on 05/09/20 07:53; Start 05/07/20 at 09:00 Zinc Sulfate (Orazinc) 220 mg DAILY PO Last administered on 05/09/20at 07:52; Start 05/07/20 at 09:00 Labetalol HCl (Normodyne Iv Push) 10 mg PRN Q3HRS PRN IVP HYPERTENSION Last administered on 05/07/20at 18:13; Start 05/07/20 at 08:30 Amlodipine Besylate (Norvasc) 10 mg DAILY PO Last administered on 05/09/20at 07:53; Start 05/07/20 at 09:00 Isosorbide Mononitrate (Imdur) 60 mg DAILY PO ; Start 05/07/20 at 09:00; Stop 05/09/20 at 07:31; Status DC Dexamethasone Sodium Phosphate (Decadron) 6 mg DAILY IVP Last administered on 05/09/20at 07:54; Start 05/08/20 at 09:00 Thiamine HCl 100 mg/Folic Acid 1 mg/Sodium Chloride 1,001.2 ml @ 990.198 mls/hr 1X ONCE IV Last administered on 05/07/20at 12:44; Start 05/07/20 at 10:15; Stop 05/07/20 at 11:15; Status DC Enoxaparin Sodium (Lovenox 40mg Syringe) 40 mg BID SQ Last administered on 05/09/20at 07:51; Start 05/07/20 at 11:00 Lactobacillus Rhamnosus (Culturelle) 1 cap BID PO Last administered on 05/09/20at 07:52; Start 05/07/20 at 21:00 Sterile Water (WATER for RESP) 1,000 ml CONT PRN INH VIA VAPOTHERM DEVICE Last administered on 05/07/20at 21:05; Start 05/07/20 at 12:15 Lorazepam (Ativan Inj) 0.5 mg PRN Q4HRS PRN IVP ANXIETY / AGITATION Last administered on 05/08/20at 01:14; Start 05/07/20 at 15:15 Dexmedetomidine HCl 400 mcg/ Sodium Chloride 100 ml @ 0 mls/hr CONT PRN IV PER PROTOCOL Last administered on 05/09/20at 08:32; Start 05/08/20 at 06:45 Fentanyl Citrate (Fentanyl 2ml Vial) 25 mcg PRN Q1HR PRN IV SEVERE PAIN 7-10; Start 05/08/20 at 06:45 Propofol 100 ml @ As Directed STK-MED ONCE IV ; Start 05/08/20 at 07:19; Stop 05/08/20 at 07:19; Status DC Succinylcholine Chloride (Anectine) 200 mg STK-MED ONCE .ROUTE ; Start 05/08/20 at 07:19; Stop 05/08/20 at 07:20; Status DC Fentanyl Citrate 30 ml @ 0 mls/hr CONT PRN IV SEE PROTOCOL Last administered on 05/08/20at 12:21; Start 05/08/20 at 07:45; Stop 05/08/20 at 13:33; Status DC Propofol 100 ml @ 0 mls/hr CONT PRN IV PER PROTOCOL; Start 05/08/20 at 07:45 Chlorhexidine Gluconate (Peridex) 15 ml BID MM Last administered on 05/08/20at 10:26; Start 05/08/20 at 09:00; Stop 05/09/20 at 07:31; Status DC Midazolam HCl 100 ml @ 0 mls/hr CONT PRN IV SEE PROTOCOL Last administered on 05/09/20at 00:59; Start 05/08/20 at 07:45 Vecuronium [place] (Norcuron Bolus) 10 mg STK-MED ONCE IV ; Start 05/08/20 at 08:21; Stop 05/08/20 at 08:21; Status DC Pantoprazole Sodium (PROTONIX VIAL for IV PUSH) 40 mg DAILYAC IVP Last administered on 05/09/20at 07:51; Start 05/08/20 at 11:00 Vecuronium [place] (Norcuron Bolus) 10 mg 1X ONCE IV Last administered on 05/08/20at 11:07; Start 05/08/20 at 10:00; Stop 05/08/20 at 10:01; Status DC Norepinephrine Bitartrate 8 mg/ Dextrose 258 ml @ 22.736 mls/ hr CONT PRN IV PER PROTOCOL Last administered on 05/08/20at 11:14; Start 05/08/20 at 10:45 Vecuronium [place] (Norcuron Bolus) 5 mg 1X ONCE IV ; Start 05/08/20 at 10:45; Stop 05/08/20 at 10:46; Status Cancel Succinylcholine Chloride (Anectine) 200 mg 1X ONCE IV Last administered on 05/08/20at 11:08; Start 05/08/20 at 10:45; Stop 05/08/20 at 10:46; Status DC Vecuronium [place] (Norcuron Bolus) 6 mg PRN Q4HRS PRN IV AGITATION; Start 05/08/20 at 10:45 Acetaminophen (Tylenol) 650 mg PRN Q4HRS PRN PEG MILD PAIN / TEMP > 100.3'F; Start 05/08/20 at 12:30 Piperacillin Sod/ Tazobactam Sod (Zosyn Per Pharmacy) 1 each PRN DAILY PRN MC SEE COMMENTS; Start 05/08/20 at 13:15 Piperacillin Sod/ Tazobactam Sod 3.375 gm/Sodium Chloride 50 ml @ 100 mls/hr Q6HRS IV Last administered on 05/09/20at 05:50; Start 05/08/20 at 14:00 Fentanyl Citrate 2,750 ml @ 0 mls/hr CONT PRN IV SEE PROTOCOL Last administered on 05/08/20at 13:49; Start 05/08/20 at 13:45; Stop 05/08/20 at 17:54; Status DC Fentanyl Citrate 55 ml @ 0 mls/hr CONT PRN IV SEE PROTOCOL Last administered on 05/09/20at 05:11; Start 05/08/20 at 17:54 Vitals/I & O Vital Sign - Last 24 Hours 05/08/20 05/08/20 05/08/20 05/08/20 10:30 10:45 11:00 11:15 Temp 101.1 101.1 Pulse 96 Resp 30 B/P (MAP) 78/42 (54) 84/44 (57) 134/80 (98) 120/60 (80) Pulse Ox 93 O2 Delivery Ventilator 05/08/20 05/08/20 05/08/20 05/08/20 11:25 11:30 11:45 12:00 Temp 101.1 101.1 Pulse 90 Resp 30 B/P (MAP) 104/56 (72) 100/54 (69) 102/54 (70) Pulse Ox 93 91 O2 Delivery Ventilator Ventilator 05/08/20 05/08/20 05/08/20 05/08/20 12:00 12:00 12:21 12:54 B/P (MAP) Pulse Ox 92 91 O2 Delivery Mechanical Ventilator Ventilator Ventilator 05/08/20 05/08/20 05/08/20 05/08/20 13:00 13:49 14:00 14:20 Temp 100.6 100.0 100.6 100.0 Pulse 85 82 Resp 30 30 B/P (MAP) 121/63 (82) 128/66 (86) Pulse Ox 92 92 93 96 O2 Delivery Ventilator Ventilator Ventilator Ventilator 05/08/20 05/08/20 05/08/20 05/08/20 14:59 15:00 16:00 16:00 Temp 99.3 99.3 Pulse 76 Resp 30 B/P (MAP) 142/72 (95) Pulse Ox 96 96 O2 Delivery Ventilator Ventilator Mechanical Ventilator 05/08/20 05/08/20 05/08/20 05/08/20 16:00 16:30 17:00 18:00 Temp 99.1 99.1 99.0 99.1 99.1 99.0 Pulse 72 72 68 Resp 30 30 30 B/P (MAP) 157/81 (106) 148/74 (98) 155/84 (107) 135/69 (91) Pulse Ox 97 98 98 O2 Delivery Ventilator Ventilator Ventilator 05/08/20 05/08/20 05/08/20 05/08/20 19:00 20:00 20:00 20:00 Temp 98.8 98.8 Pulse 69 Resp 30 B/P (MAP) 131/66 (87) Pulse Ox 99 99 O2 Delivery Ventilator Ventilator Mechanical Ventilator 05/08/20 05/08/20 05/08/20 05/08/20 20:00 21:00 22:00 23:00 Temp 98.8 98.8 Pulse 69 68 68 69 Resp 30 30 30 30 B/P (MAP) 120/61 (80) 122/66 (84) 124/68 (86) 115/63 (80) Pulse Ox 98 98 98 98 O2 Delivery Ventilator Ventilator Ventilator Ventilator 05/08/20 05/09/20 05/09/20 05/09/20 23:59 00:00 00:00 00:01 Temp 98.6 98.6 Pulse 67 Resp 30 B/P (MAP) 119/71 (87) Pulse Ox 99 98 O2 Delivery Mechanical Ventilator Ventilator Ventilator 05/09/20 05/09/20 05/09/20 05/09/20 01:00 02:00 03:00 04:00 Pulse 65 65 62 Resp 30 30 30 B/P (MAP) 140/69 (92) 121/71 (88) 136/80 (98) Pulse Ox 97 98 98 O2 Delivery Ventilator Ventilator Ventilator Mechanical Ventilator 05/09/20 05/09/20 05/09/20 05/09/20 04:00 04:00 04:00 05:00 Temp 98.6 98.6 Pulse 63 64 Resp 30 30 B/P (MAP) 136/79 (98) 128/73 (91) Pulse Ox 98 98 98 O2 Delivery Ventilator Ventilator Ventilator 05/09/20 05/09/20 05/09/20 05/09/20 05:11 06:00 07:00 07:53 Pulse 64 63 66 Resp 30 30 30 B/P (MAP) 124/73 (90) 126/72 (90) 120/62 Pulse Ox 98 98 98 O2 Delivery BiPAP/CPAP Ventilator Ventilator O2 Flow Rate 40.0 05/09/20 05/09/20 05/09/20 05/09/20 08:00 08:00 08:00 09:00 Temp 98.2 98.2 Pulse 68 68 Resp 30 30 B/P (MAP) 107/61 (76) 102/58 (73) Pulse Ox 98 98 O2 Delivery Mechanical Ventilator Ventilator Ventilator 05/09/20 10:00 Pulse 68 Resp 30 B/P (MAP) 108/61 (77) Pulse Ox 95 O2 Delivery Ventilator Intake and Output 05/08/20 05/08/20 05/09/20 15:00 23:00 07:00 Intake Total 30 ml 1843 ml Output Total 240 ml 830 ml 475 ml Balance -210 ml 1013 ml -475 ml Justicifation of Admission Dx: Justifications for Admission: Justification of Admission Dx: Yes Comminuty Aquired Pneumonia: Dehydration DONNY FARIA MD May 09, 2020 10:17
[2020-05-09 10:29] LABS: FIO2 ABG 100% VENT
--- NOTE | 2020-05-09 14:03 | PDOC ---
PROGRESS NOTES Date of Service DATE: 05/09/20 TIME: 14:01 Subjective Subjective Patient seen and evaluated Objective Objective Vital Signs Date Time Temp Pulse Resp B/P (MAP) Pulse Ox O2 Delivery O2 Flow Rate FiO2 05/09/20 13:00 66 30 109/62 (78) 92 Ventilator 05/09/20 12:00 98.6 98.6 05/09/20 05:11 40.0 Intake and Output 05/09/20 07:00 Intake Total 1873 ml Output Total 1545 ml Balance 328 ml IV Total 1873 ml Output Urine Total 1545 ml Physical Exam Physical Exam Visual examination secondary to Covid status. Assessment Assessment Problems Medical Problems: (1) COVID-19 Status: Acute (2) Hyponatremia Status: Acute (3) Respiratory failure Status: Acute (4) Transaminitis Status: Acute Acute respiratory failure with Covid- 19 Pneumonia. Intubated yesterday. Continuing medications and ventilator management as per the pulmonary and ID services. HTN urgency. Hypotensive yesterday. Improved blood pressure today. Continue on present treatment. Mild transaminitis Abdominal pain. Evaluation as above. Reactive sinus tachycardia Comment Review of Relevant I have reviewed the following items kush (where applicable) has been applied. Labs Laboratory Tests Test 05/08/20 09:29 05/09/20 05:40 05/09/20 05:41 05/09/20 08:50 O2 Saturation 85 % (92-99) 96 % (92-99) Arterial Blood pH 7.40 (7.35-7.45) 7.43 (7.35-7.45) Arterial Blood pH (Temp corrected) 7.37 Arterial Blood pCO2 at Patient Temp 39 mmHg (35-46) 38 mmHg (35-46) Arterial Blood pCO2 (Temp correct) 43 mmHg Arterial Blood pO2 at Patient Temp 52 mmHg (75-108) 87 mmHg (75-108) Arterial Blood pO2 (Temp corrected) 60 mmHg Arterial Blood HCO3 24 mmol/L (21-28) 25 mmol/L (21-28) Arterial Blood Base Excess -1 mmol/L (-3-3) 1 mmol/L (-3-3) FiO2 100 100% vent White Blood Count 6.5 x10^3/uL (4.0-11.0) Red Blood Count 3.79 x10^6/uL (4.30-5.70) Hemoglobin 10.7 g/dL (13.0-17.5) Hematocrit 31.9 % (39.0-53.0) Mean Corpuscular Volume 84 fL (79-100) Mean Corpuscular Hemoglobin 28 pg (25-35) Mean Corpuscular Hemoglobin Concent 34 g/dL (31-37) Red Cell Distribution Width 13.6 % (11.5-14.5) Platelet Count 160 x10^3/uL (140-400) Neutrophils (%) (Auto) 81 % (31-73) Lymphocytes (%) (Auto) 12 % (24-48) Monocytes (%) (Auto) 7 % (0-9) Eosinophils (%) (Auto) 0 % (0-3) Basophils (%) (Auto) 0 % (0-3) Neutrophils # (Auto) 5.2 x10^3/uL (1.8-7.7) Lymphocytes # (Auto) 0.8 x10^3/uL (1.0-4.8) Monocytes # (Auto) 0.4 x10^3/uL (0.0-1.1) Eosinophils # (Auto) 0.0 x10^3/uL (0.0-0.7) Basophils # (Auto) 0.0 x10^3/uL (0.0-0.2) Sodium Level 140 mmol/L (136-145) Potassium Level 3.9 mmol/L (3.5-5.1) Chloride Level 106 mmol/L (98-107) Carbon Dioxide Level 24 mmol/L (21-32) Anion Gap 10 (6-14) Blood Urea Nitrogen 18 mg/dL (8-26) Creatinine 0.9 mg/dL (0.7-1.3) Estimated GFR (Cockcroft-Gault) 93.0 BUN/Creatinine Ratio 20 (6-20) Glucose Level 135 mg/dL (70-99) Calcium Level 8.4 mg/dL (8.5-10.1) Total Bilirubin 0.6 mg/dL (0.2-1.0) Aspartate Amino Transf (AST/SGOT) 36 U/L (15-37) Alanine Aminotransferase (ALT/SGPT) 76 U/L (16-63) Alkaline Phosphatase 100 U/L (46-116) Total Protein 5.9 g/dL (6.4-8.2) Albumin 1.8 g/dL (3.4-5.0) Albumin/Globulin Ratio 0.4 (1.0-1.7) Glucose (Fingerstick) 131 mg/dL (70-99) Laboratory Tests Test 05/09/20 05:40 05/09/20 05:41 05/09/20 08:50 White Blood Count 6.5 x10^3/uL (4.0-11.0) Red Blood Count 3.79 x10^6/uL (4.30-5.70) Hemoglobin 10.7 g/dL (13.0-17.5) Hematocrit 31.9 % (39.0-53.0) Mean Corpuscular Volume 84 fL (79-100) Mean Corpuscular Hemoglobin 28 pg (25-35) Mean Corpuscular Hemoglobin Concent 34 g/dL (31-37) Red Cell Distribution Width 13.6 % (11.5-14.5) Platelet Count 160 x10^3/uL (140-400) Neutrophils (%) (Auto) 81 % (31-73) Lymphocytes (%) (Auto) 12 % (24-48) Monocytes (%) (Auto) 7 % (0-9) Eosinophils (%) (Auto) 0 % (0-3) Basophils (%) (Auto) 0 % (0-3) Neutrophils # (Auto) 5.2 x10^3/uL (1.8-7.7) Lymphocytes # (Auto) 0.8 x10^3/uL (1.0-4.8) Monocytes # (Auto) 0.4 x10^3/uL (0.0-1.1) Eosinophils # (Auto) 0.0 x10^3/uL (0.0-0.7) Basophils # (Auto) 0.0 x10^3/uL (0.0-0.2) Sodium Level 140 mmol/L (136-145) Potassium Level 3.9 mmol/L (3.5-5.1) Chloride Level 106 mmol/L (98-107) Carbon Dioxide Level 24 mmol/L (21-32) Anion Gap 10 (6-14) Blood Urea Nitrogen 18 mg/dL (8-26) Creatinine 0.9 mg/dL (0.7-1.3) Estimated GFR (Cockcroft-Gault) 93.0 BUN/Creatinine Ratio 20 (6-20) Glucose Level 135 mg/dL (70-99) Calcium Level 8.4 mg/dL (8.5-10.1) Total Bilirubin 0.6 mg/dL (0.2-1.0) Aspartate Amino Transf (AST/SGOT) 36 U/L (15-37) Alanine Aminotransferase (ALT/SGPT) 76 U/L (16-63) Alkaline Phosphatase 100 U/L (46-116) Total Protein 5.9 g/dL (6.4-8.2) Albumin 1.8 g/dL (3.4-5.0) Albumin/Globulin Ratio 0.4 (1.0-1.7) Glucose (Fingerstick) 131 mg/dL (70-99) O2 Saturation 96 % (92-99) Arterial Blood pH 7.43 (7.35-7.45) Arterial Blood pCO2 at Patient Temp 38 mmHg (35-46) Arterial Blood pO2 at Patient Temp 87 mmHg (75-108) Arterial Blood HCO3 25 mmol/L (21-28) Arterial Blood Base Excess 1 mmol/L (-3-3) FiO2 100% vent Microbiology 05/06/20 Urine Culture - Final, Complete 05/06/20 Blood Culture - Preliminary, Resulted NO GROWTH AFTER 2 DAYS Medications Current Medications Levofloxacin/ Dextrose 150 ml @ 100 mls/hr 1X ONCE IV Last administered on 05/06/20at 15:25; Start 05/06/20 at 15:00; Stop 05/06/20 at 16:29; Status DC Methylprednisolone Sodium Succinate (SOLU-Medrol 125MG VIAL) 125 mg 1X ONCE IV Last administered on 05/06/20at 15:24; Start 05/06/20 at 15:00; Stop 05/06/20 at 15:01; Status DC Sodium Chloride 1,000 ml @ 1,000 mls/hr 1X ONCE IV Last administered on 05/06/20at 15:25; Start 05/06/20 at 15:00; Stop 05/06/20 at 15:59; Status DC Acetaminophen (Tylenol) 1,000 mg 1X ONCE PO Last administered on 05/06/20at 16:21; Start 05/06/20 at 16:15; Stop 05/06/20 at 16:16; Status DC Dexamethasone Sodium Phosphate (Decadron) 6 mg BID IVP Last administered on 05/07/20at 08:41; Start 05/06/20 at 21:00; Stop 05/07/20 at 10:06; Status DC Ceftriaxone Sodium (Rocephin) 1 gm Q24H IVP Last administered on 05/07/20at 17:25; Start 05/06/20 at 17:00; Stop 05/08/20 at 13:18; Status DC Azithromycin 250 ml @ 250 mls/hr 1X ONCE IV ; Start 05/06/20 at 16:30; Stop 05/06/20 at 17:29; Status Cancel Ceftriaxone Sodium (Rocephin) 1 gm DAILY08 IVP ; Start 05/07/20 at 08:00; Status UNV Sodium Chloride (Normal Saline Flush) 3 ml QSHIFT PRN IV AFTER MEDS AND BLOOD DRAWS; Start 05/06/20 at 16:30 Sodium Chloride 1,000 ml @ 120 mls/hr Q8H20M IV Last administered on 05/09/20at 08:31; Start 05/06/20 at 16:30 Ondansetron HCl (Zofran) 4 mg PRN Q4HRS PRN IV NAUSEA/VOMITING; Start 05/06/20 at 16:30 Acetaminophen (Tylenol) 650 mg PRN Q4HRS PRN PO TEMP OVER 100.4F OR MILD PAIN Last administered on 05/08/20at 10:26; Start 05/06/20 at 16:30; Stop 05/08/20 at 12:29; Status DC Al Hydroxide/Mg Hydroxide (Mylanta Plus Xs) 30 ml PRN DAILY PRN PO HEARTBURN / GAS; Start 05/06/20 at 16:30 Clonidine HCl (Catapres) 0.1 mg PRN Q6HRS PRN PO SBP>160 OR DBP>90 Last administered on 05/07/20at 21:03; Start 05/06/20 at 16:30 Sodium Monofluorophosphate (Fleet Adult) 133 ml PRN DAILY PRN WI CONSTIPATION; Start 05/06/20 at 16:30 Docusate Sodium (Colace) 100 mg PRN BID PRN PO HARD STOOLS; Start 05/06/20 at 16:30 Albuterol Sulfate (Ventolin Neb Soln) 2.5 mg PRN Q4HRS PRN NEB SHORTNESS OF BREATH; Start 05/06/20 at 16:30 Guaifenesin (Robitussin) 200 mg PRN Q4HRS PRN PO COUGH Last administered on 05/08/20at 00:37; Start 05/06/20 at 16:30 Lorazepam (Ativan) 0.5 mg PRN Q4HRS PRN PO ANXIETY / AGITATION Last administered on 05/07/20at 05:09; Start 05/06/20 at 16:30; Stop 05/07/20 at 15:15; Status DC Enoxaparin Sodium (Lovenox 40mg Syringe) 40 mg Q24H SQ Last administered on 05/06/20at 17:29; Start 05/06/20 at 17:00; Stop 05/07/20 at 10:20; Status DC Azithromycin 500 mg/Sodium Chloride 250 ml @ 250 mls/hr Q24H IV Last administered on 05/09/20 07:52; Start 05/07/20 at 09:00 Iohexol (Omnipaque 350 Mg/ml) 100 ml 1X ONCE IV Last administered on 05/06/20at 17:04; Start 05/06/20 at 16:45; Stop 05/06/20 at 16:46; Status DC Info (CONTRAST GIVEN -- Rx MONITORING) 1 each PRN DAILY PRN MC SEE COMMENTS; Start 05/06/20 at 16:45; Stop 05/08/20 at 16:44; Status DC Dexamethasone Sodium Phosphate (Decadron) 6 mg BID IVP ; Start 05/07/20 at 09:00; Status UNV Ascorbic Acid (Vitamin C) 500 mg DAILY PO Last administered on 05/09/20 07:53; Start 05/07/20 at 09:00 Famotidine (Pepcid) 20 mg BID PO Last administered on 05/08/20 22:20; Start 05/07/20 at 09:00; Stop 05/09/20 at 07:31; Status DC Vitamin D (Vitamin D3) 2,000 unit DAILY PO Last administered on 05/09/20 07:53; Start 05/07/20 at 09:00 Zinc Sulfate (Orazinc) 220 mg DAILY PO Last administered on 05/09/20 07:52; Start 05/07/20 at 09:00 Labetalol HCl (Normodyne Iv Push) 10 mg PRN Q3HRS PRN IVP HYPERTENSION Last administered on 05/07/20at 18:13; Start 05/07/20 at 08:30 Amlodipine Besylate (Norvasc) 10 mg DAILY PO Last administered on 05/09/20at 0 7:53; Start 05/07/20 at 09:00 Isosorbide Mononitrate (Imdur) 60 mg DAILY PO ; Start 05/07/20 at 09:00; Stop 05/09/20 at 07:31; Status DC Dexamethasone Sodium Phosphate (Decadron) 6 mg DAILY IVP Last administered on 05/09/20at 07:54; Start 05/08/20 at 09:00 Thiamine HCl 100 mg/Folic Acid 1 mg/Sodium Chloride 1,001.2 ml @ 990.198 mls/hr 1X ONCE IV Last administered on 05/07/20at 12:44; Start 05/07/20 at 10:15; Stop 05/07/20 at 11:15; Status DC Enoxaparin Sodium (Lovenox 40mg Syringe) 40 mg BID SQ Last administered on 05/09/20at 07:51; Start 05/07/20 at 11:00 Lactobacillus Rhamnosus (Culturelle) 1 cap BID PO Last administered on 05/09/20at 07:52; Start 05/07/20 at 21:00 Sterile Water (WATER for RESP) 1,000 ml CONT PRN INH VIA VAPOTHERM DEVICE Last administered on 05/07/20at 21:05; Start 05/07/20 at 12:15 Lorazepam (Ativan Inj) 0.5 mg PRN Q4HRS PRN IVP ANXIETY / AGITATION Last a dministered on 05/08/20at 01:14; Start 05/07/20 at 15:15 Dexmedetomidine HCl 400 mcg/ Sodium Chloride 100 ml @ 0 mls/hr CONT PRN IV PER PROTOCOL Last administered on 05/09/20at 08:32; Start 05/08/20 at 06:45 Fentanyl Citrate (Fentanyl 2ml Vial) 25 mcg PRN Q1HR PRN IV SEVERE PAIN 7-10; Start 05/08/20 at 06:45 Propofol 100 ml @ As Directed STK-MED ONCE IV ; Start 05/08/20 at 07:19; Stop 05/08/20 at 07:19; Status DC Succinylcholine Chloride (Anectine) 200 mg STK-MED ONCE .ROUTE ; Start 05/08/20 at 07:19; Stop 05/08/20 at 07:20; Status DC Fentanyl Citrate 30 ml @ 0 mls/hr CONT PRN IV SEE PROTOCOL Last administered on 05/08/20at 12:21; Start 05/08/20 at 07:45; Stop 05/08/20 at 13:33; Status DC Propofol 100 ml @ 0 mls/hr CONT PRN IV PER PROTOCOL; Start 05/08/20 at 07:45 Chlorhexidine Gluconate (Peridex) 15 ml BID MM Last administered on 05/08/20at 10:26; Start 05/08/20 at 09:00; Stop 05/09/20 at 07:31; Status DC Midazolam HCl 100 ml @ 0 mls/hr CONT PRN IV SEE PROTOCOL Last administered on 05/09/20at 11:35; Start 05/08/20 at 07:45 Vecuronium [place] (Norcuron Bolus) 10 mg STK-MED ONCE IV ; Start 05/08/20 at 08:21; Stop 05/08/20 at 08:21; Status DC Pantoprazole Sodium (PROTONIX VIAL for IV PUSH) 40 mg DAILYAC IVP Last administered on 05/09/20at 07:51; Start 05/08/20 at 11:00 Vecuronium [place] (Norcuron Bolus) 10 mg 1X ONCE IV Last administered on 05/08/20at 11:07; Start 05/08/20 at 10:00; Stop 05/08/20 at 10:01; Status DC Norepinephrine Bitartrate 8 mg/ Dextrose 258 ml @ 22.736 mls/ hr CONT PRN IV PER PROTOCOL Last administered on 05/08/20at 11:14; Start 05/08/20 at 10:45 Vecuronium [place] (Norcuron Bolus) 5 mg 1X ONCE IV ; Start 05/08/20 at 10:45; Stop 05/08/20 at 10:46; Status Cancel Succinylcholine Chloride (Anectine) 200 mg 1X ONCE IV Last administered on 05/08/20at 11:08; Start 05/08/20 at 10:45; Stop 05/08/20 at 10:46; Status DC Vecuronium [place] (Norcuron Bolus) 6 mg PRN Q4HRS PRN IV AGITATION; Start 05/08/20 at 10:45 Acetaminophen (Tylenol) 650 mg PRN Q4HRS PRN PEG MILD PAIN / TEMP > 100.3'F; Start 05/08/20 at 12:30 Piperacillin Sod/ Tazobactam Sod (Zosyn Per Pharmacy) 1 each PRN DAILY PRN MC SEE COMMENTS; Start 05/08/20 at 13:15 Piperacillin Sod/ Tazobactam Sod 3.375 gm/Sodium Chloride 50 ml @ 100 mls/hr Q6HRS IV Last administered on 05/09/20at 11:33; Start 05/08/20 at 14:00 Fentanyl Citrate 2,750 ml @ 0 mls/hr CONT PRN IV SEE PROTOCOL Last administered on 05/08/20at 13:49; Start 05/08/20 at 13:45; Stop 05/08/20 at 17:54; Status DC Fentanyl Citrate 55 ml @ 0 mls/hr CONT PRN IV SEE PROTOCOL Last administered on 05/09/20at 05:11; Start 05/08/20 at 17:54 Vitals/I & O Vital Sign - Last 24 Hours 05/08/20 05/08/20 05/08/20 05/08/20 14:20 14:59 15:00 16:00 Temp 99.3 99.3 Pulse 76 Resp 30 B/P (MAP) 142/72 (95) Pulse Ox 96 96 96 O2 Delivery Ventilator Ventilator Ventilator 05/08/20 05/08/20 05/08/20 05/08/20 16:00 16:00 16:30 17:00 Temp 99.1 99.1 99.1 99.1 Pulse 72 72 Resp 30 30 B/P (MAP) 157/81 (106) 148/74 (98) 155/84 (107) Pulse Ox 97 98 O2 Delivery Mechanical Ventilator Ventilator Ventilator 05/08/20 05/08/20 05/08/20 05/08/20 18:00 19:00 20:00 20:00 Temp 99.0 98.8 99.0 98.8 Pulse 68 69 Resp 30 30 B/P (MAP) 135/69 (91) 131/66 (87) Pulse Ox 98 99 99 O2 Delivery Ventilator Ventilator Ventilator 05/08/20 05/08/20 05/08/20 05/08/20 20:00 20:00 21:00 22:00 Temp 98.8 98.8 Pulse 69 68 68 Resp 30 30 30 B/P (MAP) 120/61 (80) 122/66 (84) 124/68 (86) Pulse Ox 98 98 98 O2 Delivery Mechanical Ventilator Ventilator Ventilator Ventilator 05/08/20 05/08/20 05/09/20 05/09/20 23:00 23:59 00:00 00:00 Pulse 69 Resp 30 B/P (MAP) 115/63 (80) Pulse Ox 98 99 O2 Delivery Ventilator Mechanical Ventilator Ventilator 05/09/20 05/09/20 05/09/20 05/09/20 00:01 01:00 02:00 03:00 Temp 98.6 98.6 Pulse 67 65 65 62 Resp 30 30 30 30 B/P (MAP) 119/71 (87) 140/69 (92) 121/71 (88) 136/80 (98) Pulse Ox 98 97 98 98 O2 Delivery Ventilator Ventilator Ventilator Ventilator 05/09/20 05/09/20 05/09/20 05/09/20 04:00 04:00 04:00 04:00 Temp 98.6 98.6 Pulse 63 Resp 30 B/P (MAP) 136/79 (98) Pulse Ox 98 98 O2 Delivery Mechanical Ventilator Ventilator Ventilator 05/09/20 05/09/20 05/09/20 05/09/20 05:00 05:11 06:00 07:00 Pulse 64 64 63 Resp 30 30 30 30 B/P (MAP) 128/73 (91) 124/73 (90) 126/72 (90) Pulse Ox 98 98 98 98 O2 Delivery Ventilator BiPAP/CPAP Ventilator Ventilator O2 Flow Rate 40.0 05/09/20 05/09/20 05/09/20 05/09/20 07:53 08:00 08:00 08:00 Temp 98.2 98.2 Pulse 66 68 Resp 30 B/P (MAP) 120/62 107/61 (76) Pulse Ox 98 O2 Delivery Mechanical Ventilator Ventilator 05/09/20 05/09/20 05/09/20 05/09/20 09:00 10:00 11:00 11:44 Pulse 68 68 66 Resp 30 30 30 B/P (MAP) 102/58 (73) 108/61 (77) 109/62 (78) Pulse Ox 98 95 94 O2 Delivery Ventilator Ventilator Ventilator Mechanical Ventilator 05/09/20 05/09/20 05/09/20 12:00 12:00 13:00 Temp 98.6 98.6 Pulse 66 66 Resp 30 30 B/P (MAP) 107/63 (78) 109/62 (78) Pulse Ox 93 92 O2 Delivery Ventilator Ventilator Intake and Output 05/08/20 05/08/20 05/09/20 15:00 23:00 07:00 Intake Total 30 ml 1843 ml Output Total 240 ml 830 ml 475 ml Balance -210 ml 1013 ml -475 ml Justifications for Admission General Conditions Poss tachycardia?: Yes Justification for admission: Patient has tachycardia (> 100 beats per minute) which is not readily corrected by appropriate treatment within 12 to 24 hours. acute hypoxic resp failure Other Justification NAMRATA ROYAL MD May 09, 2020 14:02
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
[2020-05-10] VITALS (24 sets, daily range): BP systolic 109–138; BP diastolic 57–80
[2020-05-10] MEDS: DEXMEDETOMIDINE 400 MCG in IV NORMAL SALINE 100ML 96 ML IV PRN ×5 (02:29→21:40)
[2020-05-10] MEDS: IV NORMAL SALINE 1000ML BAG 1,000 ML IV SCH ×3 (03:49→23:59)
[2020-05-10] MEDS: PIPERACILLIN/TAZOBACTAM 3.375 GM in IV NORMAL SALINE 50ML 50 ML IV SCH ×4 (06:40→23:58)
[2020-05-10] MEDS: PANTOPRAZOLE IV PUSH 40 MG VIAL. IVP SCH (07:06)
[2020-05-10] MEDS: ENOXAPARIN 40 MG/0.4 ML SYRINGE. SQ SCH ×2 (07:06→21:39)
[2020-05-10] MEDS: AZITHROMYCIN 500 MG in IV NORMAL SALINE 250ML 250 ML IV SCH (07:07)
[2020-05-10] MEDS: ASCORBIC ACID 500 MG TABLET PO SCH (07:07)
[2020-05-10] MEDS: ZINC SULFATE 220 MG CAPSULE. PO SCH (07:07)
[2020-05-10] MEDS: LACTOBACILLUS RHAMNOSUS GG 1 CAPSULE. PO SCH ×2 (07:08→21:39)
[2020-05-10] MEDS: CHOLECALCIFEROL (VITAMIN D3) 1,000 UNIT TABLET PO SCH (07:08)
[2020-05-10] MEDS: DEXAMETHASONE SOD PHOS 4 MG/ML VIAL IVP SCH (07:09)
[2020-05-10] MEDS: MIDAZOLAM 100mg/100ml NS BAG 100 ML IV PRN ×2 (07:09→19:49)
[2020-05-10] MEDS: amLODIPine BESYLATE 10 MG TABLET PO SCH (07:09)
[2020-05-10] MEDS: ACETAMINOPHEN 650 MG/20.3 ML SOLUTION. PEG PRN (07:18)
[2020-05-10 08:01] LABS: BASE EXCESS ABG 1 mmol/L (-3-3); HCO3 ABG 26 mmol/L (21-28); PCO2 ABG 45 mmHg (35-46); PO2 ABG 54 mmHg (75-108); SAT O2 ABG 86 % (92-99)
[2020-05-10 08:05] LABS: FIO2 ABG 100%
[2020-05-10] MEDS ORDERED: VECURONIUM BOLUS 10 MG VIAL. IV PRN (09:45)
[2020-05-10] MEDS: VECURONIUM BROMIDE 50 MG in TOTAL VOLUME 50 ML IV PRN ×3 (10:14→21:40)
--- NOTE | 2020-05-10 10:49 | PDOC ---
PROGRESS NOTES Date of Service: DATE: 05/10/20 TIME: 10:49 Chief Complaint Chief Complaint VTE Prophylaxis Ordered VTE Prophylaxis Devices: Yes VTE Pharmacological Prophylaxi: Yes Assessment/Plan Assessment/Plan Impression: Primary Impression: Fever secondary to viremia , sepsis Transaminitis Hyponatremia Acute hypoxic respiratory failure Extensive infiltrates throughout BILATERAL lung lord, concerning for covid/ SARS morbid obesity dvt prophylaxis, lovenox tobacco abuse disorder uncontrolled hypertension Intubated 2/2 respiratory decompensation Fever and tachycardia Remains vent 100% and PEEP of 12 prominent air-filled bowel throughout the visualized upper abdomen which are similar compared to the prior study. MORBID OBESITY plan admit blood cultures icu bed emperic iv antibiotics consult pulmonary follow lytes gi prophylaxis iv labetalol 5-10mg q 3 hrs prn bp support iv decadron 6 mg bid pepsid 20mg po bid zinc 220mg po daily, vitamin c, vitamin D SPUTUM CULTURE ID CONSULT IV ZOSYN TPN FiO2 100% PEEP of 12 40 min cc time History of Present Illness History of Present Illness Identification/Chief Complaint Chief Complaint seen in er with acute resp distress, known COVID POSITIVE 40-year-old male who arrives ambulatory to the emergency department complaining progressive difficulty breathing., breathing today has become considerably more labored than it has in the past 2 days. Patient reports on 05-04 he was diagnosed with coronavirus. TEMP on arrival 103.2 F abg c/w resp alkalosis and hypoxia he has become progressively more short of breath and states he has mild chest tightness. HYPOXIC, alert and ill-appearing. Past Medical History Past Medical History Past Medical History Past Medical History Past Medical History: Hypertension, Pneumonia Past Surgical History: Other Additional Past Surgical Histo: KNEE SURGERY, BROKEN RIGHT ARM WITH SURGERY Smoking Status: Current Some Day Smoker Alcohol Use: Occasionally FHX COPD, OBESITY Family History Family History: Hypertension Social History Smoke: <1 pack per day ALCOHOL: none Drugs: None Current Problem List Problem List Problems Medical Problems: (1) COVID-19 Status: Acute (2) Respiratory failure Status: Acute Vitals Vitals Vital Signs Date Time Temp Pulse Resp B/P (MAP) Pulse Ox O2 Delivery O2 Flow Rate FiO2 05/10/20 10:00 75 30 109/59 (76) 80 Ventilator 05/10/20 08:00 100.4 100.4 05/09/20 22:09 40.0 Physical Exam Physical Exam Constitutional: SEDATED ON VENT[] HENT: Normocephalic, atraumatic, bilateral external ears normal, oropharynx moist, no oral exudates, nose normal. [] Eyes: PERRLA, EOMI, conjunctiva normal, no discharge. [] Neck: Normal range of motion, no tenderness, supple, no stridor. [] Cardiovascular: Tachycardia. no murmur [] Lungs & Thorax: tachypnea , crackles , bilaterally. Abdomen: Bowel sounds normal, soft, no tenderness, no masses, no pulsatile masses. [] Skin: Warm, dry, no erythema, no rash. [] Back: No tenderness, no CVA tenderness. [] Extremities: No tenderness, no cyanosis, no clubbing, ROM intact, no edema. [] Neurologic: Alert and oriented X 3, normal motor function, normal sensory function, no focal deficits noted. [] Heart: RRR, no gallops, no murmurs Breasts: Not examined Abdomen: Soft, No tenderness Rectal Exam: not examined PELVIC: Examination not indicated Extremities: No cyanosis Neuro: Cranial nerves 3-12 NL General: No acute distress Heart: Regular rate (SR), Other (distant heart sounds) Abdomen: Other (distended and firm) Extremities: No clubbing, No cyanosis, Other (trace LE edema) Skin: No breakdown, No significant lesion Labs LABS Laboratory Tests Test 05/10/20 08:00 O2 Saturation 86 % (92-99) Arterial Blood pH 7.38 (7.35-7.45) Arterial Blood pCO2 at Patient Temp 45 mmHg (35-46) Arterial Blood pO2 at Patient Temp 54 mmHg (75-108) Arterial Blood HCO3 26 mmol/L (21-28) Arterial Blood Base Excess 1 mmol/L (-3-3) FiO2 100% Assessment and Plan Assessmemt and Plan Problems Medical Problems: (1) COVID-19 Status: Acute (2) Hyponatremia Status: Acute (3) Respiratory failure Status: Acute (4) Transaminitis Status: Acute Comment Review of Relevant I have reviewed the following items kush (where applicable) has been applied. Labs Laboratory Tests Test 05/09/20 05:40 05/09/20 05:41 05/09/20 08:50 05/10/20 08:00 White Blood Count 6.5 x10^3/uL (4.0-11.0) Red Blood Count 3.79 x10^6/uL (4.30-5.70) Hemoglobin 10.7 g/dL (13.0-17.5) Hematocrit 31.9 % (39.0-53.0) Mean Corpuscular Volume 84 fL (79-100) Mean Corpuscular Hemoglobin 28 pg (25-35) Mean Corpuscular Hemoglobin Concent 34 g/dL (31-37) Red Cell Distribution Width 13.6 % (11.5-14.5) Platelet Count 160 x10^3/uL (140-400) Neutrophils (%) (Auto) 81 % (31-73) Lymphocytes (%) (Auto) 12 % (24-48) Monocytes (%) (Auto) 7 % (0-9) Eosinophils (%) (Auto) 0 % (0-3) Basophils (%) (Auto) 0 % (0-3) Neutrophils # (Auto) 5.2 x10^3/uL (1.8-7.7) Lymphocytes # (Auto) 0.8 x10^3/uL (1.0-4.8) Monocytes # (Auto) 0.4 x10^3/uL (0.0-1.1) Eosinophils # (Auto) 0.0 x10^3/uL (0.0-0.7) Basophils # (Auto) 0.0 x10^3/uL (0.0-0.2) Sodium Level 140 mmol/L (136-145) Potassium Level 3.9 mmol/L (3.5-5.1) Chloride Level 106 mmol/L (98-107) Carbon Dioxide Level 24 mmol/L (21-32) Anion Gap 10 (6-14) Blood Urea Nitrogen 18 mg/dL (8-26) Creatinine 0.9 mg/dL (0.7-1.3) Estimated GFR (Cockcroft-Gault) 93.0 BUN/Creatinine Ratio 20 (6-20) Glucose Level 135 mg/dL (70-99) Calcium Level 8.4 mg/dL (8.5-10.1) Total Bilirubin 0.6 mg/dL (0.2-1.0) Aspartate Amino Transf (AST/SGOT) 36 U/L (15-37) Alanine Aminotransferase (ALT/SGPT) 76 U/L (16-63) Alkaline Phosphatase 100 U/L (46-116) Total Protein 5.9 g/dL (6.4-8.2) Albumin 1.8 g/dL (3.4-5.0) Albumin/Globulin Ratio 0.4 (1.0-1.7) Glucose (Fingerstick) 131 mg/dL (70-99) O2 Saturation 96 % (92-99) 86 % (92-99) Arterial Blood pH 7.43 (7.35-7.45) 7.38 (7.35-7.45) Arterial Blood pCO2 at Patient Temp 38 mmHg (35-46) 45 mmHg (35-46) Arterial Blood pO2 at Patient Temp 87 mmHg (75-108) 54 mmHg (75-108) Arterial Blood HCO3 25 mmol/L (21-28) 26 mmol/L (21-28) Arterial Blood Base Excess 1 mmol/L (-3-3) 1 mmol/L (-3-3) FiO2 100% vent 100% Laboratory Tests Test 05/10/20 08:00 O2 Saturation 86 % (92-99) Arterial Blood pH 7.38 (7.35-7.45) Arterial Blood pCO2 at Patient Temp 45 mmHg (35-46) Arterial Blood pO2 at Patient Temp 54 mmHg (75-108) Arterial Blood HCO3 26 mmol/L (21-28) Arterial Blood Base Excess 1 mmol/L (-3-3) FiO2 100% Microbiology 05/08/20 Gram Stain Evaluation - Final, Resulted 05/08/20 Respiratory Culture - Preliminary, Resulted 05/06/20 Urine Culture - Final, Complete 05/06/20 Blood Culture - Preliminary, Resulted NO GROWTH AFTER 3 DAYS Medications Current Medications Levofloxacin/ Dextrose 150 ml @ 100 mls/hr 1X ONCE IV Last administered on 05/06/20at 15:25; Start 05/06/20 at 15:00; Stop 05/06/20 at 16:29; Status DC Methylprednisolone Sodium Succinate (SOLU-Medrol 125MG VIAL) 125 mg 1X ONCE IV Last administered on 05/06/20at 15:24; Start 05/06/20 at 15:00; Stop 05/06/20 at 15:01; Status DC Sodium Chloride 1,000 ml @ 1,000 mls/hr 1X ONCE IV Last administered on 05/06/20at 15:25; Start 05/06/20 at 15:00; Stop 05/06/20 at 15:59; Status DC Acetaminophen (Tylenol) 1,000 mg 1X ONCE PO Last administered on 05/06/20at 16:21; Start 05/06/20 at 16:15; Stop 05/06/20 at 16:16; Status DC Dexamethasone Sodium Phosphate (Decadron) 6 mg BID IVP Last administered on 05/07/20at 08:41; Start 05/06/20 at 21:00; Stop 05/07/20 at 10:06; Status DC Ceftriaxone Sodium (Rocephin) 1 gm Q24H IVP Last administered on 05/07/20at 17:25; Start 05/06/20 at 17:00; Stop 05/08/20 at 13:18; Status DC Azithromycin 250 ml @ 250 mls/hr 1X ONCE IV ; Start 05/06/20 at 16:30; Stop 05/06/20 at 17:29; Status Cancel Ceftriaxone Sodium (Rocephin) 1 gm DAILY08 IVP ; Start 05/07/20 at 08:00; Status UNV Sodium Chloride (Normal Saline Flush) 3 ml QSHIFT PRN IV AFTER MEDS AND BLOOD DRAWS; Start 05/06/20 at 16:30 Sodium Chloride 1,000 ml @ 120 mls/hr Q8H20M IV Last administered on 05/10/20at 03:49; Start 05/06/20 at 16:30 Ondansetron HCl (Zofran) 4 mg PRN Q4HRS PRN IV NAUSEA/VOMITING; Start 05/06/20 at 16:30 Acetaminophen (Tylenol) 650 mg PRN Q4HRS PRN PO TEMP OVER 100.4F OR MILD PAIN Last administered on 05/08/20at 10:26; Start 05/06/20 at 16:30; Stop 05/08/20 at 12:29; Status DC Al Hydroxide/Mg Hydroxide (Mylanta Plus Xs) 30 ml PRN DAILY PRN PO HEARTBURN / GAS; Start 05/06/20 at 16:30 Clonidine HCl (Catapres) 0.1 mg PRN Q6HRS PRN PO SBP>160 OR DBP>90 Last administered on 05/07/20at 21:03; Start 05/06/20 at 16:30 Sodium Monofluorophosphate (Fleet Adult) 133 ml PRN DAILY PRN [place] CONSTIPATION; Start 05/06/20 at 16:30 Docusate Sodium (Colace) 100 mg PRN BID PRN PO HARD STOOLS; Start 05/06/20 at 16:30 Albuterol Sulfate (Ventolin Neb Soln) 2.5 mg PRN Q4HRS PRN NEB SHORTNESS OF BREATH; Start 05/06/20 at 16:30 Guaifenesin (Robitussin) 200 mg PRN Q4HRS PRN PO COUGH Last administered on 05/08/20at 00:37; Start 05/06/20 at 16:30 Lorazepam (Ativan) 0.5 mg PRN Q4HRS PRN PO ANXIETY / AGITATION Last administered on 05/07/20at 05:09; Start 05/06/20 at 16:30; Stop 05/07/20 at 15:15; Status DC Enoxaparin Sodium (Lovenox 40mg Syringe) 40 mg Q24H SQ Last administered on 05/06/20at 17:29; Start 05/06/20 at 17:00; Stop 05/07/20 at 10:20; Status DC Azithromycin 500 mg/Sodium Chloride 250 ml @ 250 mls/hr Q24H IV Last administered on 05/10/20at 07:07; Start 05/07/20 at 09:00 Iohexol (Omnipaque 350 Mg/ml) 100 ml 1X ONCE IV Last administered on 05/06/20at 17:04; Start 05/06/20 at 16:45; Stop 05/06/20 at 16:46; Status DC Info (CONTRAST GIVEN -- Rx MONITORING) 1 each PRN DAILY PRN MC SEE COMMENTS; Start 05/06/20 at 16:45; Stop 05/08/20 at 16:44; Status DC Dexamethasone Sodium Phosphate (Decadron) 6 mg BID IVP ; Start 05/07/20 at 09:00; Status UNV Ascorbic Acid (Vitamin C) 500 mg DAILY PO Last administered on 05/10/20at 07:07; Start 05/07/20 at 09:00 Famotidine (Pepcid) 20 mg BID PO Last administered on 05/08/20at 22:20; Start 05/07/20 at 09:00; Stop 05/09/20 at 07:31; Status DC Vitamin D (Vitamin D3) 2,000 unit DAILY PO Last administered on 05/10/20 07:08; Start 05/07/20 at 09:00 Zinc Sulfate (Orazinc) 220 mg DAILY PO Last administered on 05/10/20 07:07; S tart 05/07/20 at 09:00 Labetalol HCl (Normodyne Iv Push) 10 mg PRN Q3HRS PRN IVP HYPERTENSION Last administered on 05/07/20at 18:13; Start 05/07/20 at 08:30 Amlodipine Besylate (Norvasc) 10 mg DAILY PO Last administered on 05/10/20 07:09; Start 05/07/20 at 09:00 Isosorbide Mononitrate (Imdur) 60 mg DAILY PO ; Start 05/07/20 at 09:00; Stop 05/09/20 at 07:31; Status DC Dexamethasone Sodium Phosphate (Decadron) 6 mg DAILY IVP Last administered on 05/10/20 07:09; Start 05/08/20 at 09:00 Thiamine HCl 100 mg/Folic Acid 1 mg/Sodium Chloride 1,001.2 ml @ 990.198 mls/hr 1X ONCE IV Last administered on 05/07/20at 12:44; Start 05/07/20 at 10:15; Stop 05/07/20 at 11:15; Status DC Enoxaparin Sodium (Lovenox 40mg Syringe) 40 mg BID SQ Last administered on 07:06; Start 05/07/20 at 11:00 Lactobacillus Rhamnosus (Culturelle) 1 cap BID PO Last administered on 05/10/20 07:08; Start 05/07/20 at 21:00 Sterile Water (WATER for RESP) 1,000 ml CONT PRN INH VIA VAPOTHERM DEVICE Last administered on 05/07/20at 21:05; Start 05/07/20 at 12:15 Lorazepam (Ativan Inj) 0.5 mg PRN Q4HRS PRN IVP ANXIETY / AGITATION Last administered on 05/08/20at 01:14; Start 05/07/20 at 15:15 Dexmedetomidine HCl 400 mcg/ Sodium Chloride 100 ml @ 0 mls/hr CONT PRN IV PER PROTOCOL Last administered on 05/10/20at 07:10; Start 05/08/20 at 06:45 Fentanyl Citrate (Fentanyl 2ml Vial) 25 mcg PRN Q1HR PRN IV SEVERE PAIN 7-10; Start 05/08/20 at 06:45 Propofol 100 ml @ As Directed STK-MED ONCE IV ; Start 05/08/20 at 07:19; Stop 05/08/20 at 07:19; Status DC Succinylcholine Chloride (Anectine) 200 mg STK-MED ONCE .ROUTE ; Start 05/08/20 at 07:19; Stop 05/08/20 at 07:20; Status DC Fentanyl Citrate 30 ml @ 0 mls/hr CONT PRN IV SEE PROTOCOL Last administered on 05/08/20at 12:21; Start 05/08/20 at 07:45; Stop 05/08/20 at 13:33; Status DC Propofol 100 ml @ 0 mls/hr CONT PRN IV PER PROTOCOL; Start 05/08/20 at 07:45 Chlorhexidine Gluconate (Peridex) 15 ml BID MM Last administered on 05/08/20at 10:26; Start 05/08/20 at 09:00; Stop 05/09/20 at 07:31; Status DC Midazolam HCl 100 ml @ 0 mls/hr CONT PRN IV SEE PROTOCOL Last administered on 05/10/20at 07:09; Start 05/08/20 at 07:45 Vecuronium Jeffrey (Norcuron Bolus) 10 mg STK-MED ONCE IV ; Start 05/08/20 at 08:21; Stop 05/08/20 at 08:21; Status DC Pantoprazole Sodium (PROTONIX VIAL for IV PUSH) 40 mg DAILYAC IVP Last administered on 05/10/20at 07:06; Start 05/08/20 at 11:00 Vecuronium Jeffrey (Norcuron Bolus) 10 mg 1X ONCE IV Last administered on 05/08/20at 11:07; Start 05/08/20 at 10:00; Stop 05/08/20 at 10:01; Status DC Norepinephrine Bitartrate 8 mg/ Dextrose 258 ml @ 22.736 mls/ hr CONT PRN IV PER PROTOCOL Last administered on 05/08/20at 11:14; Start 05/08/20 at 10:45 Vecuronium Jeffrey (Norcuron Bolus) 5 mg 1X ONCE IV ; Start 05/08/20 at 10:45; Stop 05/08/20 at 10:46; Status Cancel Succinylcholine Chloride (Anectine) 200 mg 1X ONCE IV Last administered on 05/08/20at 11:08; Start 05/08/20 at 10:45; Stop 05/08/20 at 10:46; Status DC Vecuronium Jeffrey (Norcuron Bolus) 6 mg PRN Q4HRS PRN IV AGITATION Last administered on 05/10/20at 07:20; Start 05/08/20 at 10:45; Stop 05/10/20 at 09:36; Status DC Acetaminophen (Tylenol) 650 mg PRN Q4HRS PRN PEG MILD PAIN / TEMP > 100.3'F Last administered on 05/10/20at 07:18; Start 05/08/20 at 12:30 Piperacillin Sod/ Tazobactam Sod (Zosyn Per Pharmacy) 1 each PRN DAILY PRN MC SEE COMMENTS; Start 05/08/20 at 13:15 Piperacillin Sod/ Tazobactam Sod 3.375 gm/Sodium Chloride 50 ml @ 100 mls/hr Q6HRS IV Last administered on 05/10/20at 06:40; Start 05/08/20 at 14:00 Fentanyl Citrate 2,750 ml @ 0 mls/hr CONT PRN IV SEE PROTOCOL Last administered on 05/08/20at 13:49; Start 05/08/20 at 13:45; Stop 05/08/20 at 17:54; Status DC Fentanyl Citrate 55 ml @ 0 mls/hr CONT PRN IV SEE PROTOCOL Last administered on 05/09/20at 21:39; Start 05/08/20 at 17:54 Vecuronium Jeffrey (Norcuron Bolus) 6 mg PRN Q1HR PRN IV AGITATION; Start 05/10/20 at 09:45 Vecuronium Jeffrey 50 mg/ Miscellaneous 50 ml @ 5.64 mls/hr CONT PRN IV SEE I/O RECORD Last administered on 05/10/20at 10:14; Start 05/10/20 at 09:45 Vitals/I & O Vital Sign - Last 24 Hours 05/09/20 05/09/20 05/09/20 05/09/20 11:00 11:44 12:00 12:00 Temp 98.6 98.6 Pulse 66 66 Resp 30 30 B/P (MAP) 109/62 (78) 107/63 (78) Pulse Ox 94 93 O2 Delivery Ventilator Mechanical Ventilator Ventilator 05/09/20 05/09/20 05/09/20 05/09/20 12:15 13:00 14:00 15:00 Pulse 66 64 64 Resp 30 30 30 B/P (MAP) 109/62 (78) 108/62 (77) 112/64 (80) Pulse Ox 93 92 93 94 O2 Delivery Ventilator Ventilator Ventilator Ventilator 05/09/20 05/09/20 05/09/20 05/09/20 15:35 16:00 16:00 17:00 Temp 98.6 98.6 Pulse 64 66 Resp 30 30 B/P (MAP) 114/64 (81) 117/66 (83) Pulse Ox 94 95 O2 Delivery Mechanical Ventilator Ventilator Ventilator 05/09/20 05/09/20 05/09/20 05/09/20 18:00 19:00 20:00 20:00 Temp 98.6 98.6 Pulse 63 63 62 Resp 30 30 30 B/P (MAP) 120/68 (85) 115/64 (81) 118/68 (85) Pulse Ox 94 95 94 O2 Delivery Ventilator Ventilator Ventilator Mechanical Ventilator 05/09/20 05/09/20 05/09/20 05/09/20 20:00 20:33 21:00 21:39 Pulse 63 Resp 30 B/P (MAP) 127/78 (94) Pulse Ox 94 95 94 O2 Delivery Ventilator Ventilator O2 Flow Rate 40.0 05/09/20 05/09/20 05/09/20 05/09/20 22:00 22:09 23:00 23:07 Pulse 59 64 Resp 30 30 30 B/P (MAP) 126/71 (89) 117/65 (82) Pulse Ox 95 95 94 95 O2 Delivery Ventilator Ventilator Ventilator Ventilator O2 Flow Rate 40.0 05/09/20 05/10/20 05/10/20 05/10/20 23:59 00:00 00:01 01:00 Temp 98.8 98.8 Pulse 64 63 Resp 30 30 B/P (MAP) 121/68 (85) 116/64 (81) Pulse Ox 94 93 O2 Delivery Mechanical Ventilator Ventilator Ventilator 1/07/2605/10/20 05/10/20 05/10/20 02:00 03:00 03:55 04:00 Pulse 64 65 Resp 30 30 B/P (MAP) 115/63 (80) 119/67 (84) Pulse Ox 93 93 94 O2 Delivery Ventilator Ventilator Ventilator 05/10/20 05/10/20 05/10/20 05/10/20 04:00 04:00 05:00 06:00 Temp 98.6 98.6 Pulse 60 67 64 Resp 30 30 30 B/P (MAP) 131/73 (92) 128/66 (86) 118/64 (82) Pulse Ox 94 92 91 O2 Delivery Mechanical Ventilator Ventilator Ventilator Ventilator 05/10/20 05/10/20 05/10/20 05/10/20 07:00 07:09 07:38 07:49 Pulse 76 70 Resp 30 B/P (MAP) 116/57 (76) 120/70 Pulse Ox 81 80 O2 Delivery Ventilator Mechanical Ventilator Ventilator 05/10/20 05/10/20 05/10/20 05/10/20 08:00 08:00 09:00 09:44 Temp 100.4 100.4 Pulse 80 101 Resp 30 30 B/P (MAP) 113/62 (79) 119/63 (81) Pulse Ox 88 76 79 O2 Delivery Ventilator Ventilator 05/10/20 10:00 Pulse 75 Resp 30 B/P (MAP) 109/59 (76) Pulse Ox 80 O2 Delivery Ventilator Intake and Output 05/09/20 05/09/20 05/10/20 15:00 23:00 07:00 Intake Total 400 ml 2183 ml 2141.8 ml Output Total 435 ml 340 ml 375 ml Balance -35 ml 1843 ml 1766.8 ml Justicifation of Admission Dx: Justifications for Admission: Justification of Admission Dx: Yes Comminuty Aquired Pneumonia: Dehydration DONNY FARIA MD May 10, 2020 10:49
--- NOTE | 2020-05-10 11:19 | PDOC ---
PULMONARY PROGRESS NOTES DATE: 05/10/20 TIME: 11:17 Subjective Remains vent 100% and PEEP of 12 Febrile overnight Hypoxia on examination this morning despite ventilatory support, oxygen saturation 77% Vitals Vital Signs Date Time Temp Pulse Resp B/P (MAP) Pulse Ox O2 Delivery O2 Flow Rate FiO2 05/10/20 11:00 71 30 115/65 (82) 82 Ventilator 05/10/20 08:00 100.4 100.4 05/09/20 22:09 40.0 Comments Pt. seen during covid- pandemic, visual exam preformed RRR accessory muscle use no rash or edema intubated Labs Laboratory Tests Test 05/09/20 05:40 05/09/20 05:41 05/09/20 08:50 05/10/20 08:00 White Blood Count 6.5 x10^3/uL (4.0-11.0) Red Blood Count 3.79 x10^6/uL (4.30-5.70) Hemoglobin 10.7 g/dL (13.0-17.5) Hematocrit 31.9 % (39.0-53.0) Mean Corpuscular Volume 84 fL (79-100) Mean Corpuscular Hemoglobin 28 pg (25-35) Mean Corpuscular Hemoglobin Concent 34 g/dL (31-37) Red Cell Distribution Width 13.6 % (11.5-14.5) Platelet Count 160 x10^3/uL (140-400) Neutrophils (%) (Auto) 81 % (31-73) Lymphocytes (%) (Auto) 12 % (24-48) Monocytes (%) (Auto) 7 % (0-9) Eosinophils (%) (Auto) 0 % (0-3) Basophils (%) (Auto) 0 % (0-3) Neutrophils # (Auto) 5.2 x10^3/uL (1.8-7.7) Lymphocytes # (Auto) 0.8 x10^3/uL (1.0-4.8) Monocytes # (Auto) 0.4 x10^3/uL (0.0-1.1) Eosinophils # (Auto) 0.0 x10^3/uL (0.0-0.7) Basophils # (Auto) 0.0 x10^3/uL (0.0-0.2) Sodium Level 140 mmol/L (136-145) Potassium Level 3.9 mmol/L (3.5-5.1) Chloride Level 106 mmol/L (98-107) Carbon Dioxide Level 24 mmol/L (21-32) Anion Gap 10 (6-14) Blood Urea Nitrogen 18 mg/dL (8-26) Creatinine 0.9 mg/dL (0.7-1.3) Estimated GFR (Cockcroft-Gault) 93.0 BUN/Creatinine Ratio 20 (6-20) Glucose Level 135 mg/dL (70-99) Calcium Level 8.4 mg/dL (8.5-10.1) Total Bilirubin 0.6 mg/dL (0.2-1.0) Aspartate Amino Transf (AST/SGOT) 36 U/L (15-37) Alanine Aminotransferase (ALT/SGPT) 76 U/L (16-63) Alkaline Phosphatase 100 U/L (46-116) Total Protein 5.9 g/dL (6.4-8.2) Albumin 1.8 g/dL (3.4-5.0) Albumin/Globulin Ratio 0.4 (1.0-1.7) Glucose (Fingerstick) 131 mg/dL (70-99) O2 Saturation 96 % (92-99) 86 % (92-99) Arterial Blood pH 7.43 (7.35-7.45) 7.38 (7.35-7.45) Arterial Blood pCO2 at Patient Temp 38 mmHg (35-46) 45 mmHg (35-46) Arterial Blood pO2 at Patient Temp 87 mmHg (75-108) 54 mmHg (75-108) Arterial Blood HCO3 25 mmol/L (21-28) 26 mmol/L (21-28) Arterial Blood Base Excess 1 mmol/L (-3-3) 1 mmol/L (-3-3) FiO2 100% vent 100% Laboratory Tests Test 05/10/20 08:00 O2 Saturation 86 % (92-99) Arterial Blood pH 7.38 (7.35-7.45) Arterial Blood pCO2 at Patient Temp 45 mmHg (35-46) Arterial Blood pO2 at Patient Temp 54 mmHg (75-108) Arterial Blood HCO3 26 mmol/L (21-28) Arterial Blood Base Excess 1 mmol/L (-3-3) FiO2 100% Comments CXR 1/1/21 IMPRESSION: 1. Nasogastric tube within the proximal stomach. There are prominent air-filled bowel throughout the visualized upper abdomen which are similar compared to the prior study. 2. Increase in partially consolidated left greater the right lung infiltrate superimposed on diffuse interstitial and alveolar infiltrate. Impression . IMPRESSION: 1. Acute respiratory failure secondary to COVID-19 viral pneumonia, worsening, now requiring intubation 2. COVID-19 viral pneumonia. 3. Possible bacterial pneumonia. 4. Hypertension. 5. Obesity. 6. Tobacco dependent. 7. Elevated liver chemistries. Plan . PLAN: continue vent support A?C 30/450/12/100%, peak airway pressures are 42 on examination Follow ABG/CXR, will switch the patient over to pressure control, assist control/pressure control rate of 30, driving pressure of 25, 100% and a PEEP of 12 Adequate sedation, as needed paralytics as needed Symptomatic treatment of fever The patient is not a candidate for remdesivir 2/2 elevated LFTs and timing of positive test Continue steroids for full 10 day course, started on 05/06 Continue empiric antibiotics per infectious disease Monitor LFTS Follow cardiology recs Continue tube feeding for nutritional support, tolerating well DVT/GI PPX D/W RN and RT Pt. is FULL CODE Critical care time [id number] ADDISON LONDON MD May 10, 2020 11:19
--- NOTE | 2020-05-10 11:27 | PDOC ---
Infectious Disease Note Subjective: Subjective Patient intubated/sedated Temperature 100.4 FiO2 100% PEEP of 12 Vital Signs: Vital Signs Vital Signs Date Time Temp Pulse Resp B/P (MAP) Pulse Ox O2 Delivery O2 Flow Rate FiO2 05/10/20 11:00 71 30 115/65 (82) 82 Ventilator 05/10/20 08:00 100.4 100.4 05/09/20 22:09 40.0 Physical Exam: PHYSICAL EXAM GENERAL: Intubated and sedated male in no acute distress. HEENT: Normocephalic, atraumatic. ETT and OGT tube present. NECK: Supple. LUNGS: Decreased breath sounds. HEART: S1, S2, no murmurs. ABDOMEN: Soft, obese, nontender. Mildly distended. EXTREMITIES: No edema, no cyanosis. DERMATOLOGIC: Warm and dry. No generalized rash. NEUROLOGIC: Intubated. PSYCHIATRIC: Unable to obtain. Medications: Inpatient Meds: Current Medications Medications (Trade) Dose Ordered Sig/Eri Start Time Stop Time Status Last Admin Dose Admin Acetaminophen (Tylenol) 650 mg PRN Q4HRS PRN 05/08/20 12:30 05/10/20 07:18 650 MG Al Hydroxide/Mg Hydroxide (Mylanta Plus Xs) 30 ml PRN DAILY PRN 05/06/20 16:30 Albuterol Sulfate (Ventolin Neb Soln) 2.5 mg PRN Q4HRS PRN 05/06/20 16:30 Amlodipine Besylate (Norvasc) 10 mg DAILY 05/07/20 09:00 05/10/20 07:09 10 MG Ascorbic Acid (Vitamin C) 500 mg DAILY 05/07/20 09:00 05/10/20 07:07 500 MG Azithromycin 250 ml @ 250 mls/hr 1X ONCE 05/06/20 16:30 05/06/20 17:29 Cancel Azithromycin 500 mg/Sodium Chloride 250 ml @ 250 mls/hr Q24H 05/07/20 09:00 05/10/20 07:07 250 MLS/HR Ceftriaxone Sodium (Rocephin) 1 gm DAILY08 05/07/20 08:00 UNV Chlorhexidine Gluconate (Peridex) 15 ml BID 05/08/20 09:00 05/09/20 07:31 DC 05/08/20 10:26 15 ML Clonidine HCl (Catapres) 0.1 mg PRN Q6HRS PRN 05/06/20 16:30 05/07/20 21:03 0.1 MG Dexamethasone Sodium Phosphate (Decadron) 6 mg DAILY 05/08/20 09:00 05/10/20 07:09 6 MG Dexmedetomidine HCl 400 mcg/ Sodium Chloride 100 ml @ 0 mls/hr CONT PRN 05/08/20 06:45 05/10/20 07:10 11.75 MLS/HR Docusate Sodium (Colace) 100 mg PRN BID PRN 05/06/20 16:30 Enoxaparin Sodium (Lovenox 40mg Syringe) 40 mg BID 05/07/20 11:00 05/10/20 07:06 40 MG Famotidine (Pepcid) 20 mg BID 05/07/20 09:00 05/09/20 07:31 DC 05/08/20 22:20 20 MG Fentanyl Citrate 55 ml @ 0 mls/hr CONT PRN 05/08/20 17:54 05/09/20 21:39 3 MLS/HR Fentanyl Citrate (Fentanyl 2ml Vial) 25 mcg PRN Q1HR PRN 05/08/20 06:45 Guaifenesin (Robitussin) 200 mg PRN Q4HRS PRN 05/06/20 16:30 05/08/20 00:37 200 MG Info (CONTRAST GIVEN -- Rx MONITORING) 1 each PRN DAILY PRN 05/06/20 16:45 05/08/20 16:44 DC Iohexol (Omnipaque 350 Mg/ml) 100 ml 1X ONCE 05/06/20 16:45 05/06/20 16:46 DC 05/06/20 17:04 100 ML Isosorbide Mononitrate (Imdur) 60 mg DAILY 05/07/20 09:00 05/09/20 07:31 DC Labetalol HCl (Normodyne Iv Push) 10 mg PRN Q3HRS PRN 05/07/20 08:30 05/07/20 18:13 10 MG Lactobacillus Rhamnosus (Culturelle) 1 cap BID 05/07/20 21:00 05/10/20 07:08 1 CAP Levofloxacin/ Dextrose 150 ml @ 100 mls/hr 1X ONCE 05/06/20 15:00 05/06/20 16:29 DC 05/06/20 15:25 100 MLS/HR Lorazepam (Ativan Inj) 0.5 mg PRN Q4HRS PRN 05/07/20 15:15 05/08/20 01:14 0.5 MG Lorazepam (Ativan) 0.5 mg PRN Q4HRS PRN 05/06/20 16:30 05/07/20 15:15 DC 05/07/20 05:09 0.5 MG Methylprednisolone Sodium Succinate (SOLU-Medrol 125MG VIAL) 125 mg 1X ONCE 05/06/20 15:00 05/06/20 15:01 DC 05/06/20 15:24 125 MG Midazolam HCl 100 ml @ 0 mls/hr CONT PRN 05/08/20 07:45 05/10/20 07:09 10 MLS/HR Norepinephrine Bitartrate 8 mg/ Dextrose 258 ml @ 22.736 mls/ hr CONT PRN 05/08/20 10:45 05/08/20 11:14 22.736 MLS/HR Ondansetron HCl (Zofran) 4 mg PRN Q4HRS PRN 05/06/20 16:30 Pantoprazole Sodium (PROTONIX VIAL for IV PUSH) 40 mg DAILYAC 05/08/20 11:00 05/10/20 07:06 40 MG Piperacillin Sod/ Tazobactam Sod (Zosyn Per Pharmacy) 1 each PRN DAILY PRN 05/08/20 13:15 Piperacillin Sod/ Tazobactam Sod 3.375 gm/Sodium Chloride 50 ml @ 100 mls/hr Q6HRS 05/08/20 14:00 05/10/20 06:40 100 MLS/HR Propofol 100 ml @ 0 mls/hr CONT PRN 05/08/20 07:45 Sodium Monofluorophosphate (Fleet Adult) 133 ml PRN DAILY PRN 05/06/20 16:30 Sodium Chloride 1,000 ml @ 120 mls/hr Q8H20M 05/06/20 16:30 05/10/20 03:49 120 MLS/HR Sodium Chloride (Normal Saline Flush) 3 ml QSHIFT PRN 05/06/20 16:30 Sterile Water (WATER for RESP) 1,000 ml CONT PRN 05/07/20 12:15 05/07/20 21:05 1,000 ML Succinylcholine Chloride (Anectine) 200 mg 1X ONCE 05/08/20 10:45 05/08/20 10:46 DC 05/08/20 11:08 200 MG Thiamine HCl 100 mg/Folic Acid 1 mg/Sodium Chloride 1,001.2 ml @ 990.198 mls/hr 1X ONCE 05/07/20 10:15 05/07/20 11:15 DC 05/07/20 12:44 990.198 MLS/HR Vecuronium [place] 50 mg/ Miscellaneous 50 ml @ 5.64 mls/hr CONT PRN 05/10/20 09:45 05/10/20 10:14 5.64 MLS/HR Vecuronium [place] (Norcuron Bolus) 6 mg PRN Q1HR PRN 05/10/20 09:45 Vitamin D (Vitamin D3) 2,000 unit DAILY 05/07/20 09:00 05/10/20 07:08 2,000 UNIT Zinc Sulfate (Orazinc) 220 mg DAILY 05/07/20 09:00 05/10/20 07:07 220 MG Labs: Lab Laboratory Tests Test 05/10/20 08:00 O2 Saturation 86 % (92-99) Arterial Blood pH 7.38 (7.35-7.45) Arterial Blood pCO2 at Patient Temp 45 mmHg (35-46) Arterial Blood pO2 at Patient Temp 54 mmHg (75-108) Arterial Blood HCO3 26 mmol/L (21-28) Arterial Blood Base Excess 1 mmol/L (-3-3) FiO2 100% Objective: Assessment: 1. Fever 2. COVID-19 infection. 3. Acute hypoxic respiratory failure.S/P Intubation 4. Pneumonia 5. Hyponatremia. 6. Morbid obesity. 7. Smoker. 8. Transaminitis. 9. Anemia. 10. Uncontrolled hypertension. Plan: Plan of Care Continue Zosyn and azithromycin. Continue supportive care. Monitor labs and cultures. On steroids Pulmonary team following Discussed with nursing staff SIMON MAZARIEGOS MD May 10, 2020 11:27
[2020-05-10] MEDS: fentaNYL HIGH DOSE PCA 55 ML IV PRN (11:39)
[2020-05-10] MEDS: TPN PER PHARMACY MC PRN (13:07)
--- NOTE | 2020-05-10 13:16 | NUR ---
Pharmacy TPN Dosing Note S: ARIANNE JARVIS is a 40 year old M Currently receiving Central Continuous TPN started 05/10/20 B:Pertinent PMH: NPO Height: 5 feet, 8 inches Weight: 117.5 kg Current diet: TF LABS: Sodium: 140 Potassium: 3.9 Chloride: 106 Calcium: 8.4 Corrected Calcium: 10.16 Magnesium: CO2: 24 SCr: 0.9 Glucose: 135 Albumin: 1.8 AST: 36 ALT: 76 TPN FORMULA: TPN TYPE: Central Continuous AMINO ACIDS: 60 gm DEXTROSE: 195 gm LIPIDS: 20 gm SODIUM CHLORIDE: mEq SODIUM ACETATE: 90 mEq SODIUM PHOSPHATE: mmol POTASSIUM CHLORIDE: 50 mEq POTASSIUM ACETATE: mEq POTASSIUM PHOSPHATE: 13.6 mmol MAGNESIUM: 10 mEq CALCIUM: 10 mEq INSULIN: units MULTIPLE VITAMIN: 5 ml TRACE ELEMENTS: 1 ml(s) TPN PLAN: HOUSE TPN WITH KACETATE INSTEAD OF KCL. R: Begin TPN AT 63ML/HR. BMP, MAG/PHOS LEVEL IN AM Will monitor electrolytes, glucose, and tolerance to TPN. ALYX BUCKNER [facility], 05/10/20 [id number]
--- NOTE | 2020-05-10 14:10 | PDOC ---
PROGRESS NOTES Date of Service DATE: 05/10/20 TIME: 14:09 Subjective Subjective Patient seen and evaluated Objective Objective Vital Signs Date Time Temp Pulse Resp B/P (MAP) Pulse Ox O2 Delivery O2 Flow Rate FiO2 05/10/20 13:00 69 30 121/69 (86) 85 Ventilator 05/10/20 12:00 100.2 100.2 05/09/20 22:09 40.0 Intake and Output 05/10/20 07:00 Intake Total 4724.8 ml Output Total 1150 ml Balance 3574.8 ml IV Total 3516.8 ml Tube Feeding 908 ml Other 300 ml Output Urine Total 1025 ml Gastric Drainage Total 125 ml Physical Exam Physical Exam Visual exam as per Covid status. Assessment Assessment Problems Medical Problems: (1) COVID-19 Status: Acute (2) Hyponatremia Status: Acute (3) Respiratory failure Status: Acute (4) Transaminitis Status: Acute Acute respiratory failure with Covid- 19 Pneumonia. Intubated. Continuing medications and ventilator management as per the pulmonary and ID services. HTN urgency. Hypotensive yesterday. Improved blood pressure today. Continue on present treatment. Mild transaminitis Abdominal pain. Evaluation as above. Reactive sinus tachycardia. Resolved. Comment Review of Relevant I have reviewed the following items kush (where applicable) has been applied. Labs Laboratory Tests Test 05/09/20 05:40 05/09/20 05:41 05/09/20 08:50 05/10/20 08:00 White Blood Count 6.5 x10^3/uL (4.0-11.0) Red Blood Count 3.79 x10^6/uL (4.30-5.70) Hemoglobin 10.7 g/dL (13.0-17.5) Hematocrit 31.9 % (39.0-53.0) Mean Corpuscular Volume 84 fL (79-100) Mean Corpuscular Hemoglobin 28 pg (25-35) Mean Corpuscular Hemoglobin Concent 34 g/dL (31-37) Red Cell Distribution Width 13.6 % (11.5-14.5) Platelet Count 160 x10^3/uL (140-400) Neutrophils (%) (Auto) 81 % (31-73) Lymphocytes (%) (Auto) 12 % (24-48) Monocytes (%) (Auto) 7 % (0-9) Eosinophils (%) (Auto) 0 % (0-3) Basophils (%) (Auto) 0 % (0-3) Neutrophils # (Auto) 5.2 x10^3/uL (1.8-7.7) Lymphocytes # (Auto) 0.8 x10^3/uL (1.0-4.8) Monocytes # (Auto) 0.4 x10^3/uL (0.0-1.1) Eosinophils # (Auto) 0.0 x10^3/uL (0.0-0.7) Basophils # (Auto) 0.0 x10^3/uL (0.0-0.2) Sodium Level 140 mmol/L (136-145) Potassium Level 3.9 mmol/L (3.5-5.1) Chloride Level 106 mmol/L (98-107) Carbon Dioxide Level 24 mmol/L (21-32) Anion Gap 10 (6-14) Blood Urea Nitrogen 18 mg/dL (8-26) Creatinine 0.9 mg/dL (0.7-1.3) Estimated GFR (Cockcroft-Gault) 93.0 BUN/Creatinine Ratio 20 (6-20) Glucose Level 135 mg/dL (70-99) Calcium Level 8.4 mg/dL (8.5-10.1) Total Bilirubin 0.6 mg/dL (0.2-1.0) Aspartate Amino Transf (AST/SGOT) 36 U/L (15-37) Alanine Aminotransferase (ALT/SGPT) 76 U/L (16-63) Alkaline Phosphatase 100 U/L (46-116) Total Protein 5.9 g/dL (6.4-8.2) Albumin 1.8 g/dL (3.4-5.0) Albumin/Globulin Ratio 0.4 (1.0-1.7) Triglycerides Level 327 mg/dL (0-150) Glucose (Fingerstick) 131 mg/dL (70-99) O2 Saturation 96 % (92-99) 86 % (92-99) Arterial Blood pH 7.43 (7.35-7.45) 7.38 (7.35-7.45) Arterial Blood pCO2 at Patient Temp 38 mmHg (35-46) 45 mmHg (35-46) Arterial Blood pO2 at Patient Temp 87 mmHg (75-108) 54 mmHg (75-108) Arterial Blood HCO3 25 mmol/L (21-28) 26 mmol/L (21-28) Arterial Blood Base Excess 1 mmol/L (-3-3) 1 mmol/L (-3-3) FiO2 100% vent 100% Laboratory Tests Test 05/10/20 08:00 O2 Saturation 86 % (92-99) Arterial Blood pH 7.38 (7.35-7.45) Arterial Blood pCO2 at Patient Temp 45 mmHg (35-46) Arterial Blood pO2 at Patient Temp 54 mmHg (75-108) Arterial Blood HCO3 26 mmol/L (21-28) Arterial Blood Base Excess 1 mmol/L (-3-3) FiO2 100% Microbiology 05/08/20 Gram Stain Evaluation - Final, Resulted 05/08/20 Respiratory Culture - Preliminary, Resulted 05/06/20 Urine Culture - Final, Complete 05/06/20 Blood Culture - Preliminary, Resulted NO GROWTH AFTER 3 DAYS Medications Current Medications Levofloxacin/ Dextrose 150 ml @ 100 mls/hr 1X ONCE IV Last administered on 05/06/20at 15:25; Start 05/06/20 at 15:00; Stop 05/06/20 at 16:29; Status DC Methylprednisolone Sodium Succinate (SOLU-Medrol 125MG VIAL) 125 mg 1X ONCE IV Last administered on 05/06/20at 15:24; Start 05/06/20 at 15:00; Stop 05/06/20 at 15:01; Status DC Sodium Chloride 1,000 ml @ 1,000 mls/hr 1X ONCE IV Last administered on 05/06/20at 15:25; Start 05/06/20 at 15:00; Stop 05/06/20 at 15:59; Status DC Acetaminophen (Tylenol) 1,000 mg 1X ONCE PO Last administered on 05/06/20at 16 :21; Start 05/06/20 at 16:15; Stop 05/06/20 at 16:16; Status DC Dexamethasone Sodium Phosphate (Decadron) 6 mg BID IVP Last administered on 05/07/20at 08:41; Start 05/06/20 at 21:00; Stop 05/07/20 at 10:06; Status DC Ceftriaxone Sodium (Rocephin) 1 gm Q24H IVP Last administered on 05/07/20at 17:25; Start 05/06/20 at 17:00; Stop 05/08/20 at 13:18; Status DC Azithromycin 250 ml @ 250 mls/hr 1X ONCE IV ; Start 05/06/20 at 16:30; Stop 05/06/20 at 17:29; Status Cancel Ceftriaxone Sodium (Rocephin) 1 gm DAILY08 IVP ; Start 05/07/20 at 08:00; Status UNV Sodium Chloride (Normal Saline Flush) 3 ml QSHIFT PRN IV AFTER MEDS AND BLOOD DRAWS; Start 05/06/20 at 16:30 Sodium Chloride 1,000 ml @ 120 mls/hr Q8H20M IV Last administered on 05/10/20at 03:49; Start 05/06/20 at 16:30 Ondansetron HCl (Zofran) 4 mg PRN Q4HRS PRN IV NAUSEA/VOMITING; Start 05/06/20 at 16:30 Acetaminophen (Tylenol) 650 mg PRN Q4HRS PRN PO TEMP OVER 100.4F OR MILD PAIN Last administered on 05/08/20at 10:26; Start 05/06/20 at 16:30; Stop 05/08/20 at 12:29; Status DC Al Hydroxide/Mg Hydroxide (Mylanta Plus Xs) 30 ml PRN DAILY PRN PO HEARTBURN / GAS; Start 05/06/20 at 16:30 Clonidine HCl (Catapres) 0.1 mg PRN Q6HRS PRN PO SBP>160 OR DBP>90 Last administered on 05/07/20at 21:03; Start 05/06/20 at 16:30 Sodium Monofluorophosphate (Fleet Adult) 133 ml PRN DAILY PRN LA CONSTIPATION; Start 05/06/20 at 16:30 Docusate Sodium (Colace) 100 mg PRN BID PRN PO HARD STOOLS; Start 05/06/20 at 16:30 Albuterol Sulfate (Ventolin Neb Soln) 2.5 mg PRN Q4HRS PRN NEB SHORTNESS OF BREATH; Start 05/06/20 at 16:30 Guaifenesin (Robitussin) 200 mg PRN Q4HRS PRN PO COUGH Last administered on 05/08/20at 00:37; Start 05/06/20 at 16:30 Lorazepam (Ativan) 0.5 mg PRN Q4HRS PRN PO ANXIETY / AGITATION Last admi nistered on 05/07/20at 05:09; Start 05/06/20 at 16:30; Stop 05/07/20 at 15:15; Status DC Enoxaparin Sodium (Lovenox 40mg Syringe) 40 mg Q24H SQ Last administered on 05/06/20at 17:29; Start 05/06/20 at 17:00; Stop 05/07/20 at 10:20; Status DC Azithromycin 500 mg/Sodium Chloride 250 ml @ 250 mls/hr Q24H IV Last administered on 05/10/20at 07:07; Start 05/07/20 at 09:00 Iohexol (Omnipaque 350 Mg/ml) 100 ml 1X ONCE IV Last administered on 05/06/20at 17:04; Start 05/06/20 at 16:45; Stop 05/06/20 at 16:46; Status DC Info (CONTRAST GIVEN -- Rx MONITORING) 1 each PRN DAILY PRN MC SEE COMMENTS; Start 05/06/20 at 16:45; Stop 05/08/20 at 16:44; Status DC Dexamethasone Sodium Phosphate (Decadron) 6 mg BID IVP ; Start 05/07/20 at 09:00; Status UNV Ascorbic Acid (Vitamin C) 500 mg DAILY PO Last administered on 05/10/20 07:07; Start 05/07/20 at 09:00 Famotidine (Pepcid) 20 mg BID PO Last administered on 05/08/20 22:20; Start 05/07/20 at 09:00; Stop 05/09/20 at 07:31; Status DC Vitamin D (Vitamin D3) 2,000 unit DAILY PO Last administered on 05/10/20 07:08; Start 05/07/20 at 09:00 Zinc Sulfate (Orazinc) 220 mg DAILY PO Last administered on 05/10/20 07:07; Start 05/07/20 at 09:00 Labetalol HCl (Normodyne Iv Push) 10 mg PRN Q3HRS PRN IVP HYPERTENSION Last administered on 05/07/20at 18:13; Start 05/07/20 at 08:30 Amlodipine Besylate (Norvasc) 10 mg DAILY PO Last administered on 05/10/20 07:09; Start 05/07/20 at 09:00 Isosorbide Mononitrate (Imdur) 60 mg DAILY PO ; Start 05/07/20 at 09:00; Stop 05/09/20 at 07:31; Status DC Dexamethasone Sodium Phosphate (Decadron) 6 mg DAILY IVP Last administered on 05/10/20at 07:09; Start 05/08/20 at 09:00 Thiamine HCl 100 mg/Folic Acid 1 mg/Sodium Chloride 1,001.2 ml @ 990.198 mls/hr 1X ONCE IV Last administered on 05/07/20at 12:44; Start 05/07/20 at 10:15; Stop 05/07/20 at 11:15; Status DC Enoxaparin Sodium (Lovenox 40mg Syringe) 40 mg BID SQ Last administered on 05/10/20at 07:06; Start 05/07/20 at 11:00 Lactobacillus Rhamnosus (Culturelle) 1 cap BID PO Last administered on 05/10/20at 07:08; Start 05/07/20 at 21:00 Sterile Water (WATER for RESP) 1,000 ml CONT PRN INH VIA VAPOTHERM DEVICE Last administered on 05/07/20at 21:05; Start 05/07/20 at 12:15 Lorazepam (Ativan Inj) 0.5 mg PRN Q4HRS PRN IVP ANXIETY / AGITATION Last administered on 05/08/20at 01:14; Start 05/07/20 at 15:15 Dexmedetomidine HCl 400 mcg/ Sodium Chloride 100 ml @ 0 mls/hr CONT PRN IV PER PROTOCOL Last administered on 05/10/20at 12:52; Start 05/08/20 at 06:45 Fentanyl Citrate (Fentanyl 2ml Vial) 25 mcg PRN Q1HR PRN IV SEVERE PAIN 7-10; Start 05/08/20 at 06:45 Propofol 100 ml @ As Directed STK-MED ONCE IV ; Start 05/08/20 at 07:19; Stop 05/08/20 at 07:19; Status DC Succinylcholine Chloride (Anectine) 200 mg STK-MED ONCE .ROUTE ; Start 05/08/20 at 07:19; Stop 05/08/20 at 07:20; Status DC Fentanyl Citrate 30 ml @ 0 mls/hr CONT PRN IV SEE PROTOCOL Last administered on 05/08/20at 12:21; Start 05/08/20 at 07:45; Stop 05/08/20 at 13:33; Status DC Propofol 100 ml @ 0 mls/hr CONT PRN IV PER PROTOCOL; Start 05/08/20 at 07:45 Chlorhexidine Gluconate (Peridex) 15 ml BID MM Last administered on 05/08/20at 10:26; Start 05/08/20 at 09:00; Stop 05/09/20 at 07:31; Status DC Midazolam HCl 100 ml @ 0 mls/hr CONT PRN IV SEE PROTOCOL Last administered on 05/10/20at 07:09; Start 05/08/20 at 07:45 Vecuronium [place] (Norcuron Bolus) 10 mg STK-MED ONCE IV ; Start 05/08/20 at 08:21; Stop 05/08/20 at 08:21; Status DC Pantoprazole Sodium (PROTONIX VIAL for IV PUSH) 40 mg DAILYAC IVP Last administered on 05/10/20at 07:06; Start 05/08/20 at 11:00 Vecuronium [place] (Norcuron Bolus) 10 mg 1X ONCE IV Last administered on 05/08/20at 11:07; Start 05/08/20 at 10:00; Stop 05/08/20 at 10:01; Status DC Norepinephrine Bitartrate 8 mg/ Dextrose 258 ml @ 22.736 mls/ hr CONT PRN IV PER PROTOCOL Last administered on 05/08/20at 11:14; Start 05/08/20 at 10:45 Vecuronium [place] (Norcuron Bolus) 5 mg 1X ONCE IV ; Start 05/08/20 at 10:45; Stop 05/08/20 at 10:46; Status Cancel Succinylcholine Chloride (Anectine) 200 mg 1X ONCE IV Last administered on 05/08/20at 11:08; Start 05/08/20 at 10:45; Stop 05/08/20 at 10:46; Status DC Vecuronium [place] (Norcuron Bolus) 6 mg PRN Q4HRS PRN IV AGITATION Last administered on 05/10/20at 07:20; Start 05/08/20 at 10:45; Stop 05/10/20 at 09:36; Status DC Acetaminophen (Tylenol) 650 mg PRN Q4HRS PRN PEG MILD PAIN / TEMP > 100.3'F Last administered on 05/10/20at 07:18; Start 05/08/20 at 12:30 Piperacillin Sod/ Tazobactam Sod (Zosyn Per Pharmacy) 1 each PRN DAILY PRN MC SEE COMMENTS; Start 05/08/20 at 13:15 Piperacillin Sod/ Tazobactam Sod 3.375 gm/Sodium Chloride 50 ml @ 100 mls/hr Q6HRS IV Last administered on 05/10/20at 11:39; Start 05/08/20 at 14:00 Fentanyl Citrate 2,750 ml @ 0 mls/hr CONT PRN IV SEE PROTOCOL Last administered on 05/08/20at 13:49; Start 05/08/20 at 13:45; Stop 05/08/20 at 17:54; Status DC Fentanyl Citrate 55 ml @ 0 mls/hr CONT PRN IV SEE PROTOCOL Last administered on 05/10/20at 11:39; Start 05/08/20 at 17:54 Vecuronium [place] (Norcuron Bolus) 6 mg PRN Q1HR PRN IV AGITATION; Start 05/10/20 at 09:45 Vecuronium [place] 50 mg/ Miscellaneous 50 ml @ 5.64 mls/hr CONT PRN IV SEE I/O RECORD Last administered on 05/10/20at 13:34; Start 05/10/20 at 09:45 Info (Tpn Per Pharmacy) 1 each PRN DAILY PRN MC SEE COMMENTS Last administered on 05/10/20at 13:07; Start 05/10/20 at 12:15 Sodium Acetate 90 meq/Potassium Chloride 50 meq/ Potassium Phosphate 13.6 mmol/Magnesium Sulfate 10 meq/ Calcium Gluconate 10 meq/ Multivitamins 5 ml/Zinc/Copper/ Manganese/ Selenium 1 ml/ Total Parenteral Nutrition/Amino Acids/Dextrose/ Fat Emulsion Intravenous 1,512 ml @ 63 mls/hr TPN CONT IV ; Start 05/10/20 at 22:00; Stop 05/11/20 at 21:59 Vitals/I & O Vital Sign - Last 24 Hours 05/09/20 05/09/20 05/09/20 05/09/20 15:00 15:35 16:00 16:00 Temp 98.6 98.6 Pulse 64 64 Resp 30 30 B/P (MAP) 112/64 (80) 114/64 (81) Pulse Ox 94 94 O2 Delivery Ventilator Mechanical Ventilator Ventilator 05/09/20 05/09/20 05/09/20 05/09/20 17:00 18:00 19:00 20:00 Temp 98.6 98.6 Pulse 66 63 63 62 Resp 30 30 30 30 B/P (MAP) 117/66 (83) 120/68 (85) 115/64 (81) 118/68 (85) Pulse Ox 95 94 95 94 O2 Delivery Ventilator Ventilator Ventilator Ventilator 05/09/20 05/09/20 05/09/20 05/09/20 20:00 20:00 20:33 21:00 Pulse 63 Resp 30 B/P (MAP) 127/78 (94) Pulse Ox 94 95 O2 Delivery Mechanical Ventilator Ventilator Ventilator 05/09/20 05/09/20 05/09/20 05/09/20 21:39 22:00 22:09 23:00 Pulse 59 64 Resp 30 30 30 B/P (MAP) 126/71 (89) 117/65 (82) Pulse Ox 94 95 95 94 O2 Delivery Ventilator Ventilator Ventilator O2 Flow Rate 40.0 40.0 05/09/20 05/09/20 05/10/20 05/10/20 23:07 23:59 00:00 00:01 Temp 98.8 98.8 Pulse 64 Resp 30 B/P (MAP) 121/68 (85) Pulse Ox 95 94 O2 Delivery Ventilator Mechanical Ventilator Ventilator 05/10/20 05/10/20 05/10/20 05/10/20 01:00 02:00 03:00 03:55 Pulse 63 64 65 Resp 30 30 30 B/P (MAP) 116/64 (81) 115/63 (80) 119/67 (84) Pulse Ox 93 93 93 94 O2 Delivery Ventilator Ventilator Ventilator Ventilator 05/10/20 05/10/20 05/10/20 05/10/20 04:00 04:00 04:00 05:00 Temp 98.6 98.6 Pulse 60 67 Resp 30 30 B/P (MAP) 131/73 (92) 128/66 (86) Pulse Ox 94 92 O2 Delivery Mechanical Ventilator Ventilator Ventilator 05/10/20 05/10/20 05/10/20 05/10/20 06:00 07:00 07:09 07:38 Pulse 64 76 70 Resp 30 30 B/P (MAP) 118/64 (82) 116/57 (76) 120/70 Pulse Ox 91 81 O2 Delivery Ventilator Ventilator Mechanical Ventilator 05/10/20 05/10/20 05/10/20 05/10/20 07:49 08:00 08:00 09:00 Temp 100.4 100.4 Pulse 80 101 Resp 30 30 B/P (MAP) 113/62 (79) 119/63 (81) Pulse Ox 80 88 76 O2 Delivery Ventilator Ventilator Ventilator 05/10/20 05/10/20 05/10/20 05/10/20 09:44 10:00 11:00 11:45 Pulse 75 71 Resp 30 30 B/P (MAP) 109/59 (76) 115/65 (82) Pulse Ox 79 80 82 86 O2 Delivery Ventilator Ventilator Ventilator 05/10/20 05/10/20 05/10/20 05/10/20 12:00 12:00 12:00 13:00 Temp 100.2 100.2 Pulse 69 69 Resp 30 30 B/P (MAP) 120/67 (84) 121/69 (86) Pulse Ox 86 85 O2 Delivery Mechanical Ventilator Ventilator Ventilator Intake and Output 05/09/20 05/09/20 05/10/20 15:00 23:00 07:00 Intake Total 400 ml 2183 ml 2141.8 ml Output Total 435 ml 340 ml 375 ml Balance -35 ml 1843 ml 1766.8 ml Justifications for Admission General Conditions Poss tachycardia?: Yes Justification for admission: Patient has tachycardia (> 100 beats per minute) which is not readily corrected by appropriate treatment within 12 to 24 hours. acute hypoxic resp failure Other Justification NAMRATA ROYAL MD May 10, 2020 14:10
--- NOTE | 2020-05-10 14:48 | NUR ---
Patient's SPO2 was 75-82% this morning, ABG drawn and given to GABRIELA Brumfield. Patient was changed to pressure control of 25. Patient's and sister both updated on the telephone. Later, patient's called back asking to come get patient's belongings, so came to get patient's coat, shoes, shirt, and pants along with wallet and cell phone.
[2020-05-10] MEDS ORDERED: TOTAL PARENTERAL NUTRITION IV SCH (22:00)
[2020-05-10] MEDS ORDERED: DEXTROSE 70% IV SCH (22:00)
[2020-05-10] MEDS ORDERED: [UNRECOGNIZED DRUG - OTHER] IV SCH (22:00)
[2020-05-10] MEDS ORDERED: AMINO ACID IV SCH (22:00)
[2020-05-11] VITALS (24 sets, daily range): BP systolic 115–174; BP diastolic 59–84
[2020-05-11] MEDS: fentaNYL HIGH DOSE PCA 55 ML IV PRN ×2 (01:38→14:47)
[2020-05-11] MEDS: DEXMEDETOMIDINE 400 MCG in IV NORMAL SALINE 100ML 96 ML IV PRN ×6 (02:39→20:47)
[2020-05-11] MEDS: ACETAMINOPHEN 650 MG/20.3 ML SOLUTION. PEG PRN ×3 (02:47→21:11)
[2020-05-11] MEDS: PIPERACILLIN/TAZOBACTAM 3.375 GM in IV NORMAL SALINE 50ML 50 ML IV SCH ×4 (05:39→23:43)
[2020-05-11] MEDS: MIDAZOLAM 100mg/100ml NS BAG 100 ML IV PRN ×2 (06:02→16:08)
[2020-05-11 06:28] LABS: CALCIUM 7.9 mg/dL (8.5-10.1); CREATININE 0.9 mg/dL (0.7-1.3); MAGNESIUM 2.3 mg/dL (1.8-2.4); PHOSPHORUS 4.7 mg/dL (2.6-4.7); POTASSIUM 4.7 mmol/L (3.5-5.1)
--- NOTE | 2020-05-11 07:43 | PDOC ---
Infectious Disease Note Subjective Subjective Patient intubated/sedated Temperature 100.4 FiO2 100% PEEP of 12 ROS ROS no n/v/d/ Vital Sign Vital Signs Vital Signs Date Time Temp Pulse Resp B/P (MAP) Pulse Ox O2 Delivery O2 Flow Rate FiO2 05/11/20 07:00 101.3 76 30 124/68 (86) 91 Ventilator 101.3 Physical Exam PHYSICAL EXAM GENERAL: Intubated and sedated male in no acute distress. HEENT: Normocephalic, atraumatic. ETT and OGT tube present. NECK: Supple. LUNGS: Decreased breath sounds. HEART: S1, S2, no murmurs. ABDOMEN: Soft, obese, nontender. Mildly distended. EXTREMITIES: No edema, no cyanosis. DERMATOLOGIC: Warm and dry. No generalized rash. NEUROLOGIC: Intubated. PSYCHIATRIC: Unable to obtain. Labs Lab Laboratory Tests Test 05/10/20 08:00 05/11/20 06:00 O2 Saturation 86 % (92-99) Arterial Blood pH 7.38 (7.35-7.45) Arterial Blood pCO2 at Patient Temp 45 mmHg (35-46) Arterial Blood pO2 at Patient Temp 54 mmHg (75-108) Arterial Blood HCO3 26 mmol/L (21-28) Arterial Blood Base Excess 1 mmol/L (-3-3) FiO2 100% Sodium Level 142 mmol/L (136-145) Potassium Level 4.7 mmol/L (3.5-5.1) Chloride Level 108 mmol/L (98-107) Carbon Dioxide Level 28 mmol/L (21-32) Anion Gap 6 (6-14) Blood Urea Nitrogen 21 mg/dL (8-26) Creatinine 0.9 mg/dL (0.7-1.3) Estimated GFR (Cockcroft-Gault) 93.0 Glucose Level 134 mg/dL (70-99) Calcium Level 7.9 mg/dL (8.5-10.1) Phosphorus Level 4.7 mg/dL (2.6-4.7) Magnesium Level 2.3 mg/dL (1.8-2.4) Micro Microbiology 05/08/20 Gram Stain Evaluation - Final, Resulted 05/08/20 Respiratory Culture - Preliminary, Resulted 05/06/20 Urine Culture - Final, Complete 05/06/20 Blood Culture - Preliminary, Resulted NO GROWTH AFTER 4 DAYS Objective Assessment 1. Fever 2. COVID-19 infection. 3. Acute hypoxic respiratory failure.S/P Intubation 4. Pneumonia 5. Hyponatremia. 6. Morbid obesity. 7. Smoker. 8. Transaminitis. 9. Anemia. 10. Uncontrolled hypertension. Plan Plan of Care Continue Zosyn and azithromycin. Continue supportive care. Monitor labs and cultures. On steroids Pulmonary team following Discussed with nursing staff OUMAR MAZARIEGOS MD May 11, 2020 07:43
--- NOTE | 2020-05-11 07:48 | PDOC ---
[employer] PROGRESS NOTE Date of Service DOS: DATE: 05/11/20 TIME: 07:44 Chief Complaint Chief Complaint VTE Prophylaxis Ordered VTE Prophylaxis Devices: Yes VTE Pharmacological Prophylaxi: Yes Assessment/Plan Assessment/Plan Impression: Primary Impression: Fever secondary to viremia , sepsis Transaminitis Hyponatremia Acute hypoxic respiratory failure Extensive infiltrates throughout BILATERAL lung lord, concerning for covid/ SARS morbid obesity dvt prophylaxis, lovenox tobacco abuse disorder uncontrolled hypertension Intubated 2/2 respiratory decompensation Fever and tachycardia Remains vent 100% and PEEP of 12 prominent air-filled bowel throughout the visualized upper abdomen which are similar compared to the prior study. MORBID OBESITY plan admit blood cultures icu bed emperic iv antibiotics consult pulmonary follow lytes gi prophylaxis iv labetalol 5-10mg q 3 hrs prn bp support iv decadron 6 mg bid pepsid 20mg po bid zinc 220mg po daily, vitamin c, vitamin D SPUTUM CULTURE ID CONSULT IV ZOSYN TPN FiO2 100% PEEP of 12 40 min cc time History of Present Illness History of Present Illness Identification/Chief Complaint Chief Complaint seen in er with acute resp distress, known COVID POSITIVE 40-year-old male who arrives ambulatory to the emergency department complaining progressive difficulty breathing., breathing today has become considerably more labored than it has in the past 2 days. Patient reports on 05-04 he was diagnosed with coronavirus. TEMP on arrival 103.2 F abg c/w resp alkalosis and hypoxia he has become progressively more short of breath and states he has mild chest tightness. HYPOXIC, alert and ill-appearing. 05/11 Patient seen and evaluated in COVID-19 ICU. He is on vent, FiO2 100%, PEEP 12. He is febrile today. Continue antibiotic coverage with Zosyn. Continue steroids and supportive care. Charts and labs reviewed, LFTs improving. Vitals/I&O Vitals/I&O: Vital Signs Date Time Temp Pulse Resp B/P (MAP) Pulse Ox O2 Delivery O2 Flow Rate FiO2 05/11/20 07:00 101.3 76 30 124/68 (86) 91 Ventilator 101.3 I & O 05/10/20 05/10/20 05/11/20 14:59 22:59 06:59 Intake Total 450 ml 1498 ml 2296 ml Output Total 575 ml 625 ml 1200 ml Balance -125 ml 873 ml 1096 ml Physical Exam Physical Exam: GENERAL: Intubated and sedated male in no acute distress. HEENT: Normocephalic, atraumatic. ETT and OGT tube present. NECK: Supple. LUNGS: Decreased breath sounds. HEART: S1, S2, no murmurs. ABDOMEN: Soft, obese, nontender. Mildly distended. EXTREMITIES: No edema, no cyanosis. DERMATOLOGIC: Warm and dry. No generalized rash. NEUROLOGIC: Intubated. PSYCHIATRIC: Unable to obtain. General: No acute distress Heart: Regular rate (SR), Other (distant heart sounds) Abdomen: Other (distended and firm) Extremities: No clubbing, No cyanosis, Other (trace LE edema) Skin: No breakdown, No significant lesion Labs Labs: Laboratory Tests Test 05/10/20 08:00 05/11/20 06:00 O2 Saturation 86 % (92-99) Arterial Blood pH 7.38 (7.35-7.45) Arterial Blood pCO2 at Patient Temp 45 mmHg (35-46) Arterial Blood pO2 at Patient Temp 54 mmHg (75-108) Arterial Blood HCO3 26 mmol/L (21-28) Arterial Blood Base Excess 1 mmol/L (-3-3) FiO2 100% Sodium Level 142 mmol/L (136-145) Potassium Level 4.7 mmol/L (3.5-5.1) Chloride Level 108 mmol/L (98-107) Carbon Dioxide Level 28 mmol/L (21-32) Anion Gap 6 (6-14) Blood Urea Nitrogen 21 mg/dL (8-26) Creatinine 0.9 mg/dL (0.7-1.3) Estimated GFR (Cockcroft-Gault) 93.0 Glucose Level 134 mg/dL (70-99) Calcium Level 7.9 mg/dL (8.5-10.1) Phosphorus Level 4.7 mg/dL (2.6-4.7) Magnesium Level 2.3 mg/dL (1.8-2.4) Assessment and Plan Assessmemt and Plan Problems Medical Problems: (1) COVID-19 Status: Acute (2) Hyponatremia Status: Acute (3) Respiratory failure Status: Acute (4) Transaminitis Status: Acute Comment Review of Relevant I have reviewed the following items kush (where applicable) has been applied. Medications: Current Medications Medications (Trade) Dose Ordered Sig/Eri Route PRN Reason Start Time Stop Time Status Last Admin Dose Admin Vecuronium [place] 50 mg/ Miscellaneous 50 ml @ 5.64 mls/hr CONT PRN IV SEE I/O RECORD 05/10/20 09:45 05/10/20 21:40 Info (Tpn Per Pharmacy) 1 each PRN DAILY PRN MC SEE COMMENTS 05/10/20 12:15 05/10/20 13:07 Sodium Acetate 90 meq/Potassium Chloride 50 meq/ Potassium Phosphate 13.6 mmol/Magnesium Sulfate 10 meq/ Calcium Gluconate 10 meq/ Multivitamins 5 ml/Zinc/Copper/ Manganese/ Selenium 1 ml/ Total Parenteral Nutrition/Amino Acids/Dextrose/ Fat Emulsion Intravenous 1,512 ml @ 63 mls/hr TPN CONT IV 05/10/20 22:00 05/11/20 21:59 05/10/20 21:39 Justifications for Admission General Conditions Poss tachycardia?: Yes Justification for admission: Patient has tachycardia (> 100 beats per minute) which is not readily corrected by appropriate treatment within 12 to 24 hours. acute hypoxic resp failure Other Justification KELSEY LEAL MD May 11, 2020 07:48
[2020-05-11] MEDS: PANTOPRAZOLE IV PUSH 40 MG VIAL. IVP SCH (08:09)
[2020-05-11] MEDS: ENOXAPARIN 40 MG/0.4 ML SYRINGE. SQ SCH (08:10)
[2020-05-11] MEDS: CHOLECALCIFEROL (VITAMIN D3) 1,000 UNIT TABLET PO SCH (08:10)
[2020-05-11] MEDS: DEXAMETHASONE SOD PHOS 4 MG/ML VIAL IVP SCH (08:10)
[2020-05-11] MEDS: ASCORBIC ACID 500 MG TABLET PO SCH (08:11)
[2020-05-11] MEDS: amLODIPine BESYLATE 10 MG TABLET PO SCH (08:11)
[2020-05-11] MEDS: LACTOBACILLUS RHAMNOSUS GG 1 CAPSULE. PO SCH ×2 (08:11→21:01)
[2020-05-11] MEDS: ZINC SULFATE 220 MG CAPSULE. PO SCH (08:11)
--- NOTE | 2020-05-11 08:20 | RAD ---
XR CHEST 1V History: Reason: resp. failure / Spl. Instructions: / History: Comparison: May 08, 2020 Findings: Diffuse interstitial and alveolar opacities, increased compared to prior. Stable endotracheal tube, e nteric tube and right IJ central line. Unchanged heart size. No pneumothorax. No pleural effusion. Impression: 1. Increased diffuse interstitial and alveolar opacities. Electronically signed by: Stanislaw Baird DO (05/11/2020 8:18 AM) [id number]
[2020-05-11] MEDS: AZITHROMYCIN 500 MG in IV NORMAL SALINE 250ML 250 ML IV SCH (08:29)
[2020-05-11 08:58] LABS: BASE EXCESS ABG -1 mmol/L (-3-3); HCO3 ABG 26 mmol/L (21-28); PCO2 ABG 54 mmHg (35-46); PO2 ABG 51 mmHg (75-108); SAT O2 ABG 80 % (92-99)
[2020-05-11 08:59] LABS: FIO2 ABG 100
[2020-05-11 09:39] LABS: BASO # 0.1 x10^3/uL (0.0-0.2); BASO % 1 % (0-3); EOS # 0.1 x10^3/uL (0.0-0.7); EOS % 1 % (0-3); HEMOGLOBIN 10.5 g/dL (13.0-17.5); LYMPH % 10 % (24-48); MEAN CORPUSCULAR HEMOGLOBIN 29 pg (25-35); MEAN CORPUSCULAR HGB CONC 33 g/dL (31-37); MEAN CORPUSCULAR VOLUME 87 fL (79-100); MONO # 0.6 x10^3/uL (0.0-1.1); MONO % 6 % (0-9); NEUT # 8.5 x10^3/uL (1.8-7.7); NEUT % 82 % (31-73); PLATELET COUNT 226 x10^3/uL (140-400); RED BLOOD COUNT 3.69 x10^6/uL (4.30-5.70); WHITE BLOOD COUNT 10.3 x10^3/uL (4.0-11.0)
--- NOTE | 2020-05-11 11:23 | PDOC ---
PULMONARY PROGRESS NOTES DATE: 05/11/20 TIME: 11:23 Subjective Remains vent 100% and PEEP of 12 Febrile overnight Hypoxia on examination this morning despite ventilatory support, oxygen saturation 82% PT. is now DNR Vitals Vital Signs Date Time Temp Pulse Resp B/P (MAP) Pulse Ox O2 Delivery O2 Flow Rate FiO2 05/11/20 11:00 99.3 110 30 168/78 (108) 61 Ventilator 99.3 Comments Pt. seen during , visual exam preformed RRR accessory muscle use no rash or edema intubated Lungs: Crackles Labs Laboratory Tests Test 05/10/20 08:00 05/11/20 06:00 05/11/20 08:15 O2 Saturation 86 % (92-99) 80 % (92-99) Arterial Blood pH 7.38 (7.35-7.45) 7.30 (7.35-7.45) Arterial Blood pCO2 at Patient Temp 45 mmHg (35-46) 54 mmHg (35-46) Arterial Blood pO2 at Patient Temp 54 mmHg (75-108) 51 mmHg (75-108) Arterial Blood HCO3 26 mmol/L (21-28) 26 mmol/L (21-28) Arterial Blood Base Excess 1 mmol/L (-3-3) -1 mmol/L (-3-3) FiO2 100% 100 White Blood Count 10.3 x10^3/uL (4.0-11.0) Red Blood Count 3.69 x10^6/uL (4.30-5.70) Hemoglobin 10.5 g/dL (13.0-17.5) Hematocrit 32.0 % (39.0-53.0) Mean Corpuscular Volume 87 fL (79-100) Mean Corpuscular Hemoglobin 29 pg (25-35) Mean Corpuscular Hemoglobin Concent 33 g/dL (31-37) Red Cell Distribution Width 14.0 % (11.5-14.5) Platelet Count 226 x10^3/uL (140-400) Neutrophils (%) (Auto) 82 % (31-73) Lymphocytes (%) (Auto) 10 % (24-48) Monocytes (%) (Auto) 6 % (0-9) Eosinophils (%) (Auto) 1 % (0-3) Basophils (%) (Auto) 1 % (0-3) Neutrophils # (Auto) 8.5 x10^3/uL (1.8-7.7) Lymphocytes # (Auto) 1.0 x10^3/uL (1.0-4.8) Monocytes # (Auto) 0.6 x10^3/uL (0.0-1.1) Eosinophils # (Auto) 0.1 x10^3/uL (0.0-0.7) Basophils # (Auto) 0.1 x10^3/uL (0.0-0.2) Sodium Level 142 mmol/L (136-145) Potassium Level 4.7 mmol/L (3.5-5.1) Chloride Level 108 mmol/L (98-107) Carbon Dioxide Level 28 mmol/L (21-32) Anion Gap 6 (6-14) Blood Urea Nitrogen 21 mg/dL (8-26) Creatinine 0.9 mg/dL (0.7-1.3) Estimated GFR (Cockcroft-Gault) 93.0 Glucose Level 134 mg/dL (70-99) Calcium Level 7.9 mg/dL (8.5-10.1) Phosphorus Level 4.7 mg/dL (2.6-4.7) Magnesium Level 2.3 mg/dL (1.8-2.4) Laboratory Tests Test 05/11/20 06:00 05/11/20 08:15 White Blood Count 10.3 x10^3/uL (4.0-11.0) Red Blood Count 3.69 x10^6/uL (4.30-5.70) Hemoglobin 10.5 g/dL (13.0-17.5) Hematocrit 32.0 % (39.0-53.0) Mean Corpuscular Volume 87 fL (79-100) Mean Corpuscular Hemoglobin 29 pg (25-35) Mean Corpuscular Hemoglobin Concent 33 g/dL (31-37) Red Cell Distribution Width 14.0 % (11.5-14.5) Platelet Count 226 x10^3/uL (140-400) Neutrophils (%) (Auto) 82 % (31-73) Lymphocytes (%) (Auto) 10 % (24-48) Monocytes (%) (Auto) 6 % (0-9) Eosinophils (%) (Auto) 1 % (0-3) Basophils (%) (Auto) 1 % (0-3) Neutrophils # (Auto) 8.5 x10^3/uL (1.8-7.7) Lymphocytes # (Auto) 1.0 x10^3/uL (1.0-4.8) Monocytes # (Auto) 0.6 x10^3/uL (0.0-1.1) Eosinophils # (Auto) 0.1 x10^3/uL (0.0-0.7) Basophils # (Auto) 0.1 x10^3/uL (0.0-0.2) Sodium Level 142 mmol/L (136-145) Potassium Level 4.7 mmol/L (3.5-5.1) Chloride Level 108 mmol/L (98-107) Carbon Dioxide Level 28 mmol/L (21-32) Anion Gap 6 (6-14) Blood Urea Nitrogen 21 mg/dL (8-26) Creatinine 0.9 mg/dL (0.7-1.3) Estimated GFR (Cockcroft-Gault) 93.0 Glucose Level 134 mg/dL (70-99) Calcium Level 7.9 mg/dL (8.5-10.1) Phosphorus Level 4.7 mg/dL (2.6-4.7) Magnesium Level 2.3 mg/dL (1.8-2.4) O2 Saturation 80 % (92-99) Arterial Blood pH 7.30 (7.35-7.45) Arterial Blood pCO2 at Patient Temp 54 mmHg (35-46) Arterial Blood pO2 at Patient Temp 51 mmHg (75-108) Arterial Blood HCO3 26 mmol/L (21-28) Arterial Blood Base Excess -1 mmol/L (-3-3) FiO2 100 Comments CXR 05/11/20 Impression: 1. Increased diffuse interstitial and alveolar opacities. Impression . IMPRESSION: 1. Acute respiratory failure secondary to COVID-19 viral pneumonia, worsening, now requiring intubation 2. COVID-19 viral pneumonia. 3. Possible bacterial pneumonia. 4. Hypertension. 5. Obesity. 6. Tobacco dependent. 7. Elevated liver chemistries. Plan . PLAN: continue vent support pressure control, assist control/pressure control of 30, 100% and a PEEP of 12 Follow ABG/CXR, Adequate sedation, as needed paralytics as needed Symptomatic treatment of fever The patient is not a candidate for remdesivir 2/2 elevated LFTs and timing of positive test Continue steroids for full 10 day course, started on 05/06 Continue empiric antibiotics per infectious disease Start heparin gtt for empiric treatment of possible PE Follow cardiology recs Continue tube feeding for nutritional support, tolerating well DVT/GI PPX D/W RN and RT Pt. is DNR Poor prognosis Critical care time 1000-1030AM ADDISON LONDON MD May 11, 2020 11:23
[2020-05-11] MEDS: TPN PER PHARMACY MC PRN (11:45)
--- NOTE | 2020-05-11 11:45 | NUR ---
Pharmacy TPN Dosing Note S: ARIANNE JARVIS is a 40 year old M Currently receiving Central Continuous TPN started 05/10/20 B:Pertinent PMH: NPO Height: 5 feet, 8 inches Weight: 124.258505 kg Current diet: NPO LABS: Sodium: 142 Potassium: 4.7 Chloride: 108 Calcium: 7.9 Corrected Calcium: 9.66 Magnesium: 2.3 CO2: 28 SCr: 0.9 Glucose: 131-134 Albumin: 1.8 AST: 36 ALT: 76 TPN FORMULA: TPN TYPE: Central Continuous AMINO ACIDS: 60 gm DEXTROSE: 195 gm LIPIDS: 20 gm SODIUM CHLORIDE: mEq SODIUM ACETATE: 90 mEq SODIUM PHOSPHATE: mmol POTASSIUM CHLORIDE: 30 mEq POTASSIUM ACETATE: mEq POTASSIUM PHOSPHATE: 13.6 mmol MAGNESIUM: 10 mEq CALCIUM: 10 mEq INSULIN: units MULTIPLE VITAMIN: 5 ml TRACE ELEMENTS: 1 ml(s) TPN PLAN: Increased macros per dietary recs. K high normal, decreased from 50 to 30 meq in TPN. Trig 327 on 05/09, keep lipids in TPN and monitor, okay as long as <400. BMP, phos, mag, trig in AM. R: Continue TPN ABOVE. Will monitor electrolytes, glucose, and tolerance to TPN. BRISA WRIGHT [facility], 05/11/20 [id number]
--- NOTE | 2020-05-11 11:54 | NUR ---
Patient's [facility] [phone] requested a Do Not Resuscitate. Telephone consent by this nurse and Ruddy Lopes, LISA. Will monitor.
[2020-05-11] MEDS ORDERED: HEPARIN for IV BOLUS 10,000 UNIT/10 ML VIAL. IV PRN (12:00)
[2020-05-11] MEDS: IV NORMAL SALINE 1000ML BAG 1,000 ML IV SCH ×2 (12:11→12:20)
[2020-05-11] MEDS: HEPARIN 25,000UTS/250ML PREMIX 250 ML IV PRN ×2 (12:52→23:46)
[2020-05-11] MEDS ORDERED: FUROSEMIDE 100 MG/10 ML VIAL. IVP ONE (14:00)
--- NOTE | 2020-05-11 15:34 | NUR ---
SS following up with discharge planning. SS reviewed pt chart and discussed with pt RN. Pt is currently on the vent at 100%. COVID19 positive. DNR. Pt on versed, fentanyl, Precedex, TPN, IV Zosyn, and IV Azithromycin. Not stable. SS will continue to follow for discharge planning.
[2020-05-11] MEDS: VECURONIUM BROMIDE 50 MG in TOTAL VOLUME 50 ML IV PRN (17:17)
--- NOTE | 2020-05-11 18:16 | PDOC ---
PROGRESS NOTES Date of Service DATE: 05/11/20 TIME: 18:14 Subjective Subjective Patient seen and evaluated Objective Objective Vital Signs Date Time Temp Pulse Resp B/P (MAP) Pulse Ox O2 Delivery O2 Flow Rate FiO2 05/11/20 17:00 100.2 77 30 145/71 (95) 80 Ventilator 100.2 05/11/20 14:47 40.0 Intake and Output 05/11/20 07:00 Intake Total 4244 ml Output Total 2400 ml Balance 1844 ml IV Total 4144 ml Tube Feeding 100 ml Output Urine Total 2100 ml Gastric Drainage Total 300 ml Physical Exam Physical Exam Visual examination secondary to Covid status Assessment Assessment Problems Medical Problems: (1) COVID-19 Status: Acute (2) Hyponatremia Status: Acute (3) Respiratory failure Status: Acute (4) Transaminitis Status: Acute Acute respiratory failure with Covid- 19 Pneumonia. Intubated. Continuing medications and ventilator management followed by pulmonary and ID. The patient has been made a DNR. HTN urgency. Blood pressure improved. We will continue present treatments and monitor. Mild transaminitis Abdominal pain. Evaluation as above. Reactive sinus tachycardia. Resolved. Comment Review of Relevant I have reviewed the following items kush (where applicable) has been applied. Labs Laboratory Tests Test 05/10/20 08:00 05/11/20 06:00 05/11/20 08:15 O2 Saturation 86 % (92-99) 80 % (92-99) Arterial Blood pH 7.38 (7.35-7.45) 7.30 (7.35-7.45) Arterial Blood pCO2 at Patient Temp 45 mmHg (35-46) 54 mmHg (35-46) Arterial Blood pO2 at Patient Temp 54 mmHg (75-108) 51 mmHg (75-108) Arterial Blood HCO3 26 mmol/L (21-28) 26 mmol/L (21-28) Arterial Blood Base Excess 1 mmol/L (-3-3) -1 mmol/L (-3-3) FiO2 100% 100 White Blood Count 10.3 x10^3/uL (4.0-11.0) Red Blood Count 3.69 x10^6/uL (4.30-5.70) Hemoglobin 10.5 g/dL (13.0-17.5) Hematocrit 32.0 % (39.0-53.0) Mean Corpuscular Volume 87 fL (79-100) Mean Corpuscular Hemoglobin 29 pg (25-35) Mean Corpuscular Hemoglobin Concent 33 g/dL (31-37) Red Cell Distribution Width 14.0 % (11.5-14.5) Platelet Count 226 x10^3/uL (140-400) Neutrophils (%) (Auto) 82 % (31-73) Lymphocytes (%) (Auto) 10 % (24-48) Monocytes (%) (Auto) 6 % (0-9) Eosinophils (%) (Auto) 1 % (0-3) Basophils (%) (Auto) 1 % (0-3) Neutrophils # (Auto) 8.5 x10^3/uL (1.8-7.7) Lymphocytes # (Auto) 1.0 x10^3/uL (1.0-4.8) Monocytes # (Auto) 0.6 x10^3/uL (0.0-1.1) Eosinophils # (Auto) 0.1 x10^3/uL (0.0-0.7) Basophils # (Auto) 0.1 x10^3/uL (0.0-0.2) Sodium Level 142 mmol/L (136-145) Potassium Level 4.7 mmol/L (3.5-5.1) Chloride Level 108 mmol/L (98-107) Carbon Dioxide Level 28 mmol/L (21-32) Anion Gap 6 (6-14) Blood Urea Nitrogen 21 mg/dL (8-26) Creatinine 0.9 mg/dL (0.7-1.3) Estimated GFR (Cockcroft-Gault) 93.0 Glucose Level 134 mg/dL (70-99) Calcium Level 7.9 mg/dL (8.5-10.1) Phosphorus Level 4.7 mg/dL (2.6-4.7) Magnesium Level 2.3 mg/dL (1.8-2.4) Laboratory Tests Test 05/11/20 06:00 05/11/20 08:15 White Blood Count 10.3 x10^3/uL (4.0-11.0) Red Blood Count 3.69 x10^6/uL (4.30-5.70) Hemoglobin 10.5 g/dL (13.0-17.5) Hematocrit 32.0 % (39.0-53.0) Mean Corpuscular Volume 87 fL (79-100) Mean Corpuscular Hemoglobin 29 pg (25-35) Mean Corpuscular Hemoglobin Concent 33 g/dL (31-37) Red Cell Distribution Width 14.0 % (11.5-14.5) Platelet Count 226 x10^3/uL (140-400) Neutrophils (%) (Auto) 82 % (31-73) Lymphocytes (%) (Auto) 10 % (24-48) Monocytes (%) (Auto) 6 % (0-9) Eosinophils (%) (Auto) 1 % (0-3) Basophils (%) (Auto) 1 % (0-3) Neutrophils # (Auto) 8.5 x10^3/uL (1.8-7.7) Lymphocytes # (Auto) 1.0 x10^3/uL (1.0-4.8) Monocytes # (Auto) 0.6 x10^3/uL (0.0-1.1) Eosinophils # (Auto) 0.1 x10^3/uL (0.0-0.7) Basophils # (Auto) 0.1 x10^3/uL (0.0-0.2) Sodium Level 142 mmol/L (136-145) Potassium Level 4.7 mmol/L (3.5-5.1) Chloride Level 108 mmol/L (98-107) Carbon Dioxide Level 28 mmol/L (21-32) Anion Gap 6 (6-14) Blood Urea Nitrogen 21 mg/dL (8-26) Creatinine 0.9 mg/dL (0.7-1.3) Estimated GFR (Cockcroft-Gault) 93.0 Glucose Level 134 mg/dL (70-99) Calcium Level 7.9 mg/dL (8.5-10.1) Phosphorus Level 4.7 mg/dL (2.6-4.7) Magnesium Level 2.3 mg/dL (1.8-2.4) O2 Saturation 80 % (92-99) Arterial Blood pH 7.30 (7.35-7.45) Arterial Blood pCO2 at Patient Temp 54 mmHg (35-46) Arterial Blood pO2 at Patient Temp 51 mmHg (75-108) Arterial Blood HCO3 26 mmol/L (21-28) Arterial Blood Base Excess -1 mmol/L (-3-3) FiO2 100 Microbiology 05/08/20 Gram Stain Evaluation - Final, Complete 05/08/20 Respiratory Culture - Final, Complete 05/06/20 Urine Culture - Final, Complete 05/06/20 Blood Culture - Final, Complete NO GROWTH AFTER 5 DAYS Medications Current Medications Levofloxacin/ Dextrose 150 ml @ 100 mls/hr 1X ONCE IV Last administered on 05/06/20at 15:25; Start 05/06/20 at 15:00; Stop 05/06/20 at 16:29; Status DC Methylprednisolone Sodium Succinate (SOLU-Medrol 125MG VIAL) 125 mg 1X ONCE IV Last administered on 05/06/20at 15:24; Start 05/06/20 at 15:00; Stop 05/06/20 at 15:01; Status DC Sodium Chloride 1,000 ml @ 1,000 mls/hr 1X ONCE IV Last administered on 05/06/20at 15:25; Start 05/06/20 at 15:00; Stop 05/06/20 at 15:59; Status DC Acetaminophen (Tylenol) 1,000 mg 1X ONCE PO Last administered on 05/06/20at 16:21; Start 05/06/20 at 16:15; Stop 05/06/20 at 16:16; Status DC Dexamethasone Sodium Phosphate (Decadron) 6 mg BID IVP Last administered on 05/07/20at 08:41; Start 05/06/20 at 21:00; Stop 05/07/20 at 10:06; Status DC Ceftriaxone Sodium (Rocephin) 1 gm Q24H IVP Last administered on 05/07/20at 17:25; Start 05/06/20 at 17:00; Stop 05/08/20 at 13:18; Status DC Azithromycin 250 ml @ 250 mls/hr 1X ONCE IV ; Start 05/06/20 at 16:30; Stop 05/06/20 at 17:29; Status Cancel Ceftriaxone Sodium (Rocephin) 1 gm DAILY08 IVP ; Start 05/07/20 at 08:00; Status UNV Sodium Chloride (Normal Saline Flush) 3 ml QSHIFT PRN IV AFTER MEDS AND BLOOD DRAWS; Start 05/06/20 at 16:30 Sodium Chloride 1,000 ml @ 120 mls/hr Q8H20M IV Last administered on 05/10/20at 23:59; Start 05/06/20 at 16:30; Stop 05/11/20 at 14:06; Status DC Ondansetron HCl (Zofran) 4 mg PRN Q4HRS PRN IV NAUSEA/VOMITING; Start 05/06/20 at 16:30 Acetaminophen (Tylenol) 650 mg PRN Q4HRS PRN PO TEMP OVER 100.4F OR MILD PAIN Last administered on 05/08/20at 10:26; Start 05/06/20 at 16:30; Stop 05/08/20 at 12:29; Status DC Al Hydroxide/Mg Hydroxide (Mylanta Plus Xs) 30 ml PRN DAILY PRN PO HEARTBURN / GAS; Start 05/06/20 at 16:30 Clonidine HCl (Catapres) 0.1 mg PRN Q6HRS PRN PO SBP>160 OR DBP>90 Last administered on 05/07/20at 21:03; Start 05/06/20 at 16:30 Sodium Monofluorophosphate (Fleet Adult) 133 ml PRN DAILY PRN [place] CONSTIPATION; Start 05/06/20 at 16:30 Docusate Sodium (Colace) 100 mg PRN BID PRN PO HARD STOOLS; Start 05/06/20 at 16:30 Albuterol Sulfate (Ventolin Neb Soln) 2.5 mg PRN Q4HRS PRN NEB SHORTNESS OF BREATH; Start 05/06/20 at 16:30 Guaifenesin (Robitussin) 200 mg PRN Q4HRS PRN PO COUGH Last administered on 05/08/20at 00:37; Start 05/06/20 at 16:30 Lorazepam (Ativan) 0.5 mg PRN Q4HRS PRN PO ANXIETY / AGITATION Last administered on 05/07/20at 05:09; Start 05/06/20 at 16:30; Stop 05/07/20 at 15:15; Status DC Enoxaparin Sodium (Lovenox 40mg Syringe) 40 mg Q24H SQ Last administered on 05/06/20at 17:29; Start 05/06/20 at 17:00; Stop 05/07/20 at 10:20; Status DC Azithromycin 500 mg/Sodium Chloride 250 ml @ 250 mls/hr Q24H IV Last administered on 05/11/20at 08:29; Start 05/07/20 at 09:00 Iohexol (Omnipaque 350 Mg/ml) 100 ml 1X ONCE IV Last administered on 05/06/20at 17:04; Start 05/06/20 at 16:45; Stop 05/06/20 at 16:46; Status DC Info (CONTRAST GIVEN -- Rx MONITORING) 1 each PRN DAILY PRN [facility] SEE COMMENTS; Start 05/06/20 at 16:45; Stop 05/08/20 at 16:44; Status DC Dexamethasone Sodium Phosphate (Decadron) 6 mg BID IVP ; Start 05/07/20 at 09:00; Status UNV Ascorbic Acid (Vitamin C) 500 mg DAILY PO Last administered on 05/11/20 08:11; Start 05/07/20 at 09:00 Famotidine (Pepcid) 20 mg BID PO Last administered on 05/08/20at 22:20; Start 05/07/20 at 09:00; Stop 05/09/20 at 07:31; Status DC Vitamin D (Vitamin D3) 2,000 unit DAILY PO Last administered on 05/11/20 08:10; Start 05/07/20 at 09:00 Zinc Sulfate (Orazinc) 220 mg DAILY PO Last administered on 05/11/20 08:11; Start 05/07/20 at 09:00 Labetalol HCl (Normodyne Iv Push) 10 mg PRN Q3HRS PRN IVP HYPERTENSION Last administered on 05/07/20at 18:13; Start 05/07/20 at 08:30 Amlodipine Besylate (Norvasc) 10 mg DAILY PO Last administered on 05/11/20 08:11; Start 05/07/20 at 09:00 Isosorbide Mononitrate (Imdur) 60 mg DAILY PO ; Start 05/07/20 at 09:00; Stop 05/09/20 at 07:31; Status DC Dexamethasone Sodium Phosphate (Decadron) 6 mg DAILY IVP Last administered on 05/11/20 08:10; Start 05/08/20 at 09:00 Thiamine HCl 100 mg/Folic Acid 1 mg/Sodium Chloride 1,001.2 ml @ 990.198 mls/hr 1X ONCE IV Last administered on 05/07/20at 12:44; Start 05/07/20 at 10:15; Stop 05/07/20 at 11:15; Status DC Enoxaparin Sodium (Lovenox 40mg Syringe) 40 mg BID SQ Last administered on 05/11/20at 08:10; Start 05/07/20 at 11:00; Stop 05/11/20 at 12:01; Status DC Lactobacillus Rhamnosus (Culturelle) 1 cap BID PO Last administered on 05/11/20at 08:11; Start 05/07/20 at 21:00 Sterile Water (WATER for RESP) 1,000 ml CONT PRN INH VIA VAPOTHERM DEVICE Last administered on 05/07/20at 21:05; Start 05/07/20 at 12:15 Lorazepam (Ativan Inj) 0.5 mg PRN Q4HRS PRN IVP ANXIETY / AGITATION Last administered on 05/08/20at 01:14; Start 05/07/20 at 15:15 Dexmedetomidine HCl 400 mcg/ Sodium Chloride 100 ml @ 0 mls/hr CONT PRN IV PER PROTOCOL Last administered on 05/11/20at 17:16; Start 05/08/20 at 06:45 Fentanyl Citrate (Fentanyl 2ml Vial) 25 mcg PRN Q1HR PRN IV SEVERE PAIN 7-10; Start 05/08/20 at 06:45 Propofol 100 ml @ As Directed STK-MED ONCE IV ; Start 05/08/20 at 07:19; Stop 05/08/20 at 07:19; Status DC Succinylcholine Chloride (Anectine) 200 mg STK-MED ONCE .ROUTE ; Start 05/08/20 at 07:19; Stop 05/08/20 at 07:20; Status DC Fentanyl Citrate 30 ml @ 0 mls/hr CONT PRN IV SEE PROTOCOL Last administered on 05/08/20at 12:21; Start 05/08/20 at 07:45; Stop 05/08/20 at 13:33; Status DC Propofol 100 ml @ 0 mls/hr CONT PRN IV PER PROTOCOL; Start 05/08/20 at 07:45 Chlorhexidine Gluconate (Peridex) 15 ml BID MM Last administered on 05/08/20at 10:26; Start 05/08/20 at 09:00; Stop 05/09/20 at 07:31; Status DC Midazolam HCl 100 ml @ 0 mls/hr CONT PRN IV SEE PROTOCOL Last administered on 05/11/20at 16:08; Start 05/08/20 at 07:45 Vecuronium [place] (Norcuron Bolus) 10 mg STK-MED ONCE IV ; Start 05/08/20 at 08:21; Stop 05/08/20 at 08:21; Status DC Pantoprazole Sodium (PROTONIX VIAL for IV PUSH) 40 mg DAILYAC IVP Last administered on 05/11/20at 08:09; Start 05/08/20 at 11:00 Vecuronium [place] (Norcuron Bolus) 10 mg 1X ONCE IV Last administered on 05/08/20at 11:07; Start 05/08/20 at 10:00; Stop 05/08/20 at 10:01; Status DC Norepinephrine Bitartrate 8 mg/ Dextrose 258 ml @ 22.736 mls/ hr CONT PRN IV PER PROTOCOL Last administered on 05/08/20at 11:14; Start 05/08/20 at 10:45 Vecuronium [place] (Norcuron Bolus) 5 mg 1X ONCE IV ; Start 05/08/20 at 10:45; Stop 05/08/20 at 10:46; Status Cancel Succinylcholine Chloride (Anectine) 200 mg 1X ONCE IV Last administered on 05/08/20at 11:08; Start 05/08/20 at 10:45; Stop 05/08/20 at 10:46; Status DC Vecuronium [place] (Norcuron Bolus) 6 mg PRN Q4HRS PRN IV AGITATION Last administered on 05/10/20at 07:20; Start 05/08/20 at 10:45; Stop 05/10/20 at 09:36; Status DC Acetaminophen (Tylenol) 650 mg PRN Q4HRS PRN PEG MILD PAIN / TEMP > 100.3'F Last administered on 05/11/20at 08:10; Start 05/08/20 at 12:30 Piperacillin Sod/ Tazobactam Sod (Zosyn Per Pharmacy) 1 each PRN DAILY PRN [facility] SEE COMMENTS; Start 05/08/20 at 13:15 Piperacillin Sod/ Tazobactam Sod 3.375 gm/Sodium Chloride 50 ml @ 100 mls/hr Q6HRS IV Last administered on 05/11/20at 17:24; Start 05/08/20 at 14:00 Fentanyl Citrate 2,750 ml @ 0 mls/hr CONT PRN IV SEE PROTOCOL Last administered on 05/08/20at 13:49; Start 05/08/20 at 13:45; Stop 05/08/20 at 17:54; Status DC Fentanyl Citrate 55 ml @ 0 mls/hr CONT PRN IV SEE PROTOCOL Last administered on 05/11/20at 14:47; Start 05/08/20 at 17:54 Vecuronium [place] (Norcuron Bolus) 6 mg PRN Q1HR PRN IV AGITATION; Start 05/10/20 at 09:45 Vecuronium [place] 50 mg/ Miscellaneous 50 ml @ 5.64 mls/hr CONT PRN IV SEE I/O RECORD Last administered on 05/11/20at 17:17; Start 05/10/20 at 09:45 Info (Tpn Per Pharmacy) 1 each PRN DAILY PRN MC SEE COMMENTS Last administered on 05/11/20at 11:45; Start 05/10/20 at 12:15 Sodium Acetate 90 meq/Potassium Chloride 50 meq/ Potassium Phosphate 13.6 mmol/Magnesium Sulfate 10 meq/ Calcium Gluconate 10 meq/ Multivitamins 5 ml/Zinc/Copper/ Manganese/ Selenium 1 ml/ Total Parenteral Nutrition/Amino Acids/Dextrose/ Fat Emulsion Intravenous 1,512 ml @ 63 mls/hr TPN CONT IV Last administered on 05/10/20at 21:39; Start 05/10/20 at 22:00; Stop 05/11/20 at 21 :59 Sodium Acetate 90 meq/Potassium Chloride 30 meq/ Potassium Phosphate 13.6 mmol/Magnesium Sulfate 10 meq/ Calcium Gluconate 10 meq/ Multivitamins 5 ml/Zinc/Copper/ Manganese/ Selenium 1 ml/ Total Parenteral Nutrition/Amino Acids/Dextrose/ Fat Emulsion Intravenous 1,512 ml @ 63 mls/hr TPN CONT IV ; Start 05/11/20 at 22:00; Stop 05/12/20 at 21:59 Heparin Sodium/ Dextrose 250 ml @ 19.936 mls/ hr CONT PRN IV PER PROTOCOL Last administered on 05/11/20at 12:52; Start 05/11/20 at 12:00 Heparin Sodium (Porcine) (Heparin Sodium) 3,750 unit PRN Q6HRS PRN IV FOR UFH LEVEL LESS THAN 0.2; Start 05/11/20 at 12:00 Heparin Sodium (Porcine) (Heparin Sodium) 1,850 unit PRN Q6HRS PRN IV FOR UFH LEVEL 0.2 - 0.29; Start 05/11/20 at 12:00 Furosemide (Lasix) 60 mg 1X ONCE IVP Last administered on 05/11/20at 14:00; Start 05/11/20 at 14:00; Stop 05/11/20 at 14:01; Status DC Vitals/I & O Vital Sign - Last 24 Hours 05/10/20 05/10/20 05/10/20 05/10/20 19:00 20:00 20:00 20:00 Temp 99.0 99.0 Pulse 64 64 Resp 30 30 B/P (MAP) 130/74 (92) 130/74 (92) Pulse Ox 89 89 O2 Delivery Ventilator Ventilator Mechanical Ventilator 05/10/20 05/10/20 05/10/20 05/10/20 20:46 21:00 22:00 23:00 Pulse 62 64 64 Resp 30 30 30 B/P (MAP) 134/76 (95) 138/80 (99) 138/78 (98) Pulse Ox 90 89 90 89 O2 Delivery Ventilator Ventilator Ventilator Ventilator 05/10/20 05/11/20 05/11/20 05/11/20 23:35 00:00 00:00 00:00 Temp 99.0 99.0 Pulse 66 Resp 30 B/P (MAP) 134/74 (94) Pulse Ox 89 89 O2 Delivery Ventilator Ventilator Mechanical Ventilator 05/11/20 05/11/20 05/11/20 05/11/20 01:00 01:38 02:00 02:38 Temp 100.0 100.0 Pulse 68 74 Resp 30 30 B/P (MAP) 132/73 (92) 140/74 (96) Pulse Ox 89 87 O2 Delivery Ventilator Ventilator Ventilator Ventilator 05/11/20 05/11/20 05/11/20 05/11/20 03:00 04:00 04:00 04:00 Temp 100.4 100.4 Pulse 74 78 Resp 30 30 B/P (MAP) 142/75 (97) 125/64 (84) Pulse Ox 87 91 O2 Delivery Ventilator Mechanical Ventilator Ventilator 05/11/20 05/11/20 05/11/20 05/11/20 05:00 05:16 06:00 07:00 Temp 101.1 101.3 101.1 101.3 Pulse 73 76 76 Resp 30 30 30 B/P (MAP) 124/66 (85) 115/59 (77) 124/68 (86) Pulse Ox 94 92 90 91 O2 Delivery Ventilator Ventilator Ventilator Ventilator 05/11/20 05/11/20 05/11/20 05/11/20 08:00 08:00 08:00 08:11 Temp 101.5 101.5 Pulse 94 89 Resp 30 B/P (MAP) 174/78 (110) 167/80 Pulse Ox 88 O2 Delivery Mechanical Ventilator Ventilator 05/11/20 05/11/20 05/11/20 05/11/20 08:15 09:00 10:00 11:00 Temp 101.5 100.8 99.3 101.5 100.8 99.3 Pulse 106 110 110 Resp 30 30 30 B/P (MAP) 166/80 (108) 166/82 (110) 168/78 (108) Pulse Ox 88 78 68 61 O2 Delivery Ventilator Ventilator Ventilator Ventilator 05/11/20 05/11/20 05/11/20 05/11/20 11:15 12:00 12:00 12:00 Temp 99.0 99.0 Pulse 98 Resp 30 B/P (MAP) 140/70 (93) Pulse Ox 80 61 O2 Delivery Ventilator Ventilator Mechanical Ventilator 05/11/20 05/11/20 05/11/20 05/11/20 13:00 14:00 14:47 15:00 Temp 99.0 99.5 99.9 99.0 99.5 99.9 Pulse 92 85 85 Resp 30 30 30 30 B/P (MAP) 158/66 (96) 130/70 (90) 170/84 (112) Pulse Ox 53 68 68 66 O2 Delivery Ventilator Ventilator Ventilator Ventilator O2 Flow Rate 40.0 05/11/20 05/11/20 05/11/20 05/11/20 15:20 15:39 15:39 15:50 Resp 30 B/P (MAP) Pulse Ox 68 88 O2 Delivery Ventilator Mechanical Ventilator Ventilator 05/11/20 05/11/20 05/11/20 16:00 16:00 17:00 Temp 100.2 100.2 100.2 100.2 Pulse 80 77 Resp 30 30 B/P (MAP) 148/71 (96) 145/71 (95) Pulse Ox 77 80 O2 Delivery Ventilator Ventilator Intake and Output 0 05/10/20 05/10/20 05/11/20 15:00 23:00 07:00 Intake Total 450 ml 1498 ml 2296 ml Output Total 575 ml 625 ml 1200 ml Balance -125 ml 873 ml 1096 ml Justifications for Admission General Conditions Poss tachycardia?: Yes Justification for admission: Patient has tachycardia (> 100 beats per minute) which is not readily corrected by appropriate treatment within 12 to 24 hours. acute hypoxic resp failure Other Justification NAMRATA ROYAL MD May 11, 2020 18:16
[2020-05-11] MEDS ORDERED: AMINO ACID IV SCH (22:00)
[2020-05-11] MEDS ORDERED: DEXTROSE 70% IV SCH (22:00)
[2020-05-11] MEDS ORDERED: [UNRECOGNIZED DRUG - OTHER] IV SCH (22:00)
[2020-05-11] MEDS ORDERED: TOTAL PARENTERAL NUTRITION IV SCH (22:00)
[2020-05-12] VITALS (24 sets, daily range): BP systolic 134–218; BP diastolic 60–90
[2020-05-12] MEDS: HEPARIN for IV BOLUS 10,000 UNIT/10 ML VIAL. IV PRN ×2 (00:58→11:46)
[2020-05-12] MEDS: DEXMEDETOMIDINE 400 MCG in IV NORMAL SALINE 100ML 96 ML IV PRN ×9 (01:15→23:20)
[2020-05-12] MEDS: MIDAZOLAM 100mg/100ml NS BAG 100 ML IV PRN ×3 (02:37→15:52)
[2020-05-12] MEDS: fentaNYL HIGH DOSE PCA 55 ML IV PRN ×2 (03:40→13:47)
[2020-05-12] MEDS: PIPERACILLIN/TAZOBACTAM 3.375 GM in IV NORMAL SALINE 50ML 50 ML IV SCH ×4 (05:47→23:54)
[2020-05-12] MEDS: VECURONIUM BROMIDE 50 MG in TOTAL VOLUME 50 ML IV PRN ×3 (05:48→17:26)
[2020-05-12] MEDS: ACETAMINOPHEN 650 MG/20.3 ML SOLUTION. PEG PRN (06:13)
[2020-05-12 06:59] LABS: HEMATOCRIT 32.9 % (39.0-53.0); HEMOGLOBIN 10.6 g/dL (13.0-17.5); RED BLOOD COUNT 3.81 x10^6/uL (4.30-5.70); RED CELL DISTRIBUTION WIDTH 13.8 % (11.5-14.5); WHITE BLOOD COUNT 12.7 x10^3/uL (4.0-11.0)
[2020-05-12 07:11] LABS: CREATININE 0.9 mg/dL (0.7-1.3); MAGNESIUM 2.1 mg/dL (1.8-2.4); PHOSPHORUS 3.7 mg/dL (2.6-4.7); POTASSIUM 4.1 mmol/L (3.5-5.1)
--- NOTE | 2020-05-12 07:28 | PDOC ---
[facility] [employer] PROGRESS NOTE Date of Service DOS: DATE: 05/12/20 TIME: 07:27 Chief Complaint Chief Complaint VTE Prophylaxis Ordered VTE Prophylaxis Devices: Yes VTE Pharmacological Prophylaxi: Yes Assessment/Plan Assessment/Plan Impression: Primary Impression: Fever secondary to viremia , sepsis Transaminitis Hyponatremia Acute hypoxic respiratory failure Extensive infiltrates throughout BILATERAL lung lord, concerning for covid/ SARS morbid obesity dvt prophylaxis, lovenox tobacco abuse disorder uncontrolled hypertension Intubated 2/2 respiratory decompensation Fever and tachycardia Remains vent 100% and PEEP of 12 prominent air-filled bowel throughout the visualized upper abdomen which are similar compared to the prior study. MORBID OBESITY plan admit blood cultures icu bed emperic iv antibiotics consult pulmonary follow lytes gi prophylaxis iv labetalol 5-10mg q 3 hrs prn bp support iv decadron 6 mg bid pepsid 20mg po bid zinc 220mg po daily, vitamin c, vitamin D SPUTUM CULTURE ID CONSULT IV ZOSYN TPN FiO2 100% PEEP of 12 40 min cc time History of Present Illness History of Present Illness Identification/Chief Complaint Chief Complaint seen in er with acute resp distress, known COVID POSITIVE 40-year-old male who arrives ambulatory to the emergency department complaining progressive difficulty breathing., breathing today has become considerably more labored than it has in the past 2 days. Patient reports on 05-04 he was diagnosed with coronavirus. TEMP on a rrival 103.2 F abg c/w resp alkalosis and hypoxia he has become progressively more short of breath and states he has mild chest tightness. HYPOXIC, alert and ill-appearing. 05/12: Patient seen in COVID-19 ICU. On ventilator, FiO2 100%, PEEP 12. Continue IV steroids. Continue antibiotic treatment with Zosyn azithromycin. Discussed with RN. 05/11 Patient seen and evaluated in COVID-19 ICU. He is on vent, FiO2 100%, PEEP 12. He is febrile today. Continue antibiotic coverage with Zosyn. Continue stero ids and supportive care. Charts and labs reviewed, LFTs improving. Vitals/I&O Vitals/I&O: Vital Signs Date Time Temp Pulse Resp B/P (MAP) Pulse Ox O2 Delivery O2 Flow Rate FiO2 05/12/20 07:00 101.8 87 30 156/65 (95) 70 Ventilator 101.8 05/11/20 14:47 40.0 I & O 05/11/20 05/11/20 05/12/20 15:00 23:00 07:00 Intake Total 930 ml 1366.60 ml 1973 ml Output Total 900 ml 3200 ml 550 ml Balance 30 ml -1833.40 ml 1423 ml Physical Exam Physical Exam: GENERAL: Intubated and sedated male in no acute distress. HEENT: Normocephalic, atraumatic. ETT and OGT tube present. NECK: Supple. LUNGS: Decreased breath sounds. HEART: S1, S2, no murmurs. ABDOMEN: Soft, obese, nontender. Mildly distended. EXTREMITIES: No edema, no cyanosis. DERMATOLOGIC: Warm and dry. No generalized rash. NEUROLOGIC: Intubated. PSYCHIATRIC: Unable to obtain. General: No acute distress Heart: Regular rate (SR), Other (distant heart sounds) Lungs: Crackles Abdomen: Other (distended and firm) Extremities: No clubbing, No cyanosis, Other (trace LE edema) Skin: No breakdown, No significant lesion Labs Labs: Laboratory Tests Test 05/11/20 08:15 05/11/20 18:30 05/11/20 21:17 05/12/20 00:30 O2 Saturation 80 % (92-99) Arterial Blood pH 7.30 (7.35-7.45) Arterial Blood pCO2 at Patient Temp 54 mmHg (35-46) Arterial Blood pO2 at Patient Temp 51 mmHg (75-108) Arterial Blood HCO3 26 mmol/L (21-28) Arterial Blood Base Excess -1 mmol/L (-3-3) FiO2 100 Heparin Anti-Xa Act, Unfractionated 0.36 IU/mL (0.30-0.70) 0.25 IU/mL (0.30-0.70) Glucose (Fingerstick) 150 mg/dL (70-99) Test 05/12/20 06:30 White Blood Count 12.7 x10^3/uL (4.0-11.0) Red Blood Count 3.81 x10^6/uL (4.30-5.70) Hemoglobin 10.6 g/dL (13.0-17.5) Hematocrit 32.9 % (39.0-53.0) Mean Corpuscular Volume 86 fL (79-100) Mean Corpuscular Hemoglobin 28 pg (25-35) Mean Corpuscular Hemoglobin Concent 32 g/dL (31-37) Red Cell Distribution Width 13.8 % (11.5-14.5) Platelet Count 253 x10^3/uL (140-400) Sodium Level 139 mmol/L (136-145) Potassium Level 4.1 mmol/L (3.5-5.1) Chloride Level 102 mmol/L (98-107) Carbon Dioxide Level 33 mmol/L (21-32) Anion Gap 4 (6-14) Blood Urea Nitrogen 21 mg/dL (8-26) Creatinine 0.9 mg/dL (0.7-1.3) Estimated GFR (Cockcroft-Gault) 93.0 Glucose Level 142 mg/dL (70-99) Calcium Level 8.0 mg/dL (8.5-10.1) Phosphorus Level 3.7 mg/dL (2.6-4.7) Magnesium Level 2.1 mg/dL (1.8-2.4) Triglycerides Level 207 mg/dL (0-150) Assessment and Plan Assessmemt and Plan Problems Medical Problems: (1) COVID-19 Status: Acute (2) Hyponatremia Status: Acute (3) Respiratory failure Status: Acute (4) Transaminitis Status: Acute Comment Review of Relevant I have reviewed the following items kush (where applicable) has been applied. Medications: Current Medications Medications (Trade) Dose Ordered Sig/Eri Route PRN Reason Start Time Stop Time Status Last Admin Dose Admin Sodium Acetate 90 meq/Potassium Chloride 30 meq/ Potassium Phosphate 13.6 mmol/Magnesium Sulfate 10 meq/ Calcium Gluconate 10 meq/ Multivitamins 5 ml/Zinc/Copper/ Manganese/ Selenium 1 ml/ Total Parenteral Nutrition/Amino Acids/Dextrose/ Fat Emulsion Intravenous 1,512 ml @ 63 mls/hr TPN CONT IV 05/11/20 22:00 05/12/20 21:59 05/11/20 21:01 Heparin Sodium/ Dextrose 250 ml @ 19.936 mls/ hr CONT PRN IV PER PROTOCOL 05/11/20 12:00 05/11/20 23:46 Heparin Sodium (Porcine) (Heparin Sodium) 1,850 unit PRN Q6HRS PRN IV FOR UFH LEVEL 0.2 - 0.29 05/11/20 12:00 05/12/20 00:58 Furosemide (Lasix) 60 mg 1X ONCE IVP 05/11/20 14:00 05/11/20 14:01 DC 05/11/20 14:00 Justifications for Admission General Conditions Poss tachycardia?: Yes Justification for admission: Patient has tachycardia (> 100 beats per minute) which is not readily corrected by appropriate treatment within 12 to 24 hours. acute hypoxic resp failure Other Justification KELSEY LEAL MD May 12, 2020 07:28
[2020-05-12] MEDS: CHOLECALCIFEROL (VITAMIN D3) 1,000 UNIT TABLET PO SCH (07:40)
[2020-05-12] MEDS: PANTOPRAZOLE IV PUSH 40 MG VIAL. IVP SCH (07:40)
[2020-05-12] MEDS: DEXAMETHASONE SOD PHOS 4 MG/ML VIAL IVP SCH (07:40)
[2020-05-12] MEDS: LACTOBACILLUS RHAMNOSUS GG 1 CAPSULE. PO SCH ×2 (07:41→20:20)
[2020-05-12] MEDS: ZINC SULFATE 220 MG CAPSULE. PO SCH (07:41)
[2020-05-12] MEDS: amLODIPine BESYLATE 10 MG TABLET PO SCH (07:41)
[2020-05-12] MEDS: ASCORBIC ACID 500 MG TABLET PO SCH (07:41)
[2020-05-12] MEDS: AZITHROMYCIN 500 MG in IV NORMAL SALINE 250ML 250 ML IV SCH (07:42)
--- NOTE | 2020-05-12 07:58 | PDOC ---
Infectious Disease Note Subjective Subjective Patient intubated/sedated FiO2 100% PEEP of 12 ROS ROS no n/v/d/ Vital Sign Vital Signs Vital Signs Date Time Temp Pulse Resp B/P (MAP) Pulse Ox O2 Delivery O2 Flow Rate FiO2 05/12/20 07:41 84 149/65 05/12/20 07:00 101.8 30 70 Ventilator 101.8 05/11/20 14:47 40.0 Physical Exam PHYSICAL EXAM GENERAL: Intubated and sedated male in no acute distress. HEENT: Normocephalic, atraumatic. ETT and OGT tube present. NECK: Supple. LUNGS: Decreased breath sounds. HEART: S1, S2, no murmurs. ABDOMEN: Soft, obese, nontender. Mildly distended. EXTREMITIES: No edema, no cyanosis. DERMATOLOGIC: Warm and dry. No generalized rash. NEUROLOGIC: Intubated. PSYCHIATRIC: Unable to obtain. Labs Lab Laboratory Tests Test 05/11/20 08:15 05/11/20 18:30 05/11/20 21:17 05/12/20 00:30 O2 Saturation 80 % (92-99) Arterial Blood pH 7.30 (7.35-7.45) Arterial Blood pCO2 at Patient Temp 54 mmHg (35-46) Arterial Blood pO2 at Patient Temp 51 mmHg (75-108) Arterial Blood HCO3 26 mmol/L (21-28) Arterial Blood Base Excess -1 mmol/L (-3-3) FiO2 100 Heparin Anti-Xa Act, Unfractionated 0.36 IU/mL (0.30-0.70) 0.25 IU/mL (0.30-0.70) Glucose (Fingerstick) 150 mg/dL (70-99) Test 05/12/20 06:30 White Blood Count 12.7 x10^3/uL (4.0-11.0) Red Blood Count 3.81 x10^6/uL (4.30-5.70) Hemoglobin 10.6 g/dL (13.0-17.5) Hematocrit 32.9 % (39.0-53.0) Mean Corpuscular Volume 86 fL (79-100) Mean Corpuscular Hemoglobin 28 pg (25-35) Mean Corpuscular Hemoglobin Concent 32 g/dL (31-37) Red Cell Distribution Width 13.8 % (11.5-14.5) Platelet Count 253 x10^3/uL (140-400) Heparin Anti-Xa Act, Unfractionated 0.20 IU/mL (0.30-0.70) Sodium Level 139 mmol/L (136-145) Potassium Level 4.1 mmol/L (3.5-5.1) Chloride Level 102 mmol/L (98-107) Carbon Dioxide Level 33 mmol/L (21-32) Anion Gap 4 (6-14) Blood Urea Nitrogen 21 mg/dL (8-26) Creatinine 0.9 mg/dL (0.7-1.3) Estimated GFR (Cockcroft-Gault) 93.0 Glucose Level 142 mg/dL (70-99) Calcium Level 8.0 mg/dL (8.5-10.1) Phosphorus Level 3.7 mg/dL (2.6-4.7) Magnesium Level 2.1 mg/dL (1.8-2.4) Triglycerides Level 207 mg/dL (0-150) Micro Microbiology 05/08/20 Gram Stain Evaluation - Final, Resulted 05/08/20 Respiratory Culture - Preliminary, Resulted 05/06/20 Urine Culture - Final, Complete 05/06/20 Blood Culture - Preliminary, Resulted NO GROWTH AFTER 4 DAYS Objective Assessment 1. Fever 2. COVID-19 infection. 3. Acute hypoxic respiratory failure.S/P Intubation 4. Pneumonia 5. Hyponatremia. 6. Morbid obesity. 7. Smoker. 8. Transaminitis. 9. Anemia. 10. Uncontrolled hypertension. Plan Plan of Care Continue Zosyn and azithromycin. Continue supportive care. Monitor labs and cultures. On steroids Pulmonary team following Discussed with nursing staff OUMAR MAZARIEGOS MD May 12, 2020 07:58
--- NOTE | 2020-05-12 08:48 | PDOC ---
PULMONARY PROGRESS NOTES DATE: 05/12/20 TIME: 08:45 Subjective Remains vent 100% and PEEP of 12 Febrile overnight Hypoxia on examination this morning despite ventilatory support, oxygen saturation 70's% PT. is now DNR Vitals Vital Signs Date Time Temp Pulse Resp B/P (MAP) Pulse Ox O2 Delivery O2 Flow Rate FiO2 05/12/20 07:41 84 149/65 05/12/20 07:00 101.8 30 70 Ventilator 101.8 05/11/20 14:47 40.0 Comments Pt. seen during covid- pandemic, visual exam preformed RRR accessory muscle use no rash or edema intubated Labs Laboratory Tests Test 05/11/20 06:00 05/11/20 08:15 05/11/20 18:30 05/11/20 21:17 White Blood Count 10.3 x10^3/uL (4.0-11.0) Red Blood Count 3.69 x10^6/uL (4.30-5.70) Hemoglobin 10.5 g/dL (13.0-17.5) Hematocrit 32.0 % (39.0-53.0) Mean Corpuscular Volume 87 fL (79-100) Mean Corpuscular Hemoglobin 29 pg (25-35) Mean Corpuscular Hemoglobin Concent 33 g/dL (31-37) Red Cell Distribution Width 14.0 % (11.5-14.5) Platelet Count 226 x10^3/uL (140-400) Neutrophils (%) (Auto) 82 % (31-73) Lymphocytes (%) (Auto) 10 % (24-48) Monocytes (%) (Auto) 6 % (0-9) Eosinophils (%) (Auto) 1 % (0-3) Basophils (%) (Auto) 1 % (0-3) Neutrophils # (Auto) 8.5 x10^3/uL (1.8-7.7) Lymphocytes # (Auto) 1.0 x10^3/uL (1.0-4.8) Monocytes # (Auto) 0.6 x10^3/uL (0.0-1.1) Eosinophils # (Auto) 0.1 x10^3/uL (0.0-0.7) Basophils # (Auto) 0.1 x10^3/uL (0.0-0.2) Sodium Level 142 mmol/L (136-145) Potassium Level 4.7 mmol/L (3.5-5.1) Chloride Level 108 mmol/L (98-107) Carbon Dioxide Level 28 mmol/L (21-32) Anion Gap 6 (6-14) Blood Urea Nitrogen 21 mg/dL (8-26) Creatinine 0.9 mg/dL (0.7-1.3) Estimated GFR (Cockcroft-Gault) 93.0 Glucose Level 134 mg/dL (70-99) Calcium Level 7.9 mg/dL (8.5-10.1) Phosphorus Level 4.7 mg/dL (2.6-4.7) Magnesium Level 2.3 mg/dL (1.8-2.4) O2 Saturation 80 % (92-99) Arterial Blood pH 7.30 (7.35-7.45) Arterial Blood pCO2 at Patient Temp 54 mmHg (35-46) Arterial Blood pO2 at Patient Temp 51 mmHg (75-108) Arterial Blood HCO3 26 mmol/L (21-28) Arterial Blood Base Excess -1 mmol/L (-3-3) FiO2 100 Heparin Anti-Xa Act, Unfractionated 0.36 IU/mL (0.30-0.70) Glucose (Fingerstick) 150 mg/dL (70-99) Test 05/12/20 00:30 05/12/20 06:30 Heparin Anti-Xa Act, Unfractionated 0.25 IU/mL (0.30-0.70) 0.20 IU/mL (0.30-0.70) White Blood Count 12.7 x10^3/uL (4.0-11.0) Red Blood Count 3.81 x10^6/uL (4.30-5.70) Hemoglobin 10.6 g/dL (13.0-17.5) Hematocrit 32.9 % (39.0-53.0) Mean Corpuscular Volume 86 fL (79-100) Mean Corpuscular Hemoglobin 28 pg (25-35) Mean Corpuscular Hemoglobin Concent 32 g/dL (31-37) Red Cell Distribution Width 13.8 % (11.5-14.5) Platelet Count 253 x10^3/uL (140-400) Sodium Level 139 mmol/L (136-145) Potassium Level 4.1 mmol/L (3.5-5.1) Chloride Level 102 mmol/L (98-107) Carbon Dioxide Level 33 mmol/L (21-32) Anion Gap 4 (6-14) Blood Urea Nitrogen 21 mg/dL (8-26) Creatinine 0.9 mg/dL (0.7-1.3) Estimated GFR (Cockcroft-Gault) 93.0 Glucose Level 142 mg/dL (70-99) Calcium Level 8.0 mg/dL (8.5-10.1) Phosphorus Level 3.7 mg/dL (2.6-4.7) Magnesium Level 2.1 mg/dL (1.8-2.4) Triglycerides Level 207 mg/dL (0-150) Laboratory Tests Test 05/11/20 18:30 05/11/20 21:17 05/12/20 00:30 05/12/20 06:30 Heparin Anti-Xa Act, Unfractionated 0.36 IU/mL (0.30-0.70) 0.25 IU/mL (0.30-0.70) 0.20 IU/mL (0.30-0.70) Glucose (Fingerstick) 150 mg/dL (70-99) White Blood Count 12.7 x10^3/uL (4.0-11.0) Red Blood Count 3.81 x10^6/uL (4.30-5.70) Hemoglobin 10.6 g/dL (13.0-17.5) Hematocrit 32.9 % (39.0-53.0) Mean Corpuscular Volume 86 fL (79-100) Mean Corpuscular Hemoglobin 28 pg (25-35) Mean Corpuscular Hemoglobin Concent 32 g/dL (31-37) Red Cell Distribution Width 13.8 % (11.5-14.5) Platelet Count 253 x10^3/uL (140-400) Sodium Level 139 mmol/L (136-145) Potassium Level 4.1 mmol/L (3.5-5.1) Chloride Level 102 mmol/L (98-107) Carbon Dioxide Level 33 mmol/L (21-32) Anion Gap 4 (6-14) Blood Urea Nitrogen 21 mg/dL (8-26) Creatinine 0.9 mg/dL (0.7-1.3) Estimated GFR (Cockcroft-Gault) 93.0 Glucose Level 142 mg/dL (70-99) Calcium Level 8.0 mg/dL (8.5-10.1) Phosphorus Level 3.7 mg/dL (2.6-4.7) Magnesium Level 2.1 mg/dL (1.8-2.4) Triglycerides Level 207 mg/dL (0-150) Comments CXR 05/11/20 Impression: 1. Increased diffuse interstitial and alveolar opacities. Impression . IMPRESSION: 1. Acute respiratory failure secondary to COVID-19 viral pneumonia,/ARDS, worsening hypoxia, 2. COVID-19 viral pneumonia. 3. Possible bacterial pneumonia. 4. Hypertension. 5. Obesity. 6. Tobacco dependent. 7. Elevated liver chemistries. Plan . PLAN: continue vent support pressure control,of 32, 100% and a PEEP of 12 Follow ABG/CXR,as needed Adequate sedation, as needed paralytics as needed Symptomatic treatment of fever Continue steroids for full 10 day course, started on 05/06 Continue empiric antibiotics per infectious disease Start heparin gtt for empiric treatment of possible PE Follow cardiology recs Continue tube feeding for nutritional support, tolerating well DVT/GI PPX D/W RN and RT Pt. is DNR Poor prognosis, not likely to survive Critical care time 7.30-8.00 SG BUENO MD May 12, 2020 08:48
[2020-05-12 08:57] LABS: BASE EXCESS ABG 7 mmol/L (-3-3); HCO3 ABG 33 mmol/L (21-28); PCO2 ABG 56 mmHg (35-46); SAT O2 ABG 80 % (92-99)
[2020-05-12 08:58] LABS: CORRECTED PCO2 ABG 60 mmHg; CORRECTED PH ABG 7.37; CORRECTED PO2 ABG 53 mmHg
[2020-05-12 09:08] LABS: PO2 ABG 48 mmHg (75-108)
[2020-05-12] MEDS: TPN PER PHARMACY MC PRN (11:35)
--- NOTE | 2020-05-12 11:36 | NUR ---
Pharmacy TPN Dosing Note S: ARIANNE JARVIS is a 40 year old M Currently receiving Central Continuous TPN started 05/10/20 B:Pertinent PMH: NPO Height: 5 feet, 8 inches Weight: 129.8 kg Current diet: NPO LABS: Sodium: 139 Potassium: 4.1 Chloride: 102 Calcium: 8.0 Corrected Calcium: 9.76 Magnesium: 2.1 CO2: 33 SCr: 0.9 Glucose: 142 Albumin: 1.8 AST: 36 ALT: 76 TPN FORMULA: TPN TYPE: Central Continuous AMINO ACIDS: 60 gm DEXTROSE: 195 gm LIPIDS: 20 gm SODIUM CHLORIDE: mEq SODIUM ACETATE: 90 mEq SODIUM PHOSPHATE: mmol POTASSIUM CHLORIDE: 30 mEq POTASSIUM ACETATE: mEq POTASSIUM PHOSPHATE: 20 mmol MAGNESIUM: 10 mEq CALCIUM: 10 mEq INSULIN: units MULTIPLE VITAMIN: 5 ml TRACE ELEMENTS: 1 ml(s) TPN PLAN: Drop in phos, will increase KPhos to 20mmol, no other changes, labs in the am R: Continue TPN as written above. Will monitor electrolytes, glucose, and tolerance to TPN. [facility], 05/12/20 1910
[2020-05-12] MEDS: HEPARIN 25,000UTS/250ML PREMIX 250 ML IV PRN ×2 (11:47→23:18)
--- NOTE | 2020-05-12 12:25 | PDOC ---
CARDIO Progress Notes Date and Time Date of Service 05/12/2020 Time of Evaluation 1210 Subjective Subjective: Other (sedated) Vitals Vitals Vital Signs Date Time Temp Pulse Resp B/P (MAP) Pulse Ox O2 Delivery O2 Flow Rate FiO2 05/12/20 11:57 84 Ventilator 05/12/20 11:00 100.9 76 30 150/73 (98) 100.9 05/11/20 14:47 40.0 Weight Weight [ ] Input and Output Intake and Output Intake and Output 05/12/20 07:00 Intake Total 4269.60 ml Output Total 4650 ml Balance -380.40 ml IV Total 4269.60 ml Output Urine Total 4650 ml Laboratory Labs Laboratory Tests Test 05/11/20 18:30 05/11/20 21:17 05/12/20 00:30 05/12/20 06:30 Heparin Anti-Xa Act, Unfractionated 0.36 IU/mL (0.30-0.70) 0.25 IU/mL (0.30-0.70) 0.20 IU/mL (0.30-0.70) Glucose (Fingerstick) 150 mg/dL (70-99) White Blood Count 12.7 x10^3/uL (4.0-11.0) Red Blood Count 3.81 x10^6/uL (4.30-5.70) Hemoglobin 10.6 g/dL (13.0-17.5) Hematocrit 32.9 % (39.0-53.0) Mean Corpuscular Volume 86 fL (79-100) Mean Corpuscular Hemoglobin 28 pg (25-35) Mean Corpuscular Hemoglobin Concent 32 g/dL (31-37) Red Cell Distribution Width 13.8 % (11.5-14.5) Platelet Count 253 x10^3/uL (140-400) Sodium Level 139 mmol/L (136-145) Potassium Level 4.1 mmol/L (3.5-5.1) Chloride Level 102 mmol/L (98-107) Carbon Dioxide Level 33 mmol/L (21-32) Anion Gap 4 (6-14) Blood Urea Nitrogen 21 mg/dL (8-26) Creatinine 0.9 mg/dL (0.7-1.3) Estimated GFR (Cockcroft-Gault) 93.0 Glucose Level 142 mg/dL (70-99) Calcium Level 8.0 mg/dL (8.5-10.1) Phosphorus Level 3.7 mg/dL (2.6-4.7) Magnesium Level 2.1 mg/dL (1.8-2.4) Triglycerides Level 207 mg/dL (0-150) Test 05/12/20 08:00 O2 Saturation 80 % (92-99) Arterial Blood pH 7.40 (7.35-7.45) Arterial Blood pH (Temp corrected) 7.37 Arterial Blood pCO2 at Patient Temp 56 mmHg (35-46) Arterial Blood pCO2 (Temp correct) 60 mmHg Arterial Blood pO2 at Patient Temp 48 mmHg (75-108) Arterial Blood pO2 (Temp corrected) 53 mmHg Arterial Blood HCO3 33 mmol/L (21-28) Arterial Blood Base Excess 7 mmol/L (-3-3) FiO2 100/vent Microbiology Micro Microbiology 05/08/20 Gram Stain Evaluation - Final, Complete 05/08/20 Respiratory Culture - Final, Complete 05/06/20 Urine Culture - Final, Complete 05/06/20 Blood Culture - Final, Complete NO GROWTH AFTER 5 DAYS Physical Exam HEENT: Neck Supple W Full Motion Chest: Symmetric LUNGS: Other (mechanical vent) Heart: RRR (SR) Abdomen: Other (soft) Neurology: other (sedated) Assessment Assessment 1. Acute respiratory failure with Covid-19 Pneumonia/ARDS and with possible PE. Intubated/still requiring significant vent support 2. HTN urgency. controlled mainly with sedation and with paralytic 3. Mild transaminitis 4. Reactive sinus tachycardia: SR no significant ectopies 5. Obesity Recommendations 1. On empiric heparin. Optimization per pulmonary, now DNR 2. Continue current norvasc. labetolol PRN 3. Supportive care Justicifation of Admission Dx: Justifications for Admission: Justification of Admission Dx: Yes Comminuty Aquired Pneumonia: Dehydration MARTHA SAUCEDO APRN May 12, 2020 12:25
[2020-05-12] MEDS ORDERED: ANTI-COAG MONITOR BY PHARMACY. MC PRN (14:00)
--- NOTE | 2020-05-12 16:03 | NUR ---
SS following up with discharge planning. SS reviewed pt chart and discussed with pt RN. Pt is currently on the vent at 100%. COVID19 positive. Pt on TPN and IV Zosyn. DNR. Not stable. SS will continue to follow for discharge planning.
[2020-05-12] MEDS: LABETALOL 20 MG/4 ML DISP.SYRIN. IVP PRN (16:24)
[2020-05-12] MEDS ORDERED: hydrALAZINE 20 MG/ML VIAL. IVP PRN (17:15)
--- NOTE | 2020-05-12 18:30 | NUR ---
Patient's BP was elevated >180, patient was given IV Labetalol, which did not improve BP. Spoke with Dr. Aguilar, ordered Hydralazine IVP, which also did not help. Patient's oxygen then decreased from 90%-85%, tidal volumes on ventilator decreased from 350s to low 200s, patient was auscultated with no change in lung sounds. Patient was bolused with sedation medication and the rate of vecuronium was increased. BP slowly improved and tidal volumes improved to the low 300s.
[2020-05-12] MEDS ORDERED: [UNRECOGNIZED DRUG - OTHER] IV SCH (22:00)
[2020-05-12] MEDS ORDERED: DEXTROSE 70% IV SCH (22:00)
[2020-05-12] MEDS ORDERED: TOTAL PARENTERAL NUTRITION IV SCH (22:00)
[2020-05-12] MEDS ORDERED: AMINO ACID IV SCH (22:00)
[2020-05-13] VITALS (12 sets, daily range): BP systolic 147–207; BP diastolic 58–76
[2020-05-13] MEDS: MIDAZOLAM 100mg/100ml NS BAG 100 ML IV PRN ×2 (00:13→07:18)
[2020-05-13] MEDS: HEPARIN for IV BOLUS 10,000 UNIT/10 ML VIAL. IV PRN ×2 (00:54→08:25)
[2020-05-13] MEDS: VECURONIUM BROMIDE 50 MG in TOTAL VOLUME 50 ML IV PRN ×2 (01:40→07:17)
[2020-05-13] MEDS: DEXMEDETOMIDINE 400 MCG in IV NORMAL SALINE 100ML 96 ML IV PRN ×5 (01:41→10:36)
[2020-05-13] MEDS: fentaNYL HIGH DOSE PCA 55 ML IV PRN (03:15)
[2020-05-13] MEDS: PIPERACILLIN/TAZOBACTAM 3.375 GM in IV NORMAL SALINE 50ML 50 ML IV SCH (05:43)
[2020-05-13 06:46] LABS: HEMATOCRIT 30.6 % (39.0-53.0); HEMOGLOBIN 10.3 g/dL (13.0-17.5); RED BLOOD COUNT 3.58 x10^6/uL (4.30-5.70); RED CELL DISTRIBUTION WIDTH 13.9 % (11.5-14.5); WHITE BLOOD COUNT 12.9 x10^3/uL (4.0-11.0)
[2020-05-13] MEDS: LACTOBACILLUS RHAMNOSUS GG 1 CAPSULE. PO SCH (07:18)
[2020-05-13] MEDS: PANTOPRAZOLE IV PUSH 40 MG VIAL. IVP SCH (07:18)
[2020-05-13] MEDS: ZINC SULFATE 220 MG CAPSULE. PO SCH (07:18)
[2020-05-13] MEDS: CHOLECALCIFEROL (VITAMIN D3) 1,000 UNIT TABLET PO SCH (07:18)
[2020-05-13] MEDS: DEXAMETHASONE SOD PHOS 4 MG/ML VIAL IVP SCH (07:18)
[2020-05-13] MEDS: amLODIPine BESYLATE 10 MG TABLET PO SCH (07:19)
[2020-05-13] MEDS: ASCORBIC ACID 500 MG TABLET PO SCH (07:19)
[2020-05-13 07:49] LABS: CALCIUM 8.3 mg/dL (8.5-10.1); CREATININE 0.8 mg/dL (0.7-1.3); GFR 106.5; MAGNESIUM 2.2 mg/dL (1.8-2.4); PHOSPHORUS 3.3 mg/dL (2.6-4.7); POTASSIUM 4.4 mmol/L (3.5-5.1)
[2020-05-13] MEDS: ACETAMINOPHEN 650 MG/20.3 ML SOLUTION. PEG PRN (07:57)
--- NOTE | 2020-05-13 07:57 | PDOC ---
Infectious Disease Note Subjective Subjective Patient intubated/sedated FiO2 100% PEEP of 12 ROS ROS no n/v/d/ Vital Sign Vital Signs Vital Signs Date Time Temp Pulse Resp B/P (MAP) Pulse Ox O2 Delivery O2 Flow Rate FiO2 05/13/20 07:19 80 174/71 05/13/20 07:00 100.4 30 69 Ventilator 100.4 Physical Exam PHYSICAL EXAM GENERAL: Intubated and sedated male in no acute distress. HEENT: Normocephalic, atraumatic. ETT and OGT tube present. NECK: Supple. LUNGS: Decreased breath sounds. HEART: S1, S2, no murmurs. ABDOMEN: Soft, obese, nontender. Mildly distended. EXTREMITIES: No edema, no cyanosis. DERMATOLOGIC: Warm and dry. No generalized rash. NEUROLOGIC: Intubated. PSYCHIATRIC: Unable to obtain. Labs Lab Laboratory Tests Test 05/12/20 08:00 05/12/20 18:20 05/12/20 23:45 05/13/20 06:35 O2 Saturation 80 % (92-99) Arterial Blood pH 7.40 (7.35-7.45) Arterial Blood pH (Temp corrected) 7.37 Arterial Blood pCO2 at Patient Temp 56 mmHg (35-46) Arterial Blood pCO2 (Temp correct) 60 mmHg Arterial Blood pO2 at Patient Temp 48 mmHg (75-108) Arterial Blood pO2 (Temp corrected) 53 mmHg Arterial Blood HCO3 33 mmol/L (21-28) Arterial Blood Base Excess 7 mmol/L (-3-3) FiO2 100/vent Heparin Anti-Xa Act, Unfractionated 0.31 IU/mL (0.30-0.70) 0.21 IU/mL (0.30-0.70) 0.25 IU/mL (0.30-0.70) White Blood Count 12.9 x10^3/uL (4.0-11.0) Red Blood Count 3.58 x10^6/uL (4.30-5.70) Hemoglobin 10.3 g/dL (13.0-17.5) Hematocrit 30.6 % (39.0-53.0) Mean Corpuscular Volume 86 fL (79-100) Mean Corpuscular Hemoglobin 29 pg (25-35) Mean Corpuscular Hemoglobin Concent 34 g/dL (31-37) Red Cell Distribution Width 13.9 % (11.5-14.5) Platelet Count 250 x10^3/uL (140-400) Sodium Level 135 mmol/L (136-145) Potassium Level 4.4 mmol/L (3.5-5.1) Chloride Level 100 mmol/L (98-107) Carbon Dioxide Level 30 mmol/L (21-32) Anion Gap 5 (6-14) Blood Urea Nitrogen 21 mg/dL (8-26) Creatinine 0.8 mg/dL (0.7-1.3) Estimated GFR (Cockcroft-Gault) 106.5 Glucose Level 169 mg/dL (70-99) Calcium Level 8.3 mg/dL (8.5-10.1) Phosphorus Level 3.3 mg/dL (2.6-4.7) Magnesium Level 2.2 mg/dL (1.8-2.4) Micro Microbiology 05/08/20 Gram Stain Evaluation - Final, Resulted 05/08/20 Respiratory Culture - Preliminary, Resulted 05/06/20 Urine Culture - Final, Complete 05/06/20 Blood Culture - Preliminary, Resulted NO GROWTH AFTER 4 DAYS Objective Assessment 1. Fever 2. COVID-19 infection. 3. Acute hypoxic respiratory failure.S/P Intubation 4. Pneumonia 5. Hyponatremia. 6. Morbid obesity. 7. Smoker. 8. Transaminitis. 9. Anemia. 10. Uncontrolled hypertension. Plan Plan of Care Continue Zosyn Continue supportive care. Monitor labs and cultures. On steroids Pulmonary team following Discussed with nursing staff prognosis poor OUMAR MAZARIEGOS MD May 13, 2020 07:57
--- NOTE | 2020-05-13 08:10 | PDOC ---
[facility] PROGRESS NOTE Date of Service DOS: DATE: 05/13/20 TIME: 08:08 Chief Complaint Chief Complaint VTE Prophylaxis Ordered VTE Prophylaxis Devices: Yes VTE Pharmacological Prophylaxi: Yes Assessment/Plan Assessment/Plan Impression: Primary Impression: Fever secondary to viremia , sepsis Transaminitis Hyponatremia Acute hypoxic respiratory failure Extensive infiltrates throughout BILATERAL lung lord, concerning for covid/ SARS morbid obesity dvt prophylaxis, lovenox tobacco abuse disorder uncontrolled hypertension Intubated 2/2 respiratory decompensation Fever and tachycardia Remains vent 100% and PEEP of 12 prominent air-filled bowel throughout the visualized upper abdomen which are similar compared to the prior study. MORBID OBESITY plan admit blood cultures icu bed emperic iv antibiotics consult pulmonary follow lytes gi prophylaxis iv labetalol 5-10mg q 3 hrs prn bp support iv decadron 6 mg bid pepsid 20mg po bid zinc 220mg po daily, vitamin c, vitamin D SPUTUM CULTURE ID CONSULT IV ZOSYN TPN FiO2 100% PEEP of 12 40 min cc time History of Present Illness History of Present Illness Identification/Chief Complaint Chief Complaint seen in er with acute resp distress, known COVID POSITIVE 40-year-old male who arrives ambulatory to the emergency department complaining progressive difficulty breathing., breathing today has become considerably more labored than it has in the past 2 days. Patient reports on 05-04 he was diagnosed with coronavirus. TEMP on a rrival 103.2 F abg c/w resp alkalosis and hypoxia he has become progressively more short of breath and states he has mild chest tightness. HYPOXIC, alert and ill-appearing. 05/13: Patient seen in [place] [id number] ICU. Remains on vent, FiO2 100%, PEEP 12. Afeb rile. Discussed with RN, no acute events overnight. Continue supportive care, steroids, and antibiotic treatment. 05/12: Patient seen in [place] [address] ICU. On ventilator, FiO2 100%, PEEP 12. Continue IV steroids. Continue antibiotic treatment with Zosyn azithromycin. Discussed with RN. 05/11: Patient seen and evaluated in [place] [address] ICU. He is on vent, FiO2 100%, PEEP 12. He is febrile today. Continue antibiotic coverage with Zosyn. Continue steroids and supportive care. Charts and labs reviewed, LFTs improving. Vitals/I&O Vitals/I&O: Vital Signs Date Time Temp Pulse Resp B/P (MAP) Pulse Ox O2 Delivery O2 Flow Rate FiO2 05/13/20 07:19 80 174/71 05/13/20 07:00 100.4 30 69 Ventilator 100.4 I & O 05/12/20 05/12/20 05/13/20 15:00 23:00 07:00 Intake Total 300 ml 1524 ml 2181 ml Output Total 400 ml 575 ml 1050 ml Balance -100 ml 949 ml 1131 ml Physical Exam Physical Exam: GENERAL: Intubated and sedated male in no acute distress. HEENT: Normocephalic, atraumatic. ETT and OGT tube present. NECK: Supple. LUNGS: Decreased breath sounds. HEART: S1, S2, no murmurs. ABDOMEN: Soft, obese, nontender. Mildly distended. EXTREMITIES: No edema, no cyanosis. DERMATOLOGIC: Warm and dry. No generalized rash. NEUROLOGIC: Intubated. PSYCHIATRIC: Unable to obtain. General: No acute distress Heart: Regular rate (SR), Other (distant heart sounds) Abdomen: Other (distended and firm) Extremities: No clubbing, No cyanosis, Other (trace LE edema) Skin: No breakdown, No significant lesion Labs Labs: Laboratory Tests Test 05/12/20 18:20 05/12/20 23:45 05/13/20 06:35 Heparin Anti-Xa Act, Unfractionated 0.31 IU/mL (0.30-0.70) 0.21 IU/mL (0.30-0.70) 0.25 IU/mL (0.30-0.70) White Blood Count 12.9 x10^3/uL (4.0-11.0) Red Blood Count 3.58 x10^6/uL (4.30-5.70) Hemoglobin 10.3 g/dL (13.0-17.5) Hematocrit 30.6 % (39.0-53.0) Mean Corpuscular Volume 86 fL (79-100) Mean Corpuscular Hemoglobin 29 pg (25-35) Mean Corpuscular Hemoglobin Concent 34 g/dL (31-37) Red Cell Distribution Width 13.9 % (11.5-14.5) Platelet Count 250 x10^3/uL (140-400) Sodium Level 135 mmol/L (136-145) Potassium Level 4.4 mmol/L (3.5-5.1) Chloride Level 100 mmol/L (98-107) Carbon Dioxide Level 30 mmol/L (21-32) Anion Gap 5 (6-14) Blood Urea Nitrogen 21 mg/dL (8-26) Creatinine 0.8 mg/dL (0.7-1.3) Estimated GFR (Cockcroft-Gault) 106.5 Glucose Level 169 mg/dL (70-99) Calcium Level 8.3 mg/dL (8.5-10.1) Phosphorus Level 3.3 mg/dL (2.6-4.7) Magnesium Level 2.2 mg/dL (1.8-2.4) Assessment and Plan Assessmemt and Plan Problems Medical Problems: (1) COVID-19 Status: Acute (2) Hyponatremia Status: Acute (3) Respiratory failure Status: Acute (4) Transaminitis Status: Acute Comment Review of Relevant I have reviewed the following items kush (where applicable) has been applied. Medications: Current Medications Medications (Trade) Dose Ordered Sig/Eri Route PRN Reason Start Time Stop Time Status Last Admin Dose Admin Sodium Acetate 90 meq/Potassium Chloride 30 meq/ Potassium Phosphate 20 mmol/ Magnesium Sulfate 10 meq/Calcium Gluconate 10 meq/ Multivitamins 5 ml/Zinc/Copper/ Manganese/ Selenium 1 ml/ Total Parenteral Nutrition/Amino Acids/Dextrose/ Fat Emulsion Intravenous 1,512 ml @ 63 mls/hr TPN CONT IV 05/12/20 22:00 05/13/20 21:59 05/12/20 22:09 Info (Anti-Coagulation Monitoring By Pharmacy) 1 each PRN DAILY PRN MC SEE COMMENTS 05/12/20 14:00 05/12/20 13:56 Hydralazine HCl (Apresoline Inj) 10 mg PRN Q4HRS PRN IVP ELEVATED BP, SEE COMMENTS 05/12/20 17:15 05/12/20 17:26 Nicardipine HCl 50 mg/Sodium Chloride 250 ml @ 25 mls/hr CONT PRN IV SEE I/O RECORD 05/12/20 19:00 05/13/20 07:17 Justifications for Admission General Conditions Poss tachycardia?: Yes Justification for admission: Patient has tachycardia (> 100 beats per minute) which is not readily corrected by appropriate treatment within 12 to 24 hours. acute hypoxic resp failure Other Justification KELSEY LEAL MD May 13, 2020 08:10
[2020-05-13] MEDS ORDERED: LABETALOL 20 MG/4 ML DISP.SYRIN. IVP PRN (08:15)
[2020-05-13 08:39] LABS: BASE EXCESS ABG 6 mmol/L (-3-3); CORRECTED PCO2 ABG 56 mmHg; CORRECTED PH ABG 7.37; CORRECTED PO2 ABG 44 mmHg; HCO3 ABG 31 mmol/L (21-28); PCO2 ABG 52 mmHg (35-46); SAT O2 ABG 71 % (92-99)
[2020-05-13 08:46] LABS: PO2 ABG < 42 mmHg (75-108)
[2020-05-13] MEDS: HEPARIN 25,000UTS/250ML PREMIX 250 ML IV PRN (08:53)
--- NOTE | 2020-05-13 10:01 | NUR ---
SS following up with discharge planning. SS reviewed pt chart and discussed with pt RN. Pt is currently on the vent at 100%. COVID19 positive. Pt on TPN and IV Zosyn. DNR. Not stable. Family considering withdrawal of care. Physicians to contact family today to discuss. SS will continue to follow for discharge planning.
--- NOTE | 2020-05-13 10:48 | PDOC ---
CARDIO Progress Notes Date and Time Date of Service 05/13/2020 Time of Evaluation 1000 Subjective Subjective: Other Vitals Vitals Vital Signs Date Time Temp Pulse Resp B/P (MAP) Pulse Ox O2 Delivery O2 Flow Rate FiO2 05/13/20 10:00 100.4 83 30 148/67 (94) 73 Ventilator 100.4 Weight Weight [ ] Input and Output Intake and Output Intake and Output 05/13/20 07:00 Intake Total 4005 ml Output Total 2025 ml Balance 1980 ml IV Total 4005 ml Output Urine Total 2025 ml Laboratory Labs Laboratory Tests Test 05/12/20 18:20 05/12/20 23:45 05/13/20 06:35 05/13/20 08:00 Heparin Anti-Xa Act, Unfractionated 0.31 IU/mL (0.30-0.70) 0.21 IU/mL (0.30-0.70) 0.25 IU/mL (0.30-0.70) White Blood Count 12.9 x10^3/uL (4.0-11.0) Red Blood Count 3.58 x10^6/uL (4.30-5.70) Hemoglobin 10.3 g/dL (13.0-17.5) Hematocrit 30.6 % (39.0-53.0) Mean Corpuscular Volume 86 fL (79-100) Mean Corpuscular Hemoglobin 29 pg (25-35) Mean Corpuscular Hemoglobin Concent 34 g/dL (31-37) Red Cell Distribution Width 13.9 % (11.5-14.5) Platelet Count 250 x10^3/uL (140-400) Sodium Level 135 mmol/L (136-145) Potassium Level 4.4 mmol/L (3.5-5.1) Chloride Level 100 mmol/L (98-107) Carbon Dioxide Level 30 mmol/L (21-32) Anion Gap 5 (6-14) Blood Urea Nitrogen 21 mg/dL (8-26) Creatinine 0.8 mg/dL (0.7-1.3) Estimated GFR (Cockcroft-Gault) 106.5 Glucose Level 169 mg/dL (70-99) Calcium Level 8.3 mg/dL (8.5-10.1) Phosphorus Level 3.3 mg/dL (2.6-4.7) Magnesium Level 2.2 mg/dL (1.8-2.4) O2 Saturation 71 % (92-99) Arterial Blood pH 7.40 (7.35-7.45) Arterial Blood pH (Temp corrected) 7.37 Arterial Blood pCO2 at Patient Temp 52 mmHg (35-46) Arterial Blood pCO2 (Temp correct) 56 mmHg Arterial Blood pO2 at Patient Temp < 42 mmHg (75-108) Arterial Blood pO2 (Temp corrected) 44 mmHg Arterial Blood HCO3 31 mmol/L (21-28) Arterial Blood Base Excess 6 mmol/L (-3-3) FiO2 100/vent Microbiology Micro Microbiology 05/08/20 Gram Stain Evaluation - Final, Complete 05/08/20 Respiratory Culture - Final, Complete 05/06/20 Urine Culture - Final, Complete 05/06/20 Blood Culture - Final, Complete NO GROWTH AFTER 5 DAYS Physical Exam HEENT: Neck Supple W Full Motion Chest: Symmetric LUNGS: Other (intubated/vent) Heart: RRR (SR) Abdomen: Other Neurology: other Assessment Assessment 1. Acute respiratory failure with Covid-19 Pneumonia/ARDS and with possible PE. Intubated/still requiring significant vent support 2. HTN urgency: BP improved with addition of propofol 3. Mild transaminitis 4. Reactive sinus tachycardia: SR no significant ectopies 5. Obesity Recommendations 1. On empiric heparin. Optimization per pulmonary, now DNR Possible care withdrawal today. Very poor prognosis 2. Continue current norvasc. labetolol PRN 3. Supportive care Justicifation of Admission Dx: Justifications for Admission: Justification of Admission Dx: Yes Comminuty Aquired Pneumonia: Dehydration MARTHA SAUCEDO [employer] May 13, 2020 10:48
--- NOTE | 2020-05-13 11:23 | PDOC ---
PULMONARY PROGRESS NOTES DATE: 05/13/20 TIME: 11:10 Subjective Remains vent 100% and PEEP of 12 Febrile overnight Hypoxia on examination this morning despite ventilatory support, oxygen saturation 70's% PT. is now DNR Vitals Vital Signs Date Time Temp Pulse Resp B/P (MAP) Pulse Ox O2 Delivery O2 Flow Rate FiO2 05/13/20 10:00 100.4 83 30 148/67 (94) 73 Ventilator 100.4 Comments Pt. seen during pandemic, visual exam preformed RRR accessory muscle use no rash or edema intubated Labs Laboratory Tests Test 05/11/20 18:30 05/11/20 21:17 05/12/20 00:30 05/12/20 06:30 Heparin Anti-Xa Act, Unfractionated 0.36 IU/mL (0.30-0.70) 0.25 IU/mL (0.30-0.70) 0.20 IU/mL (0.30-0.70) Glucose (Fingerstick) 150 mg/dL (70-99) White Blood Count 12.7 x10^3/uL (4.0-11.0) Red Blood Count 3.81 x10^6/uL (4.30-5.70) Hemoglobin 10.6 g/dL (13.0-17.5) Hematocrit 32.9 % (39.0-53.0) Mean Corpuscular Volume 86 fL (79-100) Mean Corpuscular Hemoglobin 28 pg (25-35) Mean Corpuscular Hemoglobin Concent 32 g/dL (31-37) Red Cell Distribution Width 13.8 % (11.5-14.5) Platelet Count 253 x10^3/uL (140-400) Sodium Level 139 mmol/L (136-145) Potassium Level 4.1 mmol/L (3.5-5.1) Chloride Level 102 mmol/L (98-107) Carbon Dioxide Level 33 mmol/L (21-32) Anion Gap 4 (6-14) Blood Urea Nitrogen 21 mg/dL (8-26) Creatinine 0.9 mg/dL (0.7-1.3) Estimated GFR (Cockcroft-Gault) 93.0 Glucose Level 142 mg/dL (70-99) Calcium Level 8.0 mg/dL (8.5-10.1) Phosphorus Level 3.7 mg/dL (2.6-4.7) Magnesium Level 2.1 mg/dL (1.8-2.4) Triglycerides Level 207 mg/dL (0-150) Test 05/12/20 08:00 05/12/20 18:20 05/12/20 23:45 05/13/20 06:35 O2 Saturation 80 % (92-99) Arterial Blood pH 7.40 (7.35-7.45) Arterial Blood pH (Temp corrected) 7.37 Arterial Blood pCO2 at Patient Temp 56 mmHg (35-46) Arterial Blood pCO2 (Temp correct) 60 mmHg Arterial Blood pO2 at Patient Temp 48 mmHg (75-108) Arterial Blood pO2 (Temp corrected) 53 mmHg Arterial Blood HCO3 33 mmol/L (21-28) Arterial Blood Base Excess 7 mmol/L (-3-3) FiO2 100/vent Heparin Anti-Xa Act, Unfractionated 0.31 IU/mL (0.30-0.70) 0.21 IU/mL (0.30-0.70) 0.25 IU/mL (0.30-0.70) White Blood Count 12.9 x10^3/uL (4.0-11.0) Red Blood Count 3.58 x10^6/uL (4.30-5.70) Hemoglobin 10.3 g/dL (13.0-17.5) Hematocrit 30.6 % (39.0-53.0) Mean Corpuscular Volume 86 fL (79-100) Mean Corpuscular Hemoglobin 29 pg (25-35) Mean Corpuscular Hemoglobin Concent 34 g/dL (31-37) Red Cell Distribution Width 13.9 % (11.5-14.5) Platelet Count 250 x10^3/uL (140-400) Sodium Level 135 mmol/L (136-145) Potassium Level 4.4 mmol/L (3.5-5.1) Chloride Level 100 mmol/L (98-107) Carbon Dioxide Level 30 mmol/L (21-32) Anion Gap 5 (6-14) Blood Urea Nitrogen 21 mg/dL (8-26) Creatinine 0.8 mg/dL (0.7-1.3) Estimated GFR (Cockcroft-Gault) 106.5 Glucose Level 169 mg/dL (70-99) Calcium Level 8.3 mg/dL (8.5-10.1) Phosphorus Level 3.3 mg/dL (2.6-4.7) Magnesium Level 2.2 mg/dL (1.8-2.4) Test 05/13/20 08:00 O2 Saturation 71 % (92-99) Arterial Blood pH 7.40 (7.35-7.45) Arterial Blood pH (Temp corrected) 7.37 Arterial Blood pCO2 at Patient Temp 52 mmHg (35-46) Arterial Blood pCO2 (Temp correct) 56 mmHg Arterial Blood pO2 at Patient Temp < 42 mmHg (75-108) Arterial Blood pO2 (Temp corrected) 44 mmHg Arterial Blood HCO3 31 mmol/L (21-28) Arterial Blood Base Excess 6 mmol/L (-3-3) FiO2 100/vent Laboratory Tests Test 05/12/20 18:20 05/12/20 23:45 05/13/20 06:35 05/13/20 08:00 Heparin Anti-Xa Act, Unfractionated 0.31 IU/mL (0.30-0.70) 0.21 IU/mL (0.30-0.70) 0.25 IU/mL (0.30-0.70) White Blood Count 12.9 x10^3/uL (4.0-11.0) Red Blood Count 3.58 x10^6/uL (4.30-5.70) Hemoglobin 10.3 g/dL (13.0-17.5) Hematocrit 30.6 % (39.0-53.0) Mean Corpuscular Volume 86 fL (79-100) Mean Corpuscular Hemoglobin 29 pg (25-35) Mean Corpuscular Hemoglobin Concent 34 g/dL (31-37) Red Cell Distribution Width 13.9 % (11.5-14.5) Platelet Count 250 x10^3/uL (140-400) Sodium Level 135 mmol/L (136-145) Potassium Level 4.4 mmol/L (3.5-5.1) Chloride Level 100 mmol/L (98-107) Carbon Dioxide Level 30 mmol/L (21-32) Anion Gap 5 (6-14) Blood Urea Nitrogen 21 mg/dL (8-26) Creatinine 0.8 mg/dL (0.7-1.3) Estimated GFR (Cockcroft-Gault) 106.5 Glucose Level 169 mg/dL (70-99) Calcium Level 8.3 mg/dL (8.5-10.1) Phosphorus Level 3.3 mg/dL (2.6-4.7) Magnesium Level 2.2 mg/dL (1.8-2.4) O2 Saturation 71 % (92-99) Arterial Blood pH 7.40 (7.35-7.45) Arterial Blood pH (Temp corrected) 7.37 Arterial Blood pCO2 at Patient Temp 52 mmHg (35-46) Arterial Blood pCO2 (Temp correct) 56 mmHg Arterial Blood pO2 at Patient Temp < 42 mmHg (75-108) Arterial Blood pO2 (Temp corrected) 44 mmHg Arterial Blood HCO3 31 mmol/L (21-28) Arterial Blood Base Excess 6 mmol/L (-3-3) FiO2 100/vent Comments CXR 05/11/20 Impression: 1. Increased diffuse interstitial and alveolar opacities. Impression . IMPRESSION: 1. Acute respiratory failure secondary to COVID-19 viral pneumonia,/ARDS, worsening hypoxia, 2. COVID-19 viral pneumonia. 3. Possible bacterial pneumonia. 4. Hypertension. 5. Obesity. 6. Tobacco dependent. 7. Elevated liver chemistries. Plan . PLAN: continue vent support pressure control,of 32, 100% and a PEEP of 12, sats in 70's Follow ABG/CXR,as needed Adequate sedation, as needed paralytics as needed Symptomatic treatment of fever Continue steroids for full 10 day course, started on 05/06 Continue empiric antibiotics per infectious disease Start heparin gtt for empiric treatment of possible PE Follow cardiology recs Continue tube feeding for nutritional support, tolerating well DVT/GI PPX D/W RN and RT Pt. is DNR Poor prognosis, not likely to survive. I have spoken to . I recommended withdrawl of care. she is agreeable proceed with comfort care Critical care time 30 min SG BUENO MD May 13, 2020 11:23
[2020-05-13] MEDS ORDERED: NITROGLYCERIN OINT 1 GM PACKET. TP SCH (12:00)
--- NOTE | 2020-05-13 12:05 | NUR ---
Patient's called for an update, wanted to discuss withdrawing care but wanted a second opinion from Dr. Martino. Called [facility] for imminent referral, patient is not a candidate. Dr. Martino discussed the case with her and it was decided to palliatively extubate patient. Patient was extubated at 1136 and at 1147. Notified patient's , home is [facility]. Notified [facility] of cardiac time of , patient is not a candidate for tissue or eye. Patient's already took patient's belongings home.
--- NOTE | 2020-05-13 16:06 | PDOC3 ---
Discharge Summary Visit Information Date of Admission: May 06, 2020 Date of Discharge: May 13, 2020 Final Diagnosis Problems Medical Problems: (1) COVID-19 Status: Acute (2) Hyponatremia Status: Acute (3) Respiratory failure Status: Acute (4) Transaminitis Status: Acute Brief Hospital Course Allergies Allergies Coded Allergies Type Severity Reaction Last Updated Verified No Known Drug Allergies 05/06/20 No Vital Signs Vital Signs Date Time Temp Pulse Resp B/P (MAP) Pulse Ox O2 Delivery O2 Flow Rate FiO2 05/13/20 11:15 74 Ventilator 05/13/20 11:00 99.7 79 30 156/76 (102) 99.7 Lab Results Laboratory Tests Test 05/11/20 18:30 05/11/20 21:17 05/12/20 00:30 05/12/20 06:30 Heparin Anti-Xa Act, Unfractionated 0.36 IU/mL (0.30-0.70) 0.25 IU/mL (0.30-0.70) 0.20 IU/mL (0.30-0.70) Glucose (Fingerstick) 150 mg/dL (70-99) White Blood Count 12.7 x10^3/uL (4.0-11.0) Red Blood Count 3.81 x10^6/uL (4.30-5.70) Hemoglobin 10.6 g/dL (13.0-17.5) Hematocrit 32.9 % (39.0-53.0) Mean Corpuscular Volume 86 fL (79-100) Mean Corpuscular Hemoglobin 28 pg (25-35) Mean Corpuscular Hemoglobin Concent 32 g/dL (31-37) Red Cell Distribution Width 13.8 % (11.5-14.5) Platelet Count 253 x10^3/uL (140-400) Sodium Level 139 mmol/L (136-145) Potassium Level 4.1 mmol/L (3.5-5.1) Chloride Level 102 mmol/L (98-107) Carbon Dioxide Level 33 mmol/L (21-32) Anion Gap 4 (6-14) Blood Urea Nitrogen 21 mg/dL (8-26) Creatinine 0.9 mg/dL (0.7-1.3) Estimated GFR (Cockcroft-Gault) 93.0 Glucose Level 142 mg/dL (70-99) Calcium Level 8.0 mg/dL (8.5-10.1) Phosphorus Level 3.7 mg/dL (2.6-4.7) Magnesium Level 2.1 mg/dL (1.8-2.4) Triglycerides Level 207 mg/dL (0-150) Test 05/12/20 08:00 05/12/20 18:20 05/12/20 23:45 05/13/20 06:35 O2 Saturation 80 % (92-99) Arterial Blood pH 7.40 (7.35-7.45) Arterial Blood pH (Temp corrected) 7.37 Arterial Blood pCO2 at Patient Temp 56 mmHg (35-46) Arterial Blood pCO2 (Temp correct) 60 mmHg Arterial Blood pO2 at Patient Temp 48 mmHg (75-108) Arterial Blood pO2 (Temp corrected) 53 mmHg Arterial Blood HCO3 33 mmol/L (21-28) Arterial Blood Base Excess 7 mmol/L (-3-3) FiO2 100/vent Heparin Anti-Xa Act, Unfractionated 0.31 IU/mL (0.30-0.70) 0.21 IU/mL (0.30-0.70) 0.25 IU/mL (0.30-0.70) White Blood Count 12.9 x10^3/uL (4.0-11.0) Red Blood Count 3.58 x10^6/uL (4.30-5.70) Hemoglobin 10.3 g/dL (13.0-17.5) Hematocrit 30.6 % (39.0-53.0) Mean Corpuscular Volume 86 fL (79-100) Mean Corpuscular Hemoglobin 29 pg (25-35) Mean Corpuscular Hemoglobin Concent 34 g/dL (31-37) Red Cell Distribution Width 13.9 % (11.5-14.5) Platelet Count 250 x10^3/uL (140-400) Sodium Level 135 mmol/L (136-145) Potassium Level 4.4 mmol/L (3.5-5.1) Chloride Level 100 mmol/L (98-107) Carbon Dioxide Level 30 mmol/L (21-32) Anion Gap 5 (6-14) Blood Urea Nitrogen 21 mg/dL (8-26) Creatinine 0.8 mg/dL (0.7-1.3) Estimated GFR (Cockcroft-Gault) 106.5 Glucose Level 169 mg/dL (70-99) Calcium Level 8.3 mg/dL (8.5-10.1) Phosphorus Level 3.3 mg/dL (2.6-4.7) Magnesium Level 2.2 mg/dL (1.8-2.4) Test 05/13/20 08:00 O2 Saturation 71 % (92-99) Arterial Blood pH 7.40 (7.35-7.45) Arterial Blood pH (Temp corrected) 7.37 Arterial Blood pCO2 at Patient Temp 52 mmHg (35-46) Arterial Blood pCO2 (Temp correct) 56 mmHg Arterial Blood pO2 at Patient Temp < 42 mmHg (75-108) Arterial Blood pO2 (Temp corrected) 44 mmHg Arterial Blood HCO3 31 mmol/L (21-28) Arterial Blood Base Excess 6 mmol/L (-3-3) FiO2 100/vent Laboratory Tests Test 05/12/20 18:20 05/12/20 23:45 05/13/20 06:35 05/13/20 08:00 Heparin Anti-Xa Act, Unfractionated 0.31 IU/mL (0.30-0.70) 0.21 IU/mL (0.30-0.70) 0.25 IU/mL (0.30-0.70) White Blood Count 12.9 x10^3/uL (4.0-11.0) Red Blood Count 3.58 x10^6/uL (4.30-5.70) Hemoglobin 10.3 g/dL (13.0-17.5) Hematocrit 30.6 % (39.0-53.0) Mean Corpuscular Volume 86 fL (79-100) Mean Corpuscular Hemoglobin 29 pg (25-35) Mean Corpuscular Hemoglobin Concent 34 g/dL (31-37) Red Cell Distribution Width 13.9 % (11.5-14.5) Platelet Count 250 x10^3/uL (140-400) Sodium Level 135 mmol/L (136-145) Potassium Level 4.4 mmol/L (3.5-5.1) Chloride Level 100 mmol/L (98-107) Carbon Dioxide Level 30 mmol/L (21-32) Anion Gap 5 (6-14) Blood Urea Nitrogen 21 mg/dL (8-26) Creatinine 0.8 mg/dL (0.7-1.3) Estimated GFR (Cockcroft-Gault) 106.5 Glucose Level 169 mg/dL (70-99) Calcium Level 8.3 mg/dL (8.5-10.1) Phosphorus Level 3.3 mg/dL (2.6-4.7) Magnesium Level 2.2 mg/dL (1.8-2.4) O2 Saturation 71 % (92-99) Arterial Blood pH 7.40 (7.35-7.45) Arterial Blood pH (Temp corrected) 7.37 Arterial Blood pCO2 at Patient Temp 52 mmHg (35-46) Arterial Blood pCO2 (Temp correct) 56 mmHg Arterial Blood pO2 at Patient Temp < 42 mmHg (75-108) Arterial Blood pO2 (Temp corrected) 44 mmHg Arterial Blood HCO3 31 mmol/L (21-28) Arterial Blood Base Excess 6 mmol/L (-3-3) FiO2 100/vent Brief Hospital Course Mr. Aldana is a 40 old male who presented with acute respiratory failure secondary to COVID-19 viral pneumonia, ARDS, COVID-19, possible bacterial pneumonia, obesity, tobacco use. He was intubated and admitted to the ICU with consultation to pulmonology, infectious disease, and cardiology. He was treated appropriately with empiric antibiotics, IV steroids, and supportive care. Despite interventions patient continued to have worsening hypoxia. He was eventually made DNR. After discussion with his family, care was withdrawn and patient passed on 05/13/2020. Discharge Information Condition at Discharge: / Disposition/Orders: Justicifation of Admission Dx: Justifications for Admission: Justification of Admission Dx: Yes Comminuty Aquired Pneumonia: Dehydration KELSEY LEAL MD May 13, 2020 16:06
== END 2020-05-13 11:47 | DRG 207 ==
LOC: ER 14:12 → ED HOLD 15:20 → 1 WEST ICU 20:28
PROVIDERS: ADMIT Family Medicine; ATTEND Family Medicine
PROC: 5A1955Z Respiratory Ventilation, Greater than 96 Consecutive Hours (ICD-10-PCS; principal; 2020-05-08)
PROC: 0BH17EZ Insertion of Endotracheal Airway into Trachea, Via Natural or Artificial Opening (ICD-10-PCS; 2020-05-08)
DX: U07.1 COVID-19 (principal); A41.9 Sepsis, unspecified organism; J12.89 Other viral pneumonia; J80 Acute respiratory distress syndrome; E87.1 Hypo-osmolality and hyponatremia; E87.3 Alkalosis; I16.1 Hypertensive emergency; Z68.41 Body mass index [BMI] 40.0-44.9, adult; Z66 Do not resuscitate; D64.9 Anemia, unspecified; E66.01 Morbid (severe) obesity due to excess calories; F17.210 Nicotine dependence, cigarettes, uncomplicated; F17.290 Nicotine dependence, other tobacco product, uncomplicated; I10 Essential (primary) hypertension; Z82.49 Family history of ischemic heart disease and other diseases of the circulatory system; Z82.5 Family history of asthma and other chronic lower respiratory diseases
CPT/HCPCS: 36415; 36600; 71045; 71275; 74018; 80048; 80053; 81001; 82553; 82805; 82962; 83605; 83735; 83880; 84100; 84443; 84478; 84484; 85007; 85025; 85027; 85520; 87040; 87070; 87086; 87205; 87804; 93005; 94003; 94640; 94760; 96365; 96372; 96375; C9113; J0330; J0360; J0456; J0610; J0696; J1100; J1644; J1650; J1940; J1956; J2060; J2250; J2543; J2704; J2930; J3010; J3411; J3475; J3480; J3490; J7030; J7050; J7060; Q9967; 99285-25; G0378